=== PATIENT | male | born 1975 | race Caucasian/White ===

== ENCOUNTER → 2016-05-26 | Outpatient (CLI) | payer OTHER ==
[~2016-05-26] MED LIST: HYDR-757 PO; LEVO500T2 PO
--- NOTE | 2016-05-26 14:44 | Diagnostic Imaging Report ---
PROCEDURE: CT chest without contrast. TECHNIQUE: Multiple contiguous axial images were obtained through the chest without the use of intravenous contrast. INDICATION: Mid chest pain, shortness of breath, posterior upper back pain for two weeks, history of asthma. COMPARISON STUDIES: None. FINDINGS: Noncontrast CT scanning of the chest demonstrates normal appearance of the mediastinum. Heart size is normal. No pleural or pericardial effusions are present. The visualized portions of the abdomen are normal. The lungs are clear. No fibrosis or peribronchial thickening is present. The osseous structures appear unremarkable. IMPRESSION: Normal noncontrast CT scan of the chest. Dictated by: Dictated on workstation # [id number]
== END ==
LOC: RAD 12:21
PROVIDERS: ATTEND Nurse Practitioner Community Health
DX: J45.901 Unspecified asthma with (acute) exacerbation (principal)
CPT/HCPCS: 71250

== ENCOUNTER 2016-09-22 12:51 | Outpatient (CLI) | payer OTHER ==
[~2016-09-22] VITALS: Ht 177.8 cm; Wt 104.3 kg
[2016-09-22] MEDS ORDERED: RT-ALBUINH IH (14:26)
[2016-09-23] MEDS ORDERED: DOCU-143 PO (13:59)
[2016-09-23] MEDS ORDERED: HYDR-3812 PO (13:59)
== END 2016-09-22 14:35 ==
LOC: PREOP 12:51
PROVIDERS: ATTEND Surgery
DX: Z01.818 Encounter for other preprocedural examination (principal); L98.9 Disorder of the skin and subcutaneous tissue, unspecified

== ENCOUNTER 2016-09-23 11:12 | Day surgery (SDC) | payer OTHER ==
[~2016-09-23] VITALS: Ht 177.8 cm; Wt 104.3 kg
[~2016-09-23 11:12] MED LIST changes: +RT-ALBUINH IH
[2016-09-23 11:30] VITALS: BP 133/93
[2016-09-23] MEDS ORDERED: ceFAZolin 2 GM/NS 50 ML IV ONE (11:30)
[2016-09-23] MEDS ORDERED: CATHETER FLUSH 10 ML SYR IV PRN (11:30)
--- NOTE | 2016-09-23 12:13 | Progress Note-Pre Operative ---
Pre-Operative Progress Note H&P Reviewed The H&P was reviewed, patient examined and no changes noted. Date Seen by Provider: Sep 23, 2016 Time Seen by Provider: 12:13 Date H&P Reviewed: Sep 23, 2016 Time H&P Reviewed: 12:13 Pre-Operative Diagnosis: left lower extremity skin lesion JOSE CUMMINGS DO Sep 23, 2016 12:13 pm
[2016-09-23] MEDS ORDERED: LACTATED RINGERS 1,000 ML IV PRN (12:21)
[2016-09-23] MEDS ORDERED: LIDOCAINE 1% INJ 20 ML (XYLOCAINE) VIAL ONE (13:06)
[2016-09-23] MEDS ORDERED: BUPIVACAINE 0.5% 30 ML (SENSORCAINE) VIAL ONE (13:06)
[2016-09-23] MEDS ORDERED: MIDAZOLAM 2 MG/2 ML (VERSED) VIAL ONE (13:16)
[2016-09-23] MEDS ORDERED: fentaNYL INJECTION 100 MCG/2 ML AMP ONE (13:16)
[2016-09-23] MEDS ORDERED: proPOfol 200 MG/20 ML (DIPRIVAN) VIAL IV ONE (13:16)
[2016-09-23] MEDS ORDERED: SEVOFLURANE (ULTANE) 15 ML INHAL SOLN ONE ×4 (13:44→13:49)
[2016-09-23] MEDS ORDERED: ONDANSETRON 4 MG/2 ML (SDV) Z0FRAN ONE (13:44)
[2016-09-23] MEDS ORDERED: LACTATED RINGERS 1,000 ML IV ONE (13:49)
[2016-09-23] MEDS ORDERED: HYDR-3812 PO (13:59)
[2016-09-23] MEDS ORDERED: DOCU-143 PO (13:59)
[2016-09-23] MEDS ORDERED: HYDROmorphone (DILAUDID) 2 MG/ML VIAL IVP PRN (14:00)
[2016-09-23] MEDS ORDERED: morphine INJ 10 MG/ML 1ML (SYR OR VIAL) IVP PRN (14:00)
[2016-09-23] MEDS ORDERED: ONDANSETRON 4 MG/2 ML (SDV) Z0FRAN IVP PRN (14:00)
--- NOTE | 2016-09-23 14:01 | Discharge Inst-Simple/Standard ---
Discharge Inst-Standard Discharge Medications New, Converted or Re-Newed RX: RX on Chart Patient Instructions/Follow Up Plan of Care/Instructions/FU: Follow up with Dr. Bejarano in 2 weeks Keep wound clean and dry Activity as Tolerated: No Discharge Diet: No Restrictions Other Inst to Patient Follow up Appt: Make appointment for 2 weeks. Instructions: No lifting greater than 10 pounds. No strenuous activity. May shower in 24 hours, no tub bath or soaking. Use incentive spirometer at home as directed. No Smoking Skin/Wound Care: May remove bandages. keep wound clean and dry Symptoms to Report: Appetite Changes, Extremity Discoloration, Numbness/Tingling, Swelling Increased , Bleeding Excessive, Eyesight Changes, Pain Increased, Urine Color Change, Constipation(Persistent), Fever over 101 degree F, Pain/Pressure in chest, Urinating Difficulty, Cough Up/Vomit Blood, Heart Beat Irreg/Pounding, Pain/ Pressure in jaw, Vaginal Bleeding Increase, Cramps in feet or legs, Lightheadedness, Pain/Pressure in shoulder, Diarrhea(Persistent), Memory Changes Suddenly, Questions/Concerns, Weight gain consecutive days, Dizziness/ Fainting, Nausea/Vomiting, Shortness of Breath, Weight gain over 2 pounds If questions or concerns contact your physician Or seek help at emergency department. JEANNINE MCNULTY APRN Sep 23, 2016 2:00 pm
--- NOTE | 2016-09-23 14:23 | Progress Note-Post Operative ---
Post-Operative Progess Note Surgeon (s)/Dredge Pipe Operator (s) Surgeon JOSE CUMMINGS DO Dredge Pipe Operator: na Pre-Operative Diagnosis left lower extremity skin lesion Post-Operative Diagnosis same Procedure & Operative Findings Date of Procedure 09/23/16 Procedure Performed/Findings excision skin lesion left lower extremity 2x4 cm Anesthesia Type gen Estimated Blood Loss Estimated blood loss (mL): min Specimens/Packing Specimens Removed skin lesion JOSE CUMMINGS DO Sep 23, 2016 14:23
[2016-09-23 14:35] VITALS: BP 119/99
[2016-09-23 15:05] VITALS: BP 121/85
--- NOTE | 2016-09-24 12:33 | OPERATIVE REPORT ---
PROCEDURE PHYSICIAN: JOSE CUMMINGS DATE OF PROCEDURE: 09/23/2016 PREOPERATIVE DIAGNOSIS: Left lower extremity skin lesion. POSTOPERATIVE DIAGNOSIS: Left lower extremity skin lesion. SURGEON: Darci PROCEDURE: Excision of skin lesion left lower extremity 2 x 4 cm. ANESTHESIA: General. ESTIMATED BLOOD LOSS: Minimal. SPECIMENS: Skin lesion. INDICATIONS: The patient is a 41-year-old male with skin lesion of the left lower extremity. It was recommended to have it removed. He understands the risks and benefits and wished to proceed with the procedure. Consent was signed on the chart. PROCEDURE: The patient was taken operating suite. He was prepped and draped in sterile fashion. A surgical pause was performed. An elliptical incision measuring 2 x 4 cm was made around the skin lesion and cautery was used to remove the skin and subcutaneous tissue. The specimens were labeled short suture superiorly and long suture laterally. The skin was then mobilized from the subcutaneous tissues circumferentially in order to help with closure. 2-0 nylon was then used to close the skin using simple interrupted and vertical mattress sutures. Once the wound was closed, the area was washed and dried. Sterile bandage was applied. The patient tolerated the procedure well without any complications. He was taken to recovery room in stable condition. Job ID: [id number] Dictated Date: 09/23/2016 14:24:11 Innov[employer] Paraprofessional Date: 09/24/2016 12:24:53 / pankaj
--- OUTSIDE RECORDS SUMMARY | 2016-09-30 03:30 | XMS REPORT | Continuity of Care Document ---
Author Author [facility] Address Unknown Phone Unavailable Allergies Active Description Code Type Severity Reaction Onset Reported/Identified Relationship to Patient Clinical Status Yes No Known Drug Allergies [id number] Drug Allergy Unknown N/ A 11/23/2014 Medications Problems Date Dx Coded Attending Type Code Diagnosis Diagnosed By 08/21/2009 JOSE CHILDERS APRN 463 ACUTE TONSILLITIS 03/23/2010 JOSE CHILDERS APRN 278.02 OVERWEIGHT 03/23/2010 JOSE CHILDERS APRN 305.1 NONDEPENDENT TOBACCO USE DISORDER 03/23/2010 JOSE CHILDERS APRN 466.0 BRONCHITIS, ACUTE 03/23/2010 JOSE CHILDERS APRN 780.79 fatigue 03/23/2010 JOSE CHILDERS APRN 786.09 RESPIRATORY ABNORMALITY OTHER 03/23/2010 JOSE CHILDERS APRN V65.3 DIETARY SURVEILLANCE AND COUNSELING 04/26/2011 JOSE CHILDERS APRN 461.9 SINUSITIS ACUTE 04/26/2011 JOSE CHILDERS APRN 477.9 RHINITIS 04/26/2011 JOSE CHILDERS APRN 487.1 INFLUENZA WITH OTHER RESPIRATORY MANIFESTATIONS 04/26/2011 JOSE CHILDERS APRN 493.90 ASTHMA UNSPECIFIED 04/26/2011 JOSE CHILDERS APRN V65.42 COUNSELING - SMOKING CESSATION 11/23/2014 BELEM SANDERS APRN Ot 604.90 ORCHITIS/EPIDIDYMIT NOS 11/23/2014 BELEM SANDERS APRN Ot 789.00 ABDOMINAL PAIN, UNSPECIFIED SITE 06/24/2016 JOSE CHILDERS Ot J45.901 UNSPECIFIED ASTHMA WITH (ACUTE) EXACERBA 09/22/2016 JOSE CHILDERS Ot J45.901 UNSPECIFIED ASTHMA WITH (ACUTE) EXACERBA 09/23/2016 JOSE CUMMINGS DO Ot L98.9 DISORDER OF THE SKIN AND SUBCUTANEOUS TI Procedures Results Test Result Range Methicillin resistant Staphylococcus aureus (MRSA) screening culture - 11:25 Methicillin resistant Staphylococcus aureus (MRSA) screening culture NEG NRG Encounters ACCT No. Visit Date/Time Discharge Status Pt. Type Provider Facility Loc./Unit Complaint [id number] 09/12/2013 17:03:00 09/12/2013 23: 59:59 CLS Outpatient JOSE CHILDERS APRN
== END 2016-09-23 15:07 | disposition home or self-care (01) ==
LOC: SDC 11:12
PROVIDERS: ATTEND Surgery
DX: C43.72 Malignant melanoma of left lower limb, including hip (principal); I83.92 Asymptomatic varicose veins of left lower extremity; J45.909 Unspecified asthma, uncomplicated; F17.210 Nicotine dependence, cigarettes, uncomplicated
CPT/HCPCS: 87081; 88305; 88341; 88342

== ENCOUNTER → 2017-01-21 | Outpatient (CLI) | payer OTHER ==
[~2017-01-21] MED LIST changes: +DOCU-143 PO; +HYDR-3812 PO
== END ==
LOC: WOUNDCARE 12:07
PROVIDERS: ATTEND Surgery
DX: L97.222 Non-pressure chronic ulcer of left calf with fat layer exposed (principal); L03.116 Cellulitis of left lower limb; S81.802A Unspecified open wound, left lower leg, initial encounter; I87.332 Chronic venous hypertension (idiopathic) with ulcer and inflammation of left lower extremity; C43.72 Malignant melanoma of left lower limb, including hip
CPT/HCPCS: 11042; 87070; 87075; 87077; 87186; 87205

== ENCOUNTER → 2017-01-25 | Outpatient (CLI) | payer OTHER | LOC: WOUNDCARE 15:31 | PROVIDERS: ATTEND Surgery | DX: L97.222 Non-pressure chronic ulcer of left calf with fat layer exposed (principal); L03.116 Cellulitis of left lower limb; S81.802A Unspecified open wound, left lower leg, initial encounter; I87.332 Chronic venous hypertension (idiopathic) with ulcer and inflammation of left lower extremity; C43.72 Malignant melanoma of left lower limb, including hip | CPT/HCPCS: 11042; 11045 ==

== ENCOUNTER → 2017-02-04 | Outpatient (CLI) | payer OTHER | LOC: WOUNDCARE 08:23 | PROVIDERS: ATTEND Surgery | DX: L97.222 Non-pressure chronic ulcer of left calf with fat layer exposed (principal); S81.802A Unspecified open wound, left lower leg, initial encounter; I87.332 Chronic venous hypertension (idiopathic) with ulcer and inflammation of left lower extremity; C43.72 Malignant melanoma of left lower limb, including hip | CPT/HCPCS: 11042; 11045 ==

== ENCOUNTER → 2017-02-09 | Outpatient (CLI) | payer OTHER | LOC: WOUNDCARE 10:03 | PROVIDERS: ATTEND Surgery | DX: I87.332 Chronic venous hypertension (idiopathic) with ulcer and inflammation of left lower extremity (principal); L97.222 Non-pressure chronic ulcer of left calf with fat layer exposed; S81.802A Unspecified open wound, left lower leg, initial encounter; C43.72 Malignant melanoma of left lower limb, including hip | CPT/HCPCS: 11042; 11045 ==

== ENCOUNTER 2017-02-16 12:26 | Outpatient (RCR) | payer MEDICAID, OTHER ==
[~2017-02-16 12:26] MED LIST changes: +ACHD5005 PO; -HYDR-3812 PO
== END 2017-05-17 | disposition home or self-care (01) ==
LOC: ONC 12:26
PROVIDERS: ATTEND Internal Medicine Hematology & Oncology
DX: Z08 Encounter for follow-up examination after completed treatment for malignant neoplasm (principal); Z85.820 Personal history of malignant melanoma of skin; F17.210 Nicotine dependence, cigarettes, uncomplicated; Z80.3 Family history of malignant neoplasm of breast; Z80.0 Family history of malignant neoplasm of digestive organs; Z80.1 Family history of malignant neoplasm of trachea, bronchus and lung; R10.11 Right upper quadrant pain
CPT/HCPCS: 99214

== ENCOUNTER → 2017-02-18 | Outpatient (CLI) | payer OTHER ==
[~2017-02-18] MED LIST changes: -ACHD5005 PO; +HYDR-3812 PO
== END ==
LOC: WOUNDCARE 08:24
PROVIDERS: ATTEND Surgery
DX: L97.222 Non-pressure chronic ulcer of left calf with fat layer exposed (principal); S81.802A Unspecified open wound, left lower leg, initial encounter; I87.332 Chronic venous hypertension (idiopathic) with ulcer and inflammation of left lower extremity; C43.72 Malignant melanoma of left lower limb, including hip
CPT/HCPCS: 11042

== ENCOUNTER → 2017-03-03 | Outpatient (CLI) | payer OTHER ==
[~2017-03-03] MED LIST changes: +ACHD5005 PO; -HYDR-3812 PO
== END ==
LOC: WOUNDCARE 13:36
PROVIDERS: ATTEND Surgery
DX: L97.222 Non-pressure chronic ulcer of left calf with fat layer exposed (principal); S81.802A Unspecified open wound, left lower leg, initial encounter; I87.332 Chronic venous hypertension (idiopathic) with ulcer and inflammation of left lower extremity; C43.72 Malignant melanoma of left lower limb, including hip
CPT/HCPCS: 11042

== ENCOUNTER → 2017-03-11 | Outpatient (CLI) | payer OTHER | LOC: WOUNDCARE 08:22 | PROVIDERS: ATTEND Surgery | DX: L97.222 Non-pressure chronic ulcer of left calf with fat layer exposed (principal); S81.802A Unspecified open wound, left lower leg, initial encounter; I87.332 Chronic venous hypertension (idiopathic) with ulcer and inflammation of left lower extremity; C43.72 Malignant melanoma of left lower limb, including hip | CPT/HCPCS: 11042 ==

== ENCOUNTER → 2017-03-25 | Outpatient (CLI) | payer OTHER | LOC: WOUNDCARE 08:28 | PROVIDERS: ATTEND Surgery | DX: L97.222 Non-pressure chronic ulcer of left calf with fat layer exposed (principal); S81.802A Unspecified open wound, left lower leg, initial encounter; I87.332 Chronic venous hypertension (idiopathic) with ulcer and inflammation of left lower extremity; C43.72 Malignant melanoma of left lower limb, including hip | CPT/HCPCS: 99212 ==

== ENCOUNTER → 2017-05-09 | Outpatient (CLI) | payer OTHER | LOC: ONC 09:00 | PROVIDERS: ATTEND Nurse Practitioner Adult Health | DX: C43.72 Malignant melanoma of left lower limb, including hip (principal) | CPT/HCPCS: 99213 ==

== ENCOUNTER 2017-05-18 09:04 | Outpatient (RCR) | payer MEDICAID, OTHER ==
[2017-05-18 09:14] LABS: BASOPHILS % (AUTO) 0 % (0-10); EOSINOPHILS # (AUTO) 0.1 10^3/uL (0.0-0.3); EOSINOPHILS % (AUTO) 1 % (0-10); HEMATOCRIT 45 % (40-54); HEMOGLOBIN 15.4 G/DL (13.3-17.7); LYMPHOCYTES # (AUTO) 2.7 X 10^3 (1.0-4.0); LYMPHOCYTES % (AUTO) 26 % (12-44); MEAN CORPUSCULAR HEMOGLOBIN 32 PG (25-34); MEAN CORPUSCULAR HGB CONC 34 G/DL (32-36); MEAN CORPUSCULAR VOLUME 95 FL (80-99); MEAN PLATELET VOLUME 9.3 FL (7.4-10.4); MONOCYTES # (AUTO) 0.8 X 10^3 (0.0-1.0); MONOCYTES % (AUTO) 8 % (0-12); NEUTROPHILS # (AUTO) 6.6 X 10^3 (1.8-7.8); NEUTROPHILS % (AUTO) 65 % (42-75); PLATELET COUNT 314 10^3/uL (130-400); RED BLOOD COUNT 4.75 10^6/uL (4.35-5.85); RED CELL DISTRIBUTION WIDTH 13.4 % (10.0-14.5); WHITE BLOOD COUNT 10.1 10^3/uL (4.3-11.0)
[2017-05-18 09:44] LABS: ALANINE AMINOTRANSFERASE 24 U/L (0-55); ALBUMIN 4.3 GM/DL (3.2-4.5); ALKALINE PHOSPHATASE 66 U/L (40-136); BILIRUBIN,TOTAL 0.4 MG/DL (0.1-1.0); BUN/CREATININE RATIO 15; CALCIUM 9.6 MG/DL (8.5-10.1); CARBON DIOXIDE 27 MMOL/L (21-32); CHLORIDE 103 MMOL/L (98-107); CREATININE SERUM 1.14 MG/DL (0.60-1.30); GFR ESTIMATED > 60; GLUCOSE 126 MG/DL (70-105); POTASSIUM 3.9 MMOL/L (3.6-5.0); SODIUM 140 MMOL/L (135-145); TOTAL PROTEIN 7.4 GM/DL (6.4-8.2)
[2017-08-22] MEDS ORDERED: ACHD5005 PO (11:36)
[2017-08-22] MEDS ORDERED: DOCU-143 PO (11:36)
== END 2017-08-16 | disposition home or self-care (01) ==
LOC: ONC 09:04
PROVIDERS: ATTEND Internal Medicine Hematology & Oncology
DX: Z08 Encounter for follow-up examination after completed treatment for malignant neoplasm (principal); Z85.820 Personal history of malignant melanoma of skin; F17.210 Nicotine dependence, cigarettes, uncomplicated; Z80.3 Family history of malignant neoplasm of breast; Z80.0 Family history of malignant neoplasm of digestive organs; Z80.1 Family history of malignant neoplasm of trachea, bronchus and lung; R10.11 Right upper quadrant pain
CPT/HCPCS: 36415; 80053; 83615; 85025; 99213

== ENCOUNTER → 2017-08-03 | Outpatient (CLI) | payer MEDICAID, OTHER ==
--- NOTE | 2017-08-03 09:23 | Diagnostic Imaging Report ---
PROCEDURE: US Gallbladder. TECHNIQUE: Multiple real-time grayscale images were obtained over the right upper quadrant in various projections. INDICATION: Reflux. The pancreas is obscured by bowel gas. The liver is normal in size at 17.9 cm. No discrete liver masses identified. The portal vein is patent and shows normal direction of flow. The gallbladder is without stones or sludge. No wall thickening or pericholecystic fluid is seen. There is no biliary ductal dilatation. The right kidney is unremarkable. There is no ascites. Impression: No evidence of cholelithiasis or acute cholecystitis. Dictated by: Dictated on workstation # [id number]
== END ==
LOC: RAD 06:46
PROVIDERS: ATTEND Surgery
DX: K21.9 Gastro-esophageal reflux disease without esophagitis (principal)
CPT/HCPCS: 76705

== ENCOUNTER → 2017-08-12 | Outpatient (CLI) | payer MEDICAID ==
[~2017-08-12] MED LIST changes: +CATHETER FLUSH 10 ML SYR IV PRN
--- NOTE | 2017-08-12 13:35 | Diagnostic Imaging Report ---
EXAMINATION: Hepatobiliary scan. INDICATION: Epigastric pain. TECHNIQUE: The study was performed following administration of 4.5 mCi of technetium-99m Choletec. One can of Ensure was also used for the calculation of the ejection fraction. FINDINGS: There are no previous nuclear medicine studies available for comparison. The gallbladder ultrasound exam performed on 08/03/2017 failed to show any sign of cholelithiasis or acute cholecystitis. On this exam, there is no uptake of the radiotracer by the gallbladder until 35 minutes. Normally, there is uptake before 30 minutes. The slightly delayed uptake of the radiotracer by the gallbladder does suggest there may be an element of mild chronic cholecystitis present. There is extension of the radiotracer into the small bowel indicating that the common bile duct is not obstructed. The ejection fraction is 34.5% (normal 35%). IMPRESSION: 1. The slightly delayed uptake of the radiotracer by the gallbladder does raise the question of mild chronic cholecystitis. The ejection fraction is also just below normal limits. Clinical follow-up is recommended. 2. There is no evidence for obstruction of the common bile duct. Dictated by: Dictated on workstation # [id number]
== END ==
LOC: CARD 09:38
PROVIDERS: ATTEND Surgery
DX: R10.13 Epigastric pain (principal)
CPT/HCPCS: 78227

== ENCOUNTER 2017-08-18 05:40 | Outpatient (CLI) | payer MEDICAID ==
[~2017-08-18] VITALS: Ht 177.8 cm; Wt 104.3 kg
[~2017-08-18 05:40] MED LIST changes: -CATHETER FLUSH 10 ML SYR IV PRN
[2017-08-22] MEDS ORDERED: DOCU-143 PO (11:36)
[2017-08-22] MEDS ORDERED: ACHD5005 PO (11:36)
== END 2017-08-18 14:00 ==
LOC: PREOP 05:40
PROVIDERS: ATTEND Surgery
DX: Z01.818 Encounter for other preprocedural examination (principal); K82.8 Other specified diseases of gallbladder

== ENCOUNTER 2017-08-22 09:39 | Day surgery (SDC) | payer MEDICAID ==
[~2017-08-22] VITALS: Ht 177.8 cm; Wt 104.3 kg
--- OUTSIDE RECORDS SUMMARY | 2017-08-22 09:43 | XMS REPORT ---
Author Author DEEDEE MORRISSEY Organization [facility] Address [address] [place] [address] Care Team Providers Care Guide Dog Trainer Name Role Phone DEEDEE MORRISSEY Unavailable PROBLEMS Type Condition ICD9-CM Code VWN61-EN Code Onset Dates Condition Status SNOMED Code Problem Smoking F17.200 Active 38375587 Problem Mild intermittent asthma without complication J45.20 Active 790292914 Problem Cigarette nicotine dependence without complication F17.210 Active 92851330 Problem Skin lesion of left lower extremity L98.9 Active 76855256 Problem Asthma exacerbation J45.901 Active 395146459 ALLERGIES No Known Allergies SOCIAL HISTORY Never Assessed PLAN OF CARE Activity Details Follow Up prn Reason: VITAL SIGNS Height 70 in 2016-05-18 Weight 235 lbs 2016-05-18 Temperature 98.5 degrees Fahrenheit 2016-05-18 Heart Rate 76 bpm 2016-05-18 Respiratory Rate 20 2016-05-18 BMI 33.72 kg/m2 2016-05-18 Blood pressure systolic 130 mmHg 2016-05-18 Blood pressure diastolic 84 mmHg 2016-05-18 MEDICATIONS Medication Instructions Dosage Frequency Start Date End Date Duration Status Doxycycline Hyclate 100 mg Orally Twice a day 1 capsule 12h May, May, 07 days Active PredniSONE 50 mg Orally Once a day 1 tablet 24h May, May, 05 days Active Proventil HFA 108 (90 Base) MCG/ACT Inhalation every 4 hrs INHALE TWO PUFFS BY MOUTH FOUR TIMES DAILY NEEDED 4h 30 days Active RESULTS No Results PROCEDURES No Known procedures IMMUNIZATIONS No Known Immunizations MEDICAL (GENERAL) HISTORY Type Description Date Medical History acute asthma Surgical History right pinky surgery
--- OUTSIDE RECORDS SUMMARY | 2017-08-22 09:43 | XMS REPORT ---
Author Author JOSE CHILDERS [facility] Address [address] [place] [address] Care Team Providers Care Coin Machine Assembler Name Role Phone JOSE CHILDERS Unavailable PROBLEMS Type Condition ICD9-CM Code BQW13-IZ Code Onset Dates Condition Status SNOMED Code Problem Smoking F17.200 Active 41119385 Problem Mild intermittent asthma without complication J45.20 Active 934533853 Problem Cigarette nicotine dependence without complication F17.210 Active 14189638 Problem Skin lesion of left lower extremity L98.9 Active 09908724 Problem Asthma exacerbation J45.901 Active 631805070 ALLERGIES No Information SOCIAL HISTORY Never Assessed PLAN OF CARE VITAL SIGNS MEDICATIONS No Known Medications RESULTS No Results PROCEDURES No Known procedures IMMUNIZATIONS No Known Immunizations MEDICAL (GENERAL) HISTORY Type Description Date Medical History acute asthma Surgical History right pinky surgery
--- OUTSIDE RECORDS SUMMARY | 2017-08-22 09:43 | XMS REPORT | Clinical Summary ---
Author Author [facility] Organization [facility] Address Unknown Phone Unavailable Care Team Providers Care Recycling Specialist Name Role Phone No Pcp, Na PCP Unavailable Source Comments Some departments are not documenting in the electronic medical record. If you do not see the information that you expected, contact Release of Information in the Health Information Management department at [phone] for further assistance in locating additional records.[facility] Allergies No Known Allergies Current Medications Prescription Sig. Disp. Refills Start End Date Status Date albuterol (PROVENTIL HFA) Inhale 2 puffs by mouth Active 90 mcg/actuation inhaler into the lungs every 6 hours as needed for Wheezing or Shortness of Breath. Shake well before use. cephalexin (KEFLEX) 500 Take 500 mg by mouth four Active mg capsule times daily. budesonide/formoterol Inhale 2 puffs by mouth Active (SYMBICORT HFA) 160/4.5 into the lungs twice mcg inhalation daily. HYDROcodone/acetaminophen Take 1 tablet by mouth 60 tablet 0 11/26/19 Active (NORCO) 5/325 mg tablet every 4 hours as needed 17 for Pain IBUPROFEN IB PO Take by mouth daily. Active oxyCODONE (ROXICODONE, Take 1-2 tablets by mouth 50 tablet 0 12/10/19 Active OXY-IR) 5 mg tablet every 4 hours as needed 17 for Pain gabapentin (NEURONTIN) Take 1 capsule by mouth 30 capsule 2 01/05/20 Active 300 mg capsule at bedtime daily. 17 Bismuth Apply xeroform to the 30 each 2 01/05/20 Active Tribrom-Petrolatum,Wh graft on the left leg 17 (XEROFORM PETROLATUM daily DRESSING) 4 X 4 " bndg Active Problems Problem Noted Date Melanoma (HCC) 10/14/2016 Family History Medical History Relation Name Comments Cancer-Lung Father Cancer-Breast Sister Cancer-Colon Sister Relation Name Status Comments Father Sister Social History Tobacco Use Types Packs/Day Years Used Date Current Every Day Smoker 1 27 Smokeless Tobacco: Never Used Alcohol Use Drinks/Week oz/Week Comments Yes 2 Shots of 1.2 pt reorts drinking 16 ounces of peppermint liquor Schnopps per week Sex Assigned at Date Recorded Not on file Last Filed Vital Signs Vital Sign Reading Time Taken Blood Pressure 130/93 01/04/2017 11:10 AM CDT Pulse 77 01/04/2017 11:10 AM CDT Temperature 37 C (98.6 F) 01/04/2017 11:10 AM CDT Respiratory Rate 16 12/09/2016 3:26 PM CDT Oxygen Saturation 100% 01/04/2017 11:10 AM CDT Inhaled Oxygen - - Concentration Weight 107.8 kg (237 lb 9.6 oz) 01/04/2017 11:10 AM CDT Height 177.8 cm (5' 10") 01/04/2017 11:10 AM CDT Body Mass Index 34.09 01/04/2017 11:10 AM CDT Plan of Treatment Health Maintenance Due Date Last Done Comments PHYSICAL (COMPREHENSIVE) 07/14/1983 EXAM PERTUSSIS VACCINE 07/14/1987 HIV SCREENING 07/14/1991 TETANUS VACCINE 1993 INFLUENZA VACCINE 12/05/2017 Results Not on filefrom Last 3 Months
--- OUTSIDE RECORDS SUMMARY | 2017-08-22 09:43 | XMS REPORT ---
Author Author GRAYTANYA Monge Organization [facility] Address [address] [place] [address] Care Team Providers Care Mechanical Unit Repairer Name Role Phone TANYA GRAY Unavailable PROBLEMS Type Condition ICD9-CM Code QTZ86-AN Code Onset Dates Condition Status SNOMED Code Problem Smoking F17.200 Active 16642378 Problem Mild intermittent asthma without complication J45.20 Active 108852403 Problem Cigarette nicotine dependence without complication F17.210 Active 67955036 Problem Skin lesion of left lower extremity L98.9 Active 90911865 Problem Asthma exacerbation J45.901 Active 940283107 ALLERGIES No Known Allergies ENCOUNTERS Encounter Location Date Diagnosis [place] [id number] [address] [id number] [place] [address] Sep, Skin lesion of left lower extremity L98.9 ; Mild intermittent asthma without complication J45.20 and Smoking F17.200 [place] [address] [address] [id number] [place] [address] Sep, Skin lesion of left lower extremity L98.9 [facility] [address] [place] [address] May, [facility] [id number] [place] [address] May, [place] [address] [place] [address] 17 May, 2016 Asthma exacerbation J45.901 [place] [id number] [place] [address] 14 May, 2016 Mild persistent asthma with acute exacerbation J45.31 and Cigarette nicotine dependence without complication F17.210 [place] [id number] [place] [address] July, [facility] [id number] [address] Jun, [facility] [address] [place] [address] Jun, [facility] [id number] [address] Sep, [facility] [address] [place] [address] Sep, [facility] [address] [facility] [id number] [address] Apr, [facility] [address] [place] [address] Mar, [facility] [id number] [address] Aug, IMMUNIZATIONS No Known Immunizations SOCIAL HISTORY Never Assessed REASON FOR VISIT spot on the lower left leg that has been there for a few years but now is getting larger and tender to the touch, PT has concerns beacuase cancer runs in his family- Matilda BRAMBILA PLAN OF CARE Activity Details Follow Up 2 - 3 Days Reason:est care VITAL SIGNS Height 70 in 2016-09-14 Weight 233.1 lbs 2016-09-14 Temperature 99.0 degrees Fahrenheit 2016-09-14 Heart Rate 86 bpm 2016-09-14 Respiratory Rate 22 2016-09-14 BMI 33.44 kg/m2 2016-09-14 Blood pressure systolic 126 mmHg 2016-09-14 Blood pressure diastolic 90 mmHg 2016-09-14 MEDICATIONS Medication Instructions Dosage Frequency Start Date End Date Duration Status Proventil HFA 108 (90 Base) MCG/ACT Inhalation every 4 hrs INHALE TWO PUFFS BY MOUTH FOUR TIMES DAILY NEEDED 4h 30 days Active RESULTS No Results PROCEDURES No Known procedures INSTRUCTIONS MEDICATIONS ADMINISTERED No Known Medications MEDICAL (GENERAL) HISTORY Type Description Date Medical History acute asthma Surgical History right pinky surgery
--- OUTSIDE RECORDS SUMMARY | 2017-08-22 09:43 | XMS REPORT ---
Author Author JOSE CHILDERS Organization [facility] Address [address] [place] [address] Care Team Providers Care Implementation Project Coordinator Name Role Phone JOSE CHILDERS Unavailable PROBLEMS Type Condition ICD9-CM Code DGL87-PT Code Onset Dates Condition Status SNOMED Code Problem Smoking F17.200 Active 00826433 Problem Mild intermittent asthma without complication J45.20 Active 892719717 Problem Cigarette nicotine dependence without complication F17.210 Active 05019733 Problem Skin lesion of left lower extremity L98.9 Active 96780642 Problem Asthma exacerbation J45.901 Active 641325503 ALLERGIES No Known Allergies SOCIAL HISTORY Never Assessed PLAN OF CARE VITAL SIGNS Height 70 in 2016-05-21 Weight 232.1 lbs 2016-05-21 Temperature 98.8 degrees Fahrenheit 2016-05-21 Heart Rate 94 bpm 2016-05-21 Respiratory Rate 20 2016-05-21 Oximetry on room air:98 % 2016-05-21 BMI 33.30 kg/m2 2016-05-21 Blood pressure systolic 130 mmHg 2016-05-21 Blood pressure diastolic 86 mmHg 2016-05-21 MEDICATIONS Medication Instructions Dosage Frequency Start Date End Date Duration Status Proventil HFA 108 (90 Base) MCG/ACT Inhalation every 4 hrs INHALE TWO PUFFS BY MOUTH FOUR TIMES DAILY NEEDED 4h 30 days Active PredniSONE 50 mg Orally Once a day 1 tablet 24h May, May, 05 days Active Doxycycline Hyclate 100 mg Orally Twice a day 1 capsule 12h May, May, 07 days Active Chantix 1 MG Orally Twice a day 1 tablet 12h 17 May, 2016 Nov, 30 day(s) Active RESULTS Name Result Date Reference Range CT Scan : Chest w/o Contrast 2016-05-26 PROCEDURES Procedure Date Ordered Result Body Site MEASURE BLOOD OXYGEN LEVEL May 21, 2016 IMMUNIZATIONS No Known Immunizations MEDICAL (GENERAL) HISTORY Type Description Date Medical History acute asthma Surgical History right pinky surgery
--- OUTSIDE RECORDS SUMMARY | 2017-08-22 09:44 | XMS REPORT ---
Author Author JOSE CHILDERS [facility] Address [address] [place] [address] Care Team Providers Care Wire Drawing Machine Tender Name Role Phone JOSE CHILDERS Unavailable PROBLEMS Type Condition ICD9-CM Code KIG68-TG Code Onset Dates Condition Status SNOMED Code Problem Smoking F17.200 Active 67344867 Problem Mild intermittent asthma without complication J45.20 Active 589578282 Problem Cigarette nicotine dependence without complication F17.210 Active 47117897 Problem Skin lesion of left lower extremity L98.9 Active 62449489 Problem Asthma exacerbation J45.901 Active 191291309 ALLERGIES No Information SOCIAL HISTORY Never Assessed PLAN OF CARE VITAL SIGNS MEDICATIONS No Known Medications RESULTS No Results PROCEDURES No Known procedures IMMUNIZATIONS No Known Immunizations MEDICAL (GENERAL) HISTORY Type Description Date Medical History acute asthma Surgical History right pinky surgery
--- OUTSIDE RECORDS SUMMARY | 2017-08-22 09:45 | XMS REPORT | Continuity of Care Document ---
Author Author Formerly [facility] Address Unknown Phone Unavailable Allergies Active Description Code Type Severity Reaction Onset Reported/Identified Relationship to Patient Clinical Status Yes NO KNOWN DRUG ALLERGIES UNKNOWN NO KNOWN DRUG ALLERG Yes No Known Drug Allergies [id number] Drug Allergy Unknown N/A 11/23/2014 Medications Medication Packaging Start Date Stop Date Route Dosage Sig FENTANYL INJ 100 MCG/2CC VIAL MCG 11/20/2016 11/20/2016 ONCE&2046 Hydromorphone inj 2mg/cc vial (Dilaudid) MG 11/20/2016 11/20/2016 PRN ONCE NORMAL SALINE 50CC IV BAG INJ (NS 50CC MINI-BAG) ml 11/20/2016 11/20/2016 ONCE&2135 SMZ/TMP DS TAB (SEPTRA DS) (Bactrim DS) TAB 11/20/2016 11/20/2016 ONCE&2137 Hydromorphone inj 2mg/cc vial (Dilaudid) MG 11/20/2016 11/20/2016 PRN ONCE KETOROLAC VIAL INJ 30 MG/CC (TORADOL VIAL) MG 11/20/2016 11/20/2016 PRN ONCE OXYCODONE/APAP 10MG/325MG TAB(PERCOCET-10) TAB 11/20/2016 11/20/2016 PRN ONCE SMZ/TMP DS TAB (SEPTRA DS) (Bactrim DS) TAB 11/21/2016 11/27/2016 BID&0800,2000 Hydromorphone inj 2mg/cc vial (Dilaudid) MG 12/23/2016 12/23/2016 ONCE&1725 AMOX-CLAV 875/125 TAB 875 MG-125MG (AUGMENTIN) TAB 12/23/2016 12/23/2016 ONCE&1728 Hydromorphone inj 2mg/cc vial (Dilaudid) MG 12/23/2016 12/23/2016 PRN ONCE BUDESONIDE/FORMOTEROL INH 160 /4.5MCG (SYMBICORT) Dose(s) 06/30/2017 07/07/2017 BID&0800,2000 PANTOPRAZOLE TAB 40 MG (PROTONIX) Dose(s) 07/01/2017 07/07/2017 QAM&0800 LACTATED RINGERS 1000CC IV BAG INJ ml 07/04/2017 07/11/2017 CONTINUOUSEVERY 0 Hour ALBUTEROL SVN 2.5MG/3CC LIQ 2.5 MG (PROVENTIL MILA 2.5MG/3CC) MG 07/04/2017 07/04/2017 ONCE&0804 Problems Date Dx Coded Attending Type Code [...] 04/26/2011 JOSE CHILDERS APRN 477.9 RHINITIS 04/26/2011 OJSE CHILDERS APRN 487.1 INFLUENZA WITH OTHER RESPIRATORY [...] UNSPECIFIED ASTHMA WITH (ACUTE) EXACERBA 09/22/2016 JOSE CUMMINGS DO Ot L98.9 DISORDER OF THE SKIN AND SUBCUTANEOUS TI 09/22/2016 JOSE CUMMINGS DO Ot Z01.818 ENCOUNTER FOR OTHER PREPROCEDURAL EXAMIN 09/23/2016 JOSE CUMMINGS DO Ot 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, I 09/23/2016 JOSE CUMMINGS DO Ot F17.210 NICOTINE DEPENDENCE, CIGARETTES, UNCOMPL 09/23/2016 JOSE CUMMINGS DO Ot 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 09/23/2016 JOSE CUMMINGS DO Ot J45.909 UNSPECIFIED ASTHMA, UNCOMPLICATED 09/23/2016 JOSE CUMMINGS DO Ot L98.9 DISORDER OF THE SKIN AND SUBCUTANEOUS TI 11/20/2016 Brokob, Diana W 172.7 MALIGNANT MELANOMA OF SKIN OF LOWER LIMB, INCLUDING HIP 11/20/2016 Brokob, Diana A 338.18 OTHER ACUTE POSTOPERATIVE PAIN 11/20/2016 Brokob, Diana W 729.5 PAIN IN LIMB 11/20/2016 Brokob, Diana W 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, INCLUDING HIP 11/20/2016 Brokob, Diana A G89.18 OTHER ACUTE POSTPROCEDURAL PAIN 11/20/2016 Brokob Diana W M79.662 PAIN IN LEFT LOWER LEG 12/23/2016 Brokob, Diana W 041.11 METHICILLIN SUSCEPTIBLE STAPHYLOCOCCUS AUREUS INFECTION IN CONDITIONS CLASSIFIED ELSEWHERE AND OF UNSPECIFIED SITE 12/23/2016 Brokob, Diana W 041.7 PSEUDOMONAS INFECTION IN CONDITIONS CLASSIFIED ELSEWHERE AND OF UNSPECIFIED SITE 12/23/2016 Brokob, Diana A 998.59 OTHER POSTOPERATIVE INFECTION 12/23/2016 Brokob, Diana W B95.61 METHICILLIN SUSCEP STAPH INFCT CAUSING DIS CLASSD ELSWHR 12/23/2016 Brokob, Diana W B96.5 PSEUDOMONAS (MALLEI) CAUSING DISEASES CLASSD ELSWHR 12/23/2016 Brokob, Diana A T81.4XXA INFECTION FOLLOWING A PROCEDURE, INITIAL ENCOUNTER 01/27/2017 ANNETTE BIALEY, COLBY Moore Ot 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, I 01/27/2017 ANNETTE BAILEY, COLBY Moore Ot I87.332 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 01/27/2017 ANNETTE BAILEY, COLBY Moore Ot L03.116 CELLULITIS OF LEFT LOWER LIMB 01/27/2017 COLBY BRYANT MD, Ot L97.222 NON-PRESSURE CHRONIC ULCER OF LEFT CALF 01/27/2017 COLBY BRYANT MD, Ot S81.802A UNSPECIFIED OPEN WOUND, LEFT LOWER LEG, 02/17/2017 AYAKA REID MD Ot F17.210 NICOTINE DEPENDENCE, CIGARETTES, UNCOMPL 02/17/2017 AYAKA REID MD, Ot R10.11 RIGHT UPPER QUADRANT PAIN 02/17/2017 AYAKA REID MD, Ot Z08 ENCNTR FOR FOLLOW-UP EXAM AFTER TRTMT FO 02/17/2017 AYAKA REID MD, Ot Z80.0 FAMILY HISTORY OF MALIGNANT NEOPLASM OF 02/17/2017 AYAKA REID MD, Ot Z80.1 FAMILY HISTORY OF MALIG NEOPLASM OF TRAC 02/17/2017 AYAKA REID MD, Ot Z80.3 FAMILY HISTORY OF MALIGNANT NEOPLASM OF 02/17/2017 AYAKA REID MD, Ot Z85.820 PERSONAL HISTORY OF MALIGNANT MELANOMA O 02/24/2017 COLBY BRYANT MD, Ot 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, I 02/24/2017 COLBY BRYANT MD, Ot I87.332 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 02/24/2017 COLBY BRYANT MD, Ot L97.222 NON-PRESSURE CHRONIC ULCER OF LEFT CALF 02/24/2017 COLBY BRYANT MD, Ot S81.802A UNSPECIFIED OPEN WOUND, LEFT LOWER LEG, 03/09/2017 COLBY BRYANT MD, Ot 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, I 03/09/2017 COLBY BRYANT MD, Ot I87.332 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 03/09/2017 COLBY BRYANT MD Ot L97.222 NON-PRESSURE CHRONIC ULCER OF LEFT CALF 03/09/2017 COLBY BRYATN MD, Ot S81.802A UNSPECIFIED OPEN WOUND, LEFT LOWER LEG, 03/14/2017 COLBY BRYANT MD, Ot 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, I 03/14/2017 COLBY BRYANT MD, Ot I87.332 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 03/14/2017 COLBY BRYANT MD, Ot L03.116 CELLULITIS OF LEFT LOWER LIMB 03/14/2017 COLBY BRYANT MD, Ot L97.222 NON-PRESSURE CHRONIC ULCER OF LEFT CALF 03/14/2017 COLBY BRYANT MD, Ot S81.802A UNSPECIFIED OPEN WOUND, LEFT LOWER LEG, 03/14/2017 COLBY BRYANT MD, Ot 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, I 03/14/2017 COLBY BRYANT MD, Ot I87.332 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 03/14/2017 COLBY BRYANT MD, Ot L03.116 CELLULITIS OF LEFT LOWER LIMB 03/14/2017 COLBY BRYANT MD, Ot L97.222 NON-PRESSURE CHRONIC ULCER OF LEFT CALF 03/14/2017 COLBY BRYANT MD, Ot S81.802A UNSPECIFIED OPEN WOUND, LEFT LOWER LEG, 03/14/2017 COLBY BRYANT MD, Ot 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, I 03/14/2017 COLBY BRYANT MD, Ot I87.332 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 03/14/2017 COLBY BRYANT MD, Ot L97.222 NON-PRESSURE CHRONIC ULCER OF LEFT CALF 03/14/2017 COLBY BRYANT MD, Ot S81.802A UNSPECIFIED OPEN WOUND, LEFT LOWER LEG, 03/14/2017 COLBY BRYANT MD, Ot 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, I 03/14/2017 COLBY BRYANT MD, Ot I87.332 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 03/14/2017 COLBY BRYANT MD, Ot L97.222 NON-PRESSURE CHRONIC ULCER OF LEFT CALF 03/14/2017 COLBY BRYANT MD, Ot S81.802A UNSPECIFIED OPEN WOUND, LEFT LOWER LEG, 03/14/2017 AYAKA REID MD Ot F17.210 NICOTINE DEPENDENCE, CIGARETTES, UNCOMPL 03/14/2017 AYAKA REID MD Ot R10.11 RIGHT UPPER QUADRANT PAIN 03/14/2017 AYAKA REID MD Ot Z08 ENCNTR FOR FOLLOW-UP EXAM AFTER TRTMT FO 03/14/2017 AYAKA REID MD Ot Z80.0 FAMILY HISTORY OF MALIGNANT NEOPLASM OF 03/14/2017 AYAKA REID MD, Ot Z80.1 FAMILY HISTORY OF MALIG NEOPLASM OF TRAC 03/14/2017 AYAKA REID MD, Ot Z80.3 FAMILY HISTORY OF MALIGNANT NEOPLASM OF 03/14/2017 AYAKA REID MD, Ot Z85.820 PERSONAL HISTORY OF MALIGNANT MELANOMA O 03/14/2017 COLBY BRYANT MD, Ot 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, I 03/14/2017 COLBY BRYANT MD, Ot I87.332 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 03/14/2017 COLBY BRYANT MD, Ot L97.222 NON-PRESSURE CHRONIC ULCER OF LEFT CALF 03/14/2017 COLBY BRYANT MD, Ot S81.802A UNSPECIFIED OPEN WOUND, LEFT LOWER LEG, 03/14/2017 COLBY BRYANT MD, Ot 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, I 03/14/2017 COLBY BRYANT MD, Ot I87.332 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 03/14/2017 COLBY BRYANT MD, Ot L97.222 NON-PRESSURE CHRONIC ULCER OF LEFT CALF 03/14/2017 COLBY BRYANT MD, Ot S81.802A UNSPECIFIED OPEN WOUND, LEFT LOWER LEG, 03/14/2017 COLBY BRYANT MD, Ot 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, I 03/14/2017 COLBY BRYANT MD, Ot I87.332 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 03/14/2017 COLBY BRYANT MD, Ot L97.222 NON-PRESSURE CHRONIC ULCER OF LEFT CALF 03/14/2017 COLBY BRYANT MD, Ot S81.802A UNSPECIFIED OPEN WOUND, LEFT LOWER LEG, 03/15/2017 COLBY BRYANT MD, Ot 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, I 03/15/2017 COLBY BRYANT MD, Ot I87.332 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 03/15/2017 COLBY BRYANT MD Ot L03.116 CELLULITIS OF LEFT LOWER LIMB 03/15/2017 COLBY BRYANT MD, Ot L97.222 NON-PRESSURE CHRONIC ULCER OF LEFT CALF 03/15/2017 COLBY BRYANT MD, Ot S81.802A UNSPECIFIED OPEN WOUND, LEFT LOWER LEG, 03/17/2017 COLBY BRYANT MD, Ot 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, I 03/17/2017 COLBY BRYANT MD, Ot I87.332 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 03/17/2017 COLBY BRYANT MD, Ot L97.222 NON-PRESSURE CHRONIC ULCER OF LEFT CALF 03/17/2017 COLBY BRYANT MD, Ot S81.802A UNSPECIFIED OPEN WOUND, LEFT LOWER LEG, 04/04/2017 COLBY BRYANT MD, Ot 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, I 04/04/2017 COLBY BRYANT MD, Ot I87.332 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 04/04/2017 COLBY BRYANT MD, Ot L97.222 NON-PRESSURE CHRONIC ULCER OF LEFT CALF 04/04/2017 COLBY BRYANT MD, Ot S81.802A UNSPECIFIED OPEN WOUND, LEFT LOWER LEG, 05/17/2017 AYAKA REID MD Ot F17.210 NICOTINE DEPENDENCE, CIGARETTES, UNCOMPL 05/17/2017 AYAKA REID MD Ot R10.11 RIGHT UPPER QUADRANT PAIN 05/17/2017 AYAKA REID MD, Ot Z08 ENCNTR FOR FOLLOW-UP EXAM AFTER TRTMT FO 05/17/2017 AYAKA REID MD, Ot Z80.0 FAMILY HISTORY OF MALIGNANT NEOPLASM OF 05/17/2017 AYAKA REID MD, Ot Z80.1 FAMILY HISTORY OF MALIG NEOPLASM OF TRAC 05/17/2017 AYAKA REID MD, Ot Z80.3 FAMILY HISTORY OF MALIGNANT NEOPLASM OF 05/17/2017 AYAKA REID MD, Ot Z85.820 PERSONAL HISTORY OF MALIGNANT MELANOMA O 05/18/2017 JOSE CHILDERS Ot J45.901 UNSPECIFIED ASTHMA WITH (ACUTE) EXACERBA 05/18/2017 COLBY BRYANT MD, Ot 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, I 05/18/2017 COLBY BRYANT MD, Ot I87.332 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 05/18/2017 COLBY BRYANT MD Ot L03.116 CELLULITIS OF LEFT LOWER LIMB 05/18/2017 COLBY BRYANT MD, Ot L97.222 NON-PRESSURE CHRONIC ULCER OF LEFT CALF 05/18/2017 COLBY BRYANT MD, Ot S81.802A UNSPECIFIED OPEN WOUND, LEFT LOWER LEG, 05/18/2017 COLBY BRYANT MD, Ot 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, I 05/18/2017 COLBY BRYANT MD, Ot I87.332 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 05/18/2017 COLBY BRYANT MD, Ot L03.116 CELLULITIS OF LEFT LOWER LIMB 05/18/2017 COLBY BRYANT MD, Ot L97.222 NON-PRESSURE CHRONIC ULCER OF LEFT CALF 05/18/2017 COLBY BRYANT MD, Ot S81.802A UNSPECIFIED OPEN WOUND, LEFT LOWER LEG, 05/18/2017 COLBY BRYANT MD, Ot 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, I 05/18/2017 COLBY BRYANT MD, Ot I87.332 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 05/18/2017 COLBY BRYANT MD, Ot L97.222 NON-PRESSURE CHRONIC ULCER OF LEFT CALF 05/18/2017 COLBY BRYANT MD, Ot S81.802A UNSPECIFIED OPEN WOUND, LEFT LOWER LEG, 05/18/2017 COLBY BRYANT MD, Ot 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, I 05/18/2017 COLBY BRYANT MD, Ot I87.332 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 05/18/2017 COLBY BRYANT MD, Ot L97.222 NON-PRESSURE CHRONIC ULCER OF LEFT CALF 05/18/2017 COLBY BRYANT MD, Ot S81.802A UNSPECIFIED OPEN WOUND, LEFT LOWER LEG, 05/18/2017 COLBY BRYANT MD, Ot 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, I 05/18/2017 COLBY BRYANT MD, Ot I87.332 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 05/18/2017 COLBY BRYANT MD, Ot L97.222 NON-PRESSURE CHRONIC ULCER OF LEFT CALF 05/18/2017 COLBY BRYANT MD, Ot S81.802A UNSPECIFIED OPEN WOUND, LEFT LOWER LEG, 05/18/2017 COLBY BRYANT MD, Ot 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, I 05/18/2017 COLBY BRYANT MD, Ot I87.332 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 05/18/2017 COLBY BRYANT MD, Ot L97.222 NON-PRESSURE CHRONIC ULCER OF LEFT CALF 05/18/2017 COLBY BRYANT MD, Ot S81.802A UNSPECIFIED OPEN WOUND, LEFT LOWER LEG, 05/18/2017 COLBY BRYANT MD, Ot 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, I 05/18/2017 COLBY BRYANT MD, Ot I87.332 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 05/18/2017 COLBY BRYANT MD Ot L97.222 NON-PRESSURE CHRONIC ULCER OF LEFT CALF 05/18/2017 COLBY BRYANT MD, Ot S81.802A UNSPECIFIED OPEN WOUND, LEFT LOWER LEG, 05/18/2017 COLBY BRYANT MD, Ot 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, I 05/18/2017 COLBY BRYANT MD, Ot I87.332 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 05/18/2017 COLBY BRYANT MD Ot L97.222 NON-PRESSURE CHRONIC ULCER OF LEFT CALF 05/18/2017 COLBY BRYANT MD Ot S81.802A UNSPECIFIED OPEN WOUND, LEFT LOWER LEG, 05/18/2017 GARNETTRANDY Raya LOR Ot 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, I 05/18/2017 AYAKA REID MD Ot F17.210 NICOTINE DEPENDENCE, CIGARETTES, UNCOMPL 05/18/2017 AYAKA REID MD Ot R10.11 RIGHT UPPER QUADRANT PAIN 05/18/2017 AYAKA REID MD Ot Z08 ENCNTR FOR FOLLOW-UP EXAM AFTER TRTMT FO 05/18/2017 AYAKA REID MD Ot Z80.0 FAMILY HISTORY OF MALIGNANT NEOPLASM OF 05/18/2017 AYAKA REID MD Ot Z80.1 FAMILY HISTORY OF MALIG NEOPLASM OF TRAC 05/18/2017 AYAKA REID MD Ot Z80.3 FAMILY HISTORY OF MALIGNANT NEOPLASM OF 05/18/2017 AYAKA REID MD Ot Z85.820 PERSONAL HISTORY OF MALIGNANT MELANOMA O 05/18/2017 AYAKA REID MD Ot F17.210 NICOTINE DEPENDENCE, CIGARETTES, UNCOMPL 05/18/2017 AYAKA REID MD Ot R10.11 RIGHT UPPER QUADRANT PAIN 05/18/2017 AYAKA REID MD Ot Z08 ENCNTR FOR FOLLOW-UP EXAM AFTER TRTMT FO 05/18/2017 AYAKA REID MD Ot Z80.0 FAMILY HISTORY OF MALIGNANT NEOPLASM OF 05/18/2017 AYAKA REID MD Ot Z80.1 FAMILY HISTORY OF MALIG NEOPLASM OF TRAC 05/18/2017 AYAKA REID MD Ot Z80.3 FAMILY HISTORY OF MALIGNANT NEOPLASM OF 05/18/2017 AYAKA REID MD Ot Z85.820 PERSONAL HISTORY OF MALIGNANT MELANOMA O 05/18/2017 COLBY BRYANT MD Ot 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, I 05/18/2017 COLBY BRYANT MD Ot I87.332 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 05/18/2017 COLBY BRYANT MD Ot L03.116 CELLULITIS OF LEFT LOWER LIMB 05/18/2017 COLBY BRYANT MD, Ot L97.222 NON-PRESSURE CHRONIC ULCER OF LEFT CALF 05/18/2017 COLBY BRYANT MD, Ot S81.802A UNSPECIFIED OPEN WOUND, LEFT LOWER LEG, 05/18/2017 COLBY BRYANT MD, Ot 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, I 05/18/2017 COLBY BRYANT MD, Ot I87.332 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 05/18/2017 COLBY BRYANT MD Ot L03.116 CELLULITIS OF LEFT LOWER LIMB 05/18/2017 COLBY BRYANT MD, Ot L97.222 NON-PRESSURE CHRONIC ULCER OF LEFT CALF 05/18/2017 COLBY BRYANT MD, Ot S81.802A UNSPECIFIED OPEN WOUND, LEFT LOWER LEG, 05/18/2017 COLBY BRYANT MD, Ot 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, I 05/18/2017 COLBY BRYANT MD, Ot I87.332 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 05/18/2017 COLBY BRYANT MD, Ot L03.116 CELLULITIS OF LEFT LOWER LIMB 05/18/2017 COLBY BRYANT MD, Ot L97.222 NON-PRESSURE CHRONIC ULCER OF LEFT CALF 05/18/2017 COLBY BRYANT MD, Ot S81.802A UNSPECIFIED OPEN WOUND, LEFT LOWER LEG, 05/18/2017 COLBY BRYANT MD, Ot 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, I 05/18/2017 COLBY BRYANT MD, Ot I87.332 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 05/18/2017 COLBY BRYANT MD, Ot L97.222 NON-PRESSURE CHRONIC ULCER OF LEFT CALF 05/18/2017 COLBY BRYANT MD, Ot S81.802A UNSPECIFIED OPEN WOUND, LEFT LOWER LEG, 05/18/2017 COLBY BRYANT MD, Ot 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, I 05/18/2017 COLBY BRYANT MD, Ot I87.332 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 05/18/2017 COLBY BRYANT MD, Ot L97.222 NON-PRESSURE CHRONIC ULCER OF LEFT CALF 05/18/2017 COLBY BRYANT MD, Ot S81.802A UNSPECIFIED OPEN WOUND, LEFT LOWER LEG, 05/18/2017 COLBY BRYANT MD, Ot 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, I 05/18/2017 COLBY BRYANT MD, Ot I87.332 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 05/18/2017 COLBY BRYANT MD, Ot L97.222 NON-PRESSURE CHRONIC ULCER OF LEFT CALF 05/18/2017 COLBY BRYANT MD, Ot S81.802A UNSPECIFIED OPEN WOUND, LEFT LOWER LEG, 05/18/2017 COLBY BRYANT MD, Ot 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, I 05/18/2017 COLBY BRYANT MD, Ot I87.332 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 05/18/2017 COLBY BRYANT MD, Ot L97.222 NON-PRESSURE CHRONIC ULCER OF LEFT CALF 05/18/2017 COLBY BRYANT MD, Ot S81.802A UNSPECIFIED OPEN WOUND, LEFT LOWER LEG, 05/18/2017 COLBY BRYANT MD, Ot 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, I 05/18/2017 COLBY BRYANT MD, Ot I87.332 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 05/18/2017 COLBY BRYANT MD, Ot L97.222 NON-PRESSURE CHRONIC ULCER OF LEFT CALF 05/18/2017 COLBY BRYANT MD, Ot S81.802A UNSPECIFIED OPEN WOUND, LEFT LOWER LEG, 05/18/2017 COLBY BRYANT MD, Ot 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, I 05/18/2017 COLBY BRYANT MD, Ot I87.332 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 05/18/2017 COLBY BRYANT MD Ot L97.222 NON-PRESSURE CHRONIC ULCER OF LEFT CALF 05/18/2017 COLBY BYRANT MD, Ot S81.802A UNSPECIFIED OPEN WOUND, LEFT LOWER LEG, 05/18/2017 RANDY GARNETT Ot 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, I 05/19/2017 COLBY BRYANT MD, Ot 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, I 05/19/2017 COLBY BRYANT MD, Ot I87.332 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 05/19/2017 COLBY BRYANT MD Ot L97.222 NON-PRESSURE CHRONIC ULCER OF LEFT CALF 05/19/2017 COLBY BRYANT MD, Ot S81.802A UNSPECIFIED OPEN WOUND, LEFT LOWER LEG, 05/19/2017 COLBY BRYANT MD, Ot 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, I 05/19/2017 COLBY BRYANT MD, Ot I87.332 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 05/19/2017 COLBY BRYANT MD, Ot L97.222 NON-PRESSURE CHRONIC ULCER OF LEFT CALF 05/19/2017 COLBY BRYANT MD, Ot S81.802A UNSPECIFIED OPEN WOUND, LEFT LOWER LEG, 05/25/2017 COLBY BRYANT MD, Ot 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, I 05/25/2017 COLBY BRYANT MD, Ot I87.332 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 05/25/2017 COLBY BRYANT MD Ot L03.116 CELLULITIS OF LEFT LOWER LIMB 05/25/2017 COLBY BRYANT MD, Ot L97.222 NON-PRESSURE CHRONIC ULCER OF LEFT CALF 05/25/2017 COLBY BRYANT MD, Ot S81.802A UNSPECIFIED OPEN WOUND, LEFT LOWER LEG, 05/25/2017 COLBY BRYANT MD, Ot 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, I 05/25/2017 COLBY BRYANT MD, Ot I87.332 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 05/25/2017 COLBY BRYANT MD, Ot L03.116 CELLULITIS OF LEFT LOWER LIMB 05/25/2017 COLBY BRYANT MD, Ot L97.222 NON-PRESSURE CHRONIC ULCER OF LEFT CALF 05/25/2017 COLBY BRYANT MD, Ot S81.802A UNSPECIFIED OPEN WOUND, LEFT LOWER LEG, 05/25/2017 COLBY BRYANT MD, Ot 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, I 05/25/2017 COLBY BRYANT MD, Ot I87.332 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 05/25/2017 COLBY BRYANT MD, Ot L97.222 NON-PRESSURE CHRONIC ULCER OF LEFT CALF 05/25/2017 COLBY BRYANT MD, Ot S81.802A UNSPECIFIED OPEN WOUND, LEFT LOWER LEG, 05/25/2017 COLBY BRYANT MD, Ot 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, I 05/25/2017 COLBY BRYANT MD, Ot I87.332 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 05/25/2017 COLBY BRYANT MD, Ot L97.222 NON-PRESSURE CHRONIC ULCER OF LEFT CALF 05/25/2017 COLBY BRYANT MD, Ot S81.802A UNSPECIFIED OPEN WOUND, LEFT LOWER LEG, 05/25/2017 COLBY BRYANT MD, Ot 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, I 05/25/2017 COLBY BRYANT MD, Ot I87.332 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 05/25/2017 COLBY BRYANT MD Ot L97.222 NON-PRESSURE CHRONIC ULCER OF LEFT CALF 05/25/2017 COLBY BRYANT MD, Ot S81.802A UNSPECIFIED OPEN WOUND, LEFT LOWER LEG, 05/25/2017 COLBY BRYANT MD, Ot 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, I 05/25/2017 COLBY BRYANT MD, Ot I87.332 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 05/25/2017 COLBY BRYANT MD, Ot L97.222 NON-PRESSURE CHRONIC ULCER OF LEFT CALF 05/25/2017 COLBY BRYANT MD, Ot S81.802A UNSPECIFIED OPEN WOUND, LEFT LOWER LEG, 05/25/2017 COLBY BRAYNT MD, Ot 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, I 05/25/2017 COLBY BRYANT MD, Ot I87.332 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 05/25/2017 COLBY BRYANT MD, Ot L97.222 NON-PRESSURE CHRONIC ULCER OF LEFT CALF 05/25/2017 COLBY BRYANT MD, Ot S81.802A UNSPECIFIED OPEN WOUND, LEFT LOWER LEG, 05/25/2017 COLBY BRYANT MD, Ot 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, I 05/25/2017 COLBY BRYANT MD, Ot I87.332 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 05/25/2017 COLBY BRYANT MD, Ot L97.222 NON-PRESSURE CHRONIC ULCER OF LEFT CALF 05/25/2017 COLBY BRYANT MD, Ot S81.802A UNSPECIFIED OPEN WOUND, LEFT LOWER LEG, 05/25/2017 RANDY GARNETT Ot 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, I 06/16/2017 AYAKA REID MD Ot F17.210 NICOTINE DEPENDENCE, CIGARETTES, UNCOMPL 06/16/2017 AYAKA REID MD Ot R10.11 RIGHT UPPER QUADRANT PAIN 06/16/2017 AYAKA REID MD Ot Z08 ENCNTR FOR FOLLOW-UP EXAM AFTER TRTMT FO 06/16/2017 AYAKA REID MD Ot Z80.0 FAMILY HISTORY OF MALIGNANT NEOPLASM OF 06/16/2017 AYAAK REID MD Ot Z80.1 FAMILY HISTORY OF MALIG NEOPLASM OF TRAC 06/16/2017 AYAKA REID MD Ot Z80.3 FAMILY HISTORY OF MALIGNANT NEOPLASM OF 06/16/2017 AYAKA REID MD Ot Z85.820 PERSONAL HISTORY OF MALIGNANT MELANOMA O 06/23/2017 AYAKA REID MD Ot F17.210 NICOTINE DEPENDENCE, CIGARETTES, UNCOMPL 06/23/2017 AYAKA REID MD Ot R10.11 RIGHT UPPER QUADRANT PAIN 06/23/2017 AYAKA REID MD Ot Z08 ENCNTR FOR FOLLOW-UP EXAM AFTER TRTMT FO 06/23/2017 AYAKA REID MD, Ot Z80.0 FAMILY HISTORY OF MALIGNANT NEOPLASM OF 06/23/2017 AYAKA REID MD Ot Z80.1 FAMILY HISTORY OF MALIG NEOPLASM OF TRAC 06/23/2017 AYAKA REID MD, Ot Z80.3 FAMILY HISTORY OF MALIGNANT NEOPLASM OF 06/23/2017 AYAKA REID MD Ot Z85.820 PERSONAL HISTORY OF MALIGNANT MELANOMA O 08/04/2017 JOSE CUMMINGS DO Ot K21.9 GASTRO-ESOPHAGEAL REFLUX DISEASE WITHOUT Procedures There is no data. Results Test Result Range Methicillin resistant Staphylococcus aureus (MRSA) screening culture - 11:25 Methicillin resistant Staphylococcus aureus (MRSA) screening culture NEG NRG BMP - 11/20/16 20:55 Anion Gap 15 6-14 BUN 15 mg/dL 5-25 Calcium 9.4 mg/dL 8.3-10.4 Chloride 100 mmol/L 95-114 CO2 25 mEq/L 22-33 Creat 0.81 mg/dL 0.50-1.50 eGFR 105 mL/min/1.73m2 >59 Glucose 94 mg/dL 70-110 Osmo 282 280-295 Potassium 3.7 mmol/L 3.5-5.3 Sodium 136 mmol/L 134-148 Blood Culture - 11/20/16 20:55 PRELIM CULTURE RESULTS Blood Culture Negative, No Growth Day 1 FINAL CULTURE RESULTS Blood Culture Negative, No Growth Day 5 MEDIA PLATED Setup at 21:21 on [id number] Culture Media Position B36 CULTURE SOURCE drawn via IV start @ Left arm Blood Culture - 11/20/16 21:00 PRELIM CULTURE RESULTS Blood Culture Negative, No Growth Day 1 FINAL CULTURE RESULTS Blood Culture Negative, No Growth Day 5 MEDIA PLATED Setup at 21:21 on [id number] Culture Media Position B30 CULTURE SOURCE Drawn @ Right Arm Other Culture - 12/23/16 17:16 PRELIM CULTURE RESULTS Abundant coag pos [id number] gram neg [id number] / ID to follow MEDIA PLATED Setup at 17:34 on 12/23/2016 Sensi - 12/23/16 17:16 FINAL CULTURE RESULTS Staphylococcus aureus (Isolate 1) Ampicillin/Sulbactam <=8/4 Ampicillin >8 Amoxicillin/K Clavulanate <=4/2 Ceftriaxone <=8 Clindamycin <=0.5 Cefoxitin Screen <=4 Ciprofloxacin <=1 Daptomycin <=0.5 Erythromycin <=0.5 Nitrofurantoin <=32 Gentamicin <=4 Gentamicin Synergy Screen N/R Inducible Clindamycin N/R Levofloxacin <=1 Linezolid 2 Moxifloxacin <=0.5 Oxacillin <=0.25 Penicillin >8 Rifampin <=1 Streptomycin Synergy N/R Synercid <=0.5 Trimethoprim/ Sulfamethoxazole <=0.5/9.5 Tetracycline <=4 Vancomycin 2 Sensi - 12/23/16 17:16 Ampicillin/Sulbactam >16/8 Ampicillin >16 Amoxicillin/K Clavulanate >16/8 Ceftriaxone >32 Ciprofloxacin <=1 Nitrofurantoin >64 Gentamicin <=4 Levofloxacin <=2 Trimethoprim/ Sulfamethoxazole >2/38 Tetracycline >8 Amikacin <=16 Aztreonam <=8 Ceftazidime 4 Ceftazidime/K Clavulanate >2 Cephalothin >16 Cefotaxime 32 Cefotaxime/K Clavulanate >4 Cefoxitin >16 Cefazolin >16 Cefepime <=8 Cefuroxime >16 Ertapenem 4 Imipenem <=4 Meropenem <=4 Piperacillin/Tazobactam <=16 Piperacillin <=16 Tigecycline N/R Tobramycin <=4 FINAL CULTURE RESULTS Pseudomonas aeruginosa (Isolate 2) Other Culture - 01/20/17 17:30 PRELIM CULTURE RESULTS Abundant Gram Positive - MARYJO / ID to [id number] Gram Negative - No further workup MEDIA PLATED Setup at 17:43 01/20/2017 Sensi - 01/20/17 17:30 FINAL CULTURE RESULTS Staphylococcus aureus (Isolate 1) Ampicillin/Sulbactam <=8/4 Ampicillin >8 Amoxicillin/K Clavulanate <=4/2 Ceftriaxone <=8 Clindamycin <=0.5 Cefoxitin Screen <=4 Ciprofloxacin <=1 Daptomycin <=0.5 Erythromycin <=0.5 Nitrofurantoin <=32 Gentamicin <=4 Gentamicin Synergy Screen N/R Inducible Clindamycin N/R Levofloxacin <=1 Linezolid 2 Moxifloxacin <=0.5 Oxacillin <=0.25 Penicillin >8 Rifampin <=1 Streptomycin Synergy N/R Synercid <=0.5 Trimethoprim/ Sulfamethoxazole <=0.5/9.5 Tetracycline <=4 Vancomycin 1 Bacteria identification in isolate by anaerobe culture - 01/21/17 13:12 Bacteria identification in isolate by anaerobe culture NOANA [facility] Gram stain microscopy - 01/21/17 13:12 GRAM STAIN RESULT NO BACTERIA OBSERVED [facility] Bacteria identification in wound by culture - 01/21/17 13:12 Bacteria identification in wound by culture [id number] [facility] FREE TEXT EXTERNAL UNBLE TO RUN SENSITIVITY ON VITEK NR QUANTITY OF GROWTH Scant Growth [facility] MRSA AGAR Screening test for MRSA is NEGATIVE (Final to follow) [facility] FREE TEXT ENTRY 2 INSTRUMENT, SENT TO [facility] 01/26/17 [facility] Bacterial susceptibility panel - 01/21/17 13:12 Oxacillin susceptibility test by minimum inhibitory concentration 0.5 NRG Gentamicin susceptibility test by minimum inhibitory concentration < = NRG Clindamycin susceptibility test by minimum inhibitory concentration <= NRG Erythromycin susceptibility test by minimum inhibitory concentration <= NRG Trimethoprim/sulfamethoxazole susceptibility test by minimum inhibitoryconcentration S NRG Vancomycin susceptibility test by minimum inhibitory concentration 1 NRG Levofloxacin susceptibility test by minimum inhibitory concentration 0.25 NRG Rifampin susceptibility test by minimum inhibitory concentration <= NRG Tetracycline susceptibility test by minimum inhibitory concentration <= NRG BMP - 06/30/17 11:26 Anion Gap 14 6-14 BUN 12 mg/dL 5-25 Calcium 9.5 mg/dL 8.3-10.4 Chloride 103 mmol/L 95-114 CO2 26 mEq/L 22-33 Creat 0.78 mg/dL 0.50-1.50 eGFR 110 mL/min/1.73m2 >59 Glucose 100 mg/dL 70-110 Osmo 287 280-295 Potassium 4.0 mmol/L 3.5-5.3 Sodium 139 mmol/L 134-148 Surgical Pathology - 07/04/17 09:05 Surg Path Sent to [place] [facility] Encounters ACCT No. Visit Date/Time Discharge Status Pt. Type Provider Facility Loc./Unit Complaint [id number] 09/12/2013 17:03:00 09/12/2013 23:59:59 CLS Outpatient JOSE CHILDERS APRN [id number] 07/04/2017 00:00:00 07/04/2017 09:40:00 DIS Outpatient Jose Cummings [id number] 06/30/2017 11:04:00 06/30/2017 23:59:00 DIS Outpatient Jose Cummings [id number] 01/20/2017 17:42:00 01/20/2017 23:59:00 DIS Outpatient Ilene Ennis [id number] 12/23/2016 17:02:00 12/23/2016 18:35:00 [facility] [id number] 11/20/2016 20:33:00 11/20/2016 22:57:00 DIS Outpatient Rosina Diana [id number] 11/20/2016 20:46:56 Document Registration [id number] 11/24/2014 03:12:51 ACT Document Registration [id number] 01/20/2017 17:42:00 Document Registration [id number] 08/12/2017 09:38:00 08/12/2017 23:59:59 CLS Outpatient JOSE CUMMINGS DO [facility] CARD ABD PAIN,EPIGASTRIC [id number] 08/03/2017 06:46:00 08/03/2017 23:59:59 CLS Outpatient JOSE CUMMINGS DO [facility] RAD REFLUX [id number] 05/18/2017 16:22:00 05/18/2017 23:59:59 CLS Preadmit AYAKA REID MD [facility] ONC [id number] 05/18/2017 09:04:00 05/18/2017 23:59:59 CLS Outpatient AYAKA REID MD [facility] ONC [id number] 02/16/2017 12:26:00 05/17/2017 00:01:00 DIS Outpatient AYAKA REID MD [facility] ONC [id number] 05/09/2017 09:00:00 05/09/2017 23:59:59 CLS Outpatient RANDY GARNETT [facility] ONC [id number] 03/25/2017 08:28:00 03/25/2017 23:59:59 CLS Outpatient COLBY BRYANT MD [facility] WOUNDCARE [id number] 03/11/2017 08:22:00 03/11/2017 23:59:59 CLS Outpatient COLBY BRYANT MD [facility] WOUNDCARE [id number] 03/03/2017 13:36:00 03/03/2017 23:59:59 CLS Outpatient COLBY BRYANT MD [facility] WOUNDCARE [id number] 02/18/2017 08:24:00 02/18/2017 23:59:59 CLS Outpatient COLBY BRYANT MD [facility] WOUNDCARE [id number] 02/09/2017 10:03:00 02/09/2017 23:59:59 CLS Outpatient COLBY BRYANT MD [facility] WOUNDCARE [id number] 02/04/2017 08:23:00 02/04/2017 23:59:59 CLS Outpatient COLBY BRYANT MD [facility] WOUNDCARE [id number] 01/25/2017 15:31:00 01/25/2017 23:59:59 CLS Outpatient COLBY BRYANT MD [facility] WOUNDCARE [id number] 01/21/2017 12:07:00 01/21/2017 23:59:59 CLS Outpatient COLBY BRYANT MD [facility] WOUNDCARE [id number] 09/23/2016 11:12:00 09/23/2016 15:07:00 DIS Outpatient JOSE CUMMINGS DO [facility] SDC LESION LEFT LOWER EXTREMITY [id number] 09/22/2016 12:51:00 09/22/2016 14:35:00 DIS Outpatient JOSE CUMMINGS DO [facility] PREOP LESION LEFT LOWER EXTREMITY [id number] 05/26/2016 12:21:00 05/26/2016 23:59:59 CLS Outpatient JOSE CHILDERS [facility] RAD ASTHMA EXACERBATION [id number] 11/23/2014 18:06:00 11/23/2014 21:24:00 DIS Emergency BELEM SANDERS APRN [facility] ER GROIN PAIN
[2017-08-22 10:00] VITALS: BP 141/90
[2017-08-22] MEDS: LACTATED RINGERS 1,000 ML IV PRN ×2 (10:00→11:39)
[2017-08-22 10:23] LABS: BASOPHILS % (AUTO) 0 % (0-10); EOSINOPHILS # (AUTO) 0.1 10^3/uL (0.0-0.3); EOSINOPHILS % (AUTO) 2 % (0-10); HEMATOCRIT 41 % (40-54); HEMOGLOBIN 13.8 G/DL (13.3-17.7); LYMPHOCYTES # (AUTO) 1.9 X 10^3 (1.0-4.0); LYMPHOCYTES % (AUTO) 29 % (12-44); MEAN CORPUSCULAR HEMOGLOBIN 32 PG (25-34); MEAN CORPUSCULAR HGB CONC 34 G/DL (32-36); MEAN CORPUSCULAR VOLUME 95 FL (80-99); MEAN PLATELET VOLUME 9.6 FL (7.4-10.4); MONOCYTES # (AUTO) 0.6 X 10^3 (0.0-1.0); MONOCYTES % (AUTO) 9 % (0-12); NEUTROPHILS # (AUTO) 3.7 X 10^3 (1.8-7.8); NEUTROPHILS % (AUTO) 59 % (42-75); PLATELET COUNT 247 10^3/uL (130-400); RED BLOOD COUNT 4.29 10^6/uL (4.35-5.85); RED CELL DISTRIBUTION WIDTH 13.5 % (10.0-14.5); WHITE BLOOD COUNT 6.3 10^3/uL (4.3-11.0)
[2017-08-22] MEDS ORDERED: DEXAMETHASONE 10 MG/ML (DECADRON) 1 ML VIAL ONE (10:27)
[2017-08-22] MEDS ORDERED: SUCCINYLCHOLINE INJ 100 MG/5 ML SYR ONE ×2 (10:27→11:03)
[2017-08-22] MEDS ORDERED: ROCURONIUM 10 MG/ML 5 ML SYRINGE IV ONE ×2 (10:27→11:32)
[2017-08-22] MEDS ORDERED: LIDOCAINE 1% INJ 20 ML 20 ML VIAL ONE (10:27)
[2017-08-22] MEDS ORDERED: ONDANSETRON 4 MG/2 ML (SDV) Z0FRAN ONE (10:27)
[2017-08-22] MEDS ORDERED: BUPIVACAINE 0.5% 30 ML (SENSORCAINE) VIAL ONE (10:27)
[2017-08-22] MEDS ORDERED: proPOfol 200 MG/20 ML (DIPRIVAN) VIAL IV ONE ×2 (10:27→10:47)
[2017-08-22] MEDS ORDERED: fentaNYL INJECTION 100 MCG/2 ML AMP ONE ×2 (10:27→11:01)
[2017-08-22] MEDS ORDERED: MIDAZOLAM 2 MG/2 ML (VERSED) VIAL ONE (10:28)
[2017-08-22] MEDS ORDERED: ceFAZolin 2 GM IV Premixed 50 ML ONE (10:33)
--- NOTE | 2017-08-22 10:38 | Progress Note-Pre Operative ---
Pre-Operative Progress Note H&P Reviewed The H&P was reviewed, patient examined and no changes noted. Date Seen by Provider: Aug 22, 2017 Time Seen by Provider: 10:37 Date H&P Reviewed: Aug 22, 2017 Time H&P Reviewed: 10:38 Pre-Operative Diagnosis: biliary dyskinesia JOSE CUMMINGS DO Aug 22, 2017 10:38
[2017-08-22] MEDS ORDERED: SEVOFLURANE (ULTANE) 15 ML INHAL SOLN ONE ×2 (10:48→11:31)
[2017-08-22] MEDS ORDERED: ceFAZolin 2 GM IV Premixed 50 ML IV ONE (11:00)
[2017-08-22] MEDS ORDERED: GLYCOPYRROLATE 0.2 MG/ML (ROBINUL) 2 ML VIAL ONE (11:33)
[2017-08-22] MEDS ORDERED: NEOSTIGMINE 1 MG/ML 5 ML SYRINGE ONE (11:33)
--- NOTE | 2017-08-22 11:35 | Progress Note-Post Operative ---
Post-Operative Progess Note Surgeon (s)/Insurance Claims Supervisor (s) Surgeon JOSE CUMMINGS DO Insurance Claims Supervisor: Dr. Ramirez Pre-Operative Diagnosis biliary dyskinesia Post-Operative Diagnosis same Procedure & Operative Findings Date of Procedure 08/22/17 Procedure Performed/Findings lap agus c ioc Anesthesia Type general Estimated Blood Loss Estimated blood loss (mL): minimal Specimens/Packing Specimens Removed gallbladder JOSE CUMMINGS DO Aug 22, 2017 11:35
[2017-08-22] MEDS ORDERED: DOCU-143 PO (11:36)
[2017-08-22] MEDS ORDERED: ACHD5005 PO (11:36)
--- NOTE | 2017-08-22 11:37 | Discharge Inst-Simple/Standard ---
Discharge Inst-Standard Discharge Medications New, Converted or Re-Newed RX: RX on Chart Patient Instructions/Follow Up Plan of Care/Instructions/FU: 2 weeks Darci Activity as Tolerated: No Discharge Diet: Regular Diet Other Inst to Patient Follow up Appt: Make appointment for 2 weeks. Instructions: No lifting greater than 10 pounds. No strenuous activity. May shower in 24 hours, no tub bath or soaking. Use incentive spirometer at home as directed. No Smoking Skin/Wound Care: You have special glue over incision it will fall off on its own. Symptoms to Report: Appetite Changes, Extremity Discoloration, Numbness/Tingling, Swelling Increased , Bleeding Excessive, Eyesight Changes, Pain Increased, Urine Color Change, Constipation(Persistent), Fever over 101 degree F, Pain/Pressure in chest, Urinating Difficulty, Cough Up/Vomit Blood, Heart Beat Irreg/Pounding, Pain/ Pressure in jaw, Vaginal Bleeding Increase, Cramps in feet or legs, Lightheadedness, Pain/Pressure in shoulder, Diarrhea(Persistent), Memory Changes Suddenly, Questions/Concerns, Weight gain consecutive days, Dizziness/ Fainting, Nausea/Vomiting, Shortness of Breath, Weight gain over 2 pounds. If eyes or skin turn yellow notify physician. If questions or concerns contact your physician Or seek help at emergency department. JOSE CUMMINGS DO Aug 22, 2017 11:37
[2017-08-22] MEDS ORDERED: HYDROcodone/APAP 5 MG/325 MG (LORTAB) TAB PO PRN (11:45)
[2017-08-22] MEDS ORDERED: hydrALAZINE (APESOLINE) 20 MG/ML VIAL ONE (11:46)
[2017-08-22] MEDS ORDERED: HYDROmorphone 1 MG/ML (DILAUDID) 1 ML SYRINGE ONE (11:53)
[2017-08-22] MEDS: HYDROmorphone 1 MG/ML (DILAUDID) 1 ML SYRINGE IV PRN ×2 (11:55→12:05)
[2017-08-22] MEDS ORDERED: MEPERIDINE (DEMEROL) INJ 50 MG/ML IVP PRN (12:00)
[2017-08-22] MEDS ORDERED: ONDANSETRON 4 MG/2 ML (SDV) Z0FRAN IVP PRN (12:00)
[2017-08-22] MEDS ORDERED: fentaNYL INJECTION 100 MCG/2 ML AMP IVP PRN (12:00)
--- NOTE | 2017-08-22 12:04 | Diagnostic Imaging Report ---
INDICATION: Gallbladder disease. FINDINGS: Intraoperative cholangiogram demonstrates normal caliber of the intrahepatic and extrahepatic biliary ducts. No intrinsic or extrinsic filling defects are appreciated. There is free spill of contrast into the duodenum. There is no pathological extravasation of contrast. IMPRESSION: Unremarkable intraoperative cholangiogram status post cholecystectomy. Please correlate with the formal operative report. Dictated by: Dictated on workstation # [id number]
[2017-08-22 12:40] VITALS: BP 145/98
[2017-08-22 13:10] VITALS: BP 146/101
[2017-08-22 13:40] VITALS: BP_SYST 143; BP_SYST 146; BP_DIAS 101; BP_DIAS 95
--- NOTE | 2017-08-22 14:19 | Anesthesia-General Post-Op ---
General Patient Condition Mental Status/LOC: Same as Preop Cardiovascular: Satisfactory Nausea/Vomiting: Absent Respiratory: Satisfactory Pain: Controlled Complications: Absent Post Op Complications Complications None Follow Up Care/Instructions Patient Instructions None needed. Anesthesia/Patient Condition Patient Condition Patient is doing well, no complaints, stable vital signs, no apparent adverse anesthesia problems. No complications reported per nursing. IBRAHIMA ESPINOZA CRNA Aug 22, 2017 14:19
--- NOTE | 2017-08-22 23:39 | OPERATIVE REPORT ---
DATE OF SERVICE: 08/22/2017 PREOPERATIVE DIAGNOSIS: Biliary dyskinesia. POSTOPERATIVE DIAGNOSIS: Biliary dyskinesia. PROCEDURE: Laparoscopic cholecystectomy with intraoperative cholangiogram. SURGEON: Jose Bejarano DO. HOG WORKER: Dr. Ramirez, assisted in retraction, dissection and closure. ANESTHESIA: General. ESTIMATED BLOOD LOSS: Minimal. COMPLICATIONS: None. INDICATIONS: The patient is a 42-year-old male who has been having epigastric abdominal pain. Workup revealed findings consistent with biliary dyskinesia. He was explained risks and benefits of procedure and wished to proceed with procedure. Consent was signed in the chart. DESCRIPTION OF PROCEDURE: The patient was taken to the operating suite, was prepped and draped in sterile fashion. Surgical pause was performed. Incision was made just above the umbilicus. Cautery dissection was used to take down to the fascia, which was then scored, grasped and elevated and the abdomen was then entered. A 0 Vicryl was placed in a beaubq-xk-phafu fashion for closure at the end of the case. The balloon trocar was inserted through the fascial defect and pneumoperitoneum was achieved. Under direct visualization of the laparoscope, a 5 mm trocar was placed in the subxiphoid region and two 5 mm trocars were placed in the right upper quadrant. Gallbladder was grasped and elevated. The cystic duct and cystic artery were dissected out. Clips were placed on the proximal and distal portion of the cystic artery, and a clip was placed on distal portion of the cystic duct. The duct was then partially transected. Rule out questionable liver disease. The Arrow catheter was inserted and cholangiogram was performed. There were no filling defects. Contrast made its way into the duodenum. The Arrow catheter was then removed. Clips were placed on the proximal portion of the cystic duct and the duct and artery were then completely transected. At his posterior branch of the cystic artery, the clips had to be placed on and this was then transected. Hook cautery was used to dissect the gallbladder from the gallbladder fossa achieving hemostasis. A small hole was made in the gallbladder. It was drained a little bit of bile, which was irrigated and suctioned as well. Gallbladder was placed in an Endobag and removed through the 12 mm trocar site. The abdomen was reinspected. Hemostasis was achieved. The abdomen was irrigated and suctioned. The abdomen was then desufflated, the trocars were removed. The 0 Vicryl was placed in a gggzse-ma-eewpb fashion was then tied closing the 12 mm fascial defect. The skin was then closed using 4-0 Monocryl in a subcuticular fashion. The area was then washed and dried and SwiftSet was placed over the incisions. The patient tolerated the procedure well without any complications and taken to recovery room in stable condition. Job ID: [id number] DocumentID: [id number] Dictated Date: 08/22/2017 14:46:34 Coin Machine Service Repairer Date: 08/22/2017 23:39:04 Dictated By: JOSE BEJARANO DO
== END 2017-08-22 13:45 | disposition home or self-care (01) ==
LOC: SDC 09:39
PROVIDERS: ATTEND Surgery
DX: K80.10 Calculus of gallbladder with chronic cholecystitis without obstruction (principal); J45.909 Unspecified asthma, uncomplicated; F17.210 Nicotine dependence, cigarettes, uncomplicated; Z79.899 Other long term (current) drug therapy
CPT/HCPCS: 36415; 85025; 87081; 94664

== ENCOUNTER → 2018-01-12 | Outpatient (CLI) | payer MEDICAID, OTHER ==
[~2018-01-12] MED LIST changes: +HYDR-4226 PO; -HYDR-757 PO
== END ==
LOC: ONC 08:37
PROVIDERS: ATTEND Internal Medicine Hematology & Oncology
DX: Z08 Encounter for follow-up examination after completed treatment for malignant neoplasm (principal); Z85.820 Personal history of malignant melanoma of skin; J45.909 Unspecified asthma, uncomplicated; F17.210 Nicotine dependence, cigarettes, uncomplicated; Z84.81 Family history of carrier of genetic disease; Z80.3 Family history of malignant neoplasm of breast; Z80.0 Family history of malignant neoplasm of digestive organs; Z80.1 Family history of malignant neoplasm of trachea, bronchus and lung
CPT/HCPCS: 99213

== ENCOUNTER → 2018-07-21 | Outpatient (CLI) | payer MEDICAID | LOC: ONC 10:47 | PROVIDERS: ATTEND Internal Medicine Hematology & Oncology | DX: Z08 Encounter for follow-up examination after completed treatment for malignant neoplasm (principal); Z85.820 Personal history of malignant melanoma of skin; J45.909 Unspecified asthma, uncomplicated; F17.210 Nicotine dependence, cigarettes, uncomplicated; Z84.81 Family history of carrier of genetic disease; Z80.3 Family history of malignant neoplasm of breast; Z80.0 Family history of malignant neoplasm of digestive organs; Z80.1 Family history of malignant neoplasm of trachea, bronchus and lung | CPT/HCPCS: 99213 ==

== ENCOUNTER → 2018-07-24 | Outpatient (CLI) | payer MEDICAID ==
[~2018-07-24] MED LIST changes: +HOLD METFORMIN - RECEIVED CONTRAST 20 ML VIAL IV SCH; +IOHEXOL 350 MG/ML 100 ML (OMNIPAQUE 350) VIAL IV ONE; +NS 250 ML (IVPB) BAG IV ONE
--- NOTE | 2018-07-24 10:31 | Diagnostic Imaging Report ---
PROCEDURE: CT abdomen with contrast only. TECHNIQUE: Multiple contiguous axial images were obtained through the abdomen after the administration of intravenous contrast. Auto Exposure Controls were utilized during the CT exam to meet ALARA standards for radiation dose reduction. INDICATION: Melanoma with abdominal pain and diarrhea. FINDINGS: There is no evidence of focal hepatic or splenic lesion. Gallbladder is surgically absent. There is no significant biliary ductal dilatation. No pancreatic, adrenal gland or renal abnormality is identified. There is no evidence of pathologic adenopathy. The appendix has a normal appearance. There is low density in the wall of the ascending colon; however, no surrounding inflammation is seen. There is a focal defect measuring approximately 3.8 cm in diameter in the intra-abdominal wall above the umbilicus containing omental fat. There is no evidence of bowel hernia. IMPRESSION: No acute abnormality is identified. There is intra-abdominal wall defect which may be related to previous instrumentation. Clinical correlation is recommended. There is no bowel obstruction or hernia. Dictated by: Dictated on workstation # [id number]
== END ==
LOC: RAD 09:28
PROVIDERS: ATTEND Internal Medicine Hematology & Oncology
DX: C43.70 Malignant melanoma of unspecified lower limb, including hip (principal); R19.7 Diarrhea, unspecified; R10.9 Unspecified abdominal pain; Z90.49 Acquired absence of other specified parts of digestive tract
CPT/HCPCS: 74160

== ENCOUNTER 2018-12-20 08:28 | Outpatient (RCR) | payer MEDICAID ==
[~2018-12-20 08:28] MED LIST changes: -HOLD METFORMIN - RECEIVED CONTRAST 20 ML VIAL IV SCH; -IOHEXOL 350 MG/ML 100 ML (OMNIPAQUE 350) VIAL IV ONE; -NS 250 ML (IVPB) BAG IV ONE
[2019-01-09] MEDS ORDERED: ESOM20CA PO (14:15)
[2019-01-09] MEDS ORDERED: BUDE10.2 IH (14:15)
[2019-01-09] MEDS ORDERED: RT-ALBUINH INH (14:15)
[2019-01-11] MEDS ORDERED: DOCU-143 PO (12:24)
[2019-01-11] MEDS ORDERED: ACHD5005 PO (12:24)
== END 2019-03-15 16:30 | disposition home or self-care (01) ==
LOC: ONC 08:28
PROVIDERS: ATTEND Internal Medicine Hematology & Oncology
DX: Z08 Encounter for follow-up examination after completed treatment for malignant neoplasm (principal); Z85.820 Personal history of malignant melanoma of skin; J45.909 Unspecified asthma, uncomplicated; F17.210 Nicotine dependence, cigarettes, uncomplicated; Z84.81 Family history of carrier of genetic disease; Z80.3 Family history of malignant neoplasm of breast; Z80.0 Family history of malignant neoplasm of digestive organs; Z80.1 Family history of malignant neoplasm of trachea, bronchus and lung
CPT/HCPCS: 99213

== ENCOUNTER → 2018-12-22 | Outpatient (CLI) | payer MEDICAID ==
[~2018-12-22] MED LIST changes: +BUDE10.2 IH; +ESOM20CA PO; +RT-ALBUINH INH
== END ==
LOC: WOUNDCARE 07:59
PROVIDERS: ATTEND Surgery
DX: L97.221 Non-pressure chronic ulcer of left calf limited to breakdown of skin (principal); R22.42 Localized swelling, mass and lump, left lower limb; C43.72 Malignant melanoma of left lower limb, including hip
CPT/HCPCS: 11104; 88305

== ENCOUNTER → 2018-12-27 | Outpatient (CLI) | payer MEDICAID ==
[~2018-12-27] MED LIST changes: -BUDE10.2 IH; -ESOM20CA PO; -RT-ALBUINH INH
== END ==
LOC: WOUNDCARE 09:41
PROVIDERS: ATTEND Surgery
DX: L97.221 Non-pressure chronic ulcer of left calf limited to breakdown of skin (principal); C43.72 Malignant melanoma of left lower limb, including hip; I96 Gangrene, not elsewhere classified; R22.42 Localized swelling, mass and lump, left lower limb
CPT/HCPCS: 99212

== ENCOUNTER 2019-01-09 06:06 | Outpatient (CLI) | payer MEDICAID ==
[~2019-01-09] VITALS: Ht 177.8 cm; Wt 108.6 kg
[2019-01-09] MEDS ORDERED: BUDE10.2 IH (14:15)
[2019-01-09] MEDS ORDERED: RT-ALBUINH INH (14:15)
[2019-01-09] MEDS ORDERED: ESOM20CA PO (14:15)
[2019-01-11] MEDS ORDERED: ACHD5005 PO (12:24)
[2019-01-11] MEDS ORDERED: DOCU-143 PO (12:24)
== END 2019-01-09 14:21 | disposition home or self-care (01) ==
LOC: PREOP 06:06
PROVIDERS: ATTEND Surgery
DX: Z01.818 Encounter for other preprocedural examination (principal)

== ENCOUNTER 2019-01-11 05:49 | Day surgery (SDC) | payer MEDICAID ==
[~2019-01-11] VITALS: Ht 177.8 cm; Wt 108.6 kg
[2019-01-11] VITALS (14 sets, daily range): BP systolic 144–168; BP diastolic 94–116
[~2019-01-11 05:49] MED LIST changes: +BUDE10.2 IH; +ESOM20CA PO; +RT-ALBUINH INH
[2019-01-11] MEDS ORDERED: ceFAZolin 2 GM IV Premixed 50 ML IV ONE (06:15)
[2019-01-11] MEDS ORDERED: FAMOTIDINE 20MG/2ML IV (PEPCID) IV ONE (06:30)
[2019-01-11] MEDS: LACTATED RINGERS 1,000 ML IV PRN ×2 (06:33→12:06)
[2019-01-11] MEDS ORDERED: CATHETER FLUSH 10 ML SYR IV PRN (06:45)
--- NOTE | 2019-01-11 08:36 | Progress Note-Pre Operative ---
Pre-Operative Progress Note H&P Reviewed The H&P was reviewed, patient examined and no changes noted. 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
--- NOTE | 2019-01-11 08:55 | Diagnostic Imaging Report ---
EXAMINATION: Lymphoscintigraphy INDICATION: Melanoma There are no prior studies available for comparison. Following aseptic preparation of the skin, 1.1 mCi of 99m technetium sulfur colloid was injected in 4 divided doses around the melanoma site in the left lower leg. A single image of the site was obtained. IMPRESSION: There has been injection of the soft tissues about the melanoma site in the left lower leg. Dictated by: Dictated on workstation # [id number]
[2019-01-11] MEDS ORDERED: proPOfol 200 MG/20 ML (DIPRIVAN) VIAL IV ONE ×2 (10:15→10:41)
[2019-01-11] MEDS ORDERED: LIDOCAINE PF 2% 5 ML (XYLOCAINE) VIAL ONE (10:15)
[2019-01-11] MEDS ORDERED: SEVOFLURANE (ULTANE) 15 ML INHAL SOLN ONE ×7 (10:15→12:10)
[2019-01-11] MEDS ORDERED: BUP/EPI 0.5% 1:200,000 (SENSORCAINE) 30 ML VIAL ONE (10:15)
[2019-01-11] MEDS ORDERED: MIDAZOLAM 2 MG/2 ML (VERSED) VIAL ONE (10:16)
[2019-01-11] MEDS ORDERED: fentaNYL INJECTION 100 MCG/2 ML AMP ONE ×2 (10:16→10:43)
[2019-01-11] MEDS ORDERED: METHYLENE BLUE 0.5% (PROVAYBLUE) 50 mg/10 ml vial IV ONE (10:34)
[2019-01-11] MEDS ORDERED: 0.9% SODIUM CHLORIDE PF INJ 20 ML VIAL ONE (10:41)
[2019-01-11] MEDS ORDERED: DEXAMETHASONE 10 MG/ML (DECADRON) 1 ML VIAL ONE (11:06)
[2019-01-11] MEDS ORDERED: ONDANSETRON 4 MG/2 ML (SDV) Z0FRAN ONE (11:06)
--- NOTE | 2019-01-11 12:14 | Progress Note-Post Operative ---
Post-Operative Progess Note Surgeon (s)/Disability Benefits Specialist (s) Surgeon JOSE CUMMINGS DO Disability Benefits Specialist: na Pre-Operative Diagnosis recurrent melanoma left lower extremity Post-Operative Diagnosis same Procedure & Operative Findings Date of Procedure 01/11/19 Procedure Performed/Findings sentinel node biopsy left groin with layered closure, wide excision recurrent melanoma 9x5cm Anesthesia Type gen Estimated Blood Loss Estimated blood loss (mL): min Specimens/Packing Specimens Removed left groin sentinel node and wide excision lle recurrent melanoma JOSE CUMMINGS DO Jan 11, 2019 12:14 POS
[2019-01-11] MEDS ORDERED: MEPERIDINE (DEMEROL) INJ 50 MG/ML ONE (12:19)
[2019-01-11] MEDS ORDERED: morphine INJ 10 MG/ML 1ML (SYR OR VIAL) ONE (12:20)
[2019-01-11] MEDS ORDERED: ACHD5005 PO (12:24)
[2019-01-11] MEDS ORDERED: DOCU-143 PO (12:24)
--- NOTE | 2019-01-11 12:26 | Discharge Inst-Simple/Standard ---
Discharge Inst-Standard Discharge Medications New, Converted or Re-Newed RX: RX on Chart Patient Instructions/Follow Up Plan of Care/Instructions/FU: 1 week Darci Follow up with Dr. Bejarano nurse tomorrow for wound care needs. Bring someone with you to learn how to pack. Activity as Tolerated: No Discharge Diet: Regular Diet Other Inst to Patient Follow up Appt: Make appointment for [address] Bejarano Nurse tomorrow for wound care. Instructions: No strenuous activity. May shower in 24 hours, no tub bath or soaking. Use incentive spirometer at home as directed. No Smoking Skin/Wound Care: Keep clean and dry. Pack wet to dry as instructed. Symptoms to Report: Appetite Changes, Extremity Discoloration, Numbness/Tingling, Swelling Increased, Bleeding Excessive, Eyesight Changes, Pain Increased, Urine Color Change, Constipation(Persistent), Fever over 101 degree F, Pain/Pressure in chest, Urinating Difficulty, Cough Up/Vomit Blood, Heart Beat Irreg/Pounding, Pain/Pressure in jaw, Vaginal Bleeding Increase, Cramps in feet or legs, Lighth eadedness, Pain/Pressure in shoulder, Diarrhea(Persistent), Memory Changes Suddenly, Questions/Concerns, Weight gain consecutive days, Dizziness/Fainting, Nausea/Vomiting, Shortness of Breath, Weight gain over 2 pounds If questions or concerns contact your physician Or seek help at emergency department. JOSE BEJARANO DO Jan 11, 2019 12:26 POS
[2019-01-11] MEDS ORDERED: morphine INJ 10 MG/ML 1ML (SYR OR VIAL) IVP ONE (12:30)
[2019-01-11] MEDS ORDERED: ONDANSETRON 4 MG/2 ML (SDV) Z0FRAN IVP PRN (12:30)
[2019-01-11] MEDS ORDERED: HYDROmorphone 2 MG/ML VIAL (DILAUDID) IV ONE (12:30)
[2019-01-11] MEDS ORDERED: MEPERIDINE (DEMEROL) INJ 50 MG/ML IVP ONE (12:30)
[2019-01-11] MEDS ORDERED: meTOprolol 5 MG/5 ML (LOPRESSOR) VIAL ONE ×2 (12:43→13:10)
[2019-01-11] MEDS: meTOprolol 5 MG/5 ML (LOPRESSOR) VIAL IV PRN ×2 (13:03→13:18)
[2019-01-11] MEDS ORDERED: meTOprolol 5 MG/5 ML (LOPRESSOR) VIAL IV ONE ×2 (13:15→13:30)
--- NOTE | 2019-01-11 21:05 | OPERATIVE REPORT ---
DATE OF SERVICE: 01/11/2019 PREOPERATIVE DIAGNOSIS: Recurrent left lower extremity melanoma. POSTOPERATIVE DIAGNOSIS: Recurrent left lower extremity melanoma. PROCEDURE PERFORMED: Callao lymph node biopsy, left groin with layered closure and wide excision of recurrent melanoma, left lower extremity 9 x 5 cm. SURGEON: Prince Bejarano DO ANESTHESIA: General. ESTIMATED BLOOD LOSS: Minimal. COMPLICATIONS: None. INDICATIONS: The patient is a 43-year-old male with recurrent melanoma of the left lower extremity. He understands risks and benefits of procedure and wished to proceed with procedure. Consent was signed in the chart. DESCRIPTION OF PROCEDURE: The patient was taken to the operating suite. He was prepped in a sterile fashion. Timeout was performed. Methylene blue was injected in the left lower extremity distal to the lymph node basin. The patient was then reprepped and draped and the Fengxiafei counter was then used to isolate the sentinel node. A 15 blade scalpel was used to dissect down through the skin and cautery was then used to start to dissect down through the subcutaneous tissues and the deeper fascia was then opened exposing sentinel node which was then able to be dissected around bluntly with cautery dissection. It was blue in color and had a count of 7036. A 10-second count was 63800. No other hot nodes were able to be isolated. A 10-second background of the left middle area demonstrated to be 73. The wound was then irrigated with sterile water and suctioned. Hemostasis was achieved. The deep tissues were reapproximated using 3-0 Vicryl. The subcutaneous tissues were reapproximated using 3-0 Vicryl and the skin was then closed using 4-0 Monocryl in a subcuticular fashion. The area was washed and dried and Skin Affix was placed over the incision. Attention was then placed to the left lower extremity, a recurrence of the melanoma where the previous skin graft was, the biopsies are demonstrated within the middle of the previous skin graft. An incision was made around the biopsies trying to obtain an area of 2 cm. A 15 blade scalpel was used to make the skin incision with the overall dimensions being 9 x 5 cm. The skin and subcutaneous tissues removed with this going all the way down to the tibia. There were two jennifer that were present that were under the skin and stapled into the tibia, which were able to be removed with a hemostat. Once the tibialis anterior muscle fascia was encountered, the fascia was taken off of it leaving the muscle due to the scarring of the skin graft to this area. The overall area of the recurrence at this point was removed and the skin was tagged with a short suture superiorly and long suture laterally. The wound was irrigated with copious amounts of water and hemostasis was achieved. The wound was then packed wet to dry. The patient tolerated procedure well without any complications. We will await pathology results. The patient discussed need for further wound care and then skin grafting later. Job ID: [id number] DocumentID: [id number] Dictated Date: 01/11/2019 20:21:44 Genetic Technologist Date: 01/11/2019 21:04:41 Dictated By: DO MANUEL UMANZOR
== END 2019-01-11 14:30 | disposition home or self-care (01) ==
LOC: CARD 05:49
PROVIDERS: ATTEND Surgery
DX: C43.72 Malignant melanoma of left lower limb, including hip (principal); C77.4 Secondary and unspecified malignant neoplasm of inguinal and lower limb lymph nodes; F17.210 Nicotine dependence, cigarettes, uncomplicated; J45.909 Unspecified asthma, uncomplicated; G47.33 Obstructive sleep apnea (adult) (pediatric); K21.9 Gastro-esophageal reflux disease without esophagitis; Z79.899 Other long term (current) drug therapy
CPT/HCPCS: 78195; 87081; 88305; 88307; 94664

== ENCOUNTER → 2019-03-09 | Outpatient (CLI) | payer SELFPAY ==
[~2019-03-09] VITALS: Ht 177.8 cm; Wt 109.0 kg
[~2019-03-09] MED LIST changes: +VANCOMYCIN 1500 MG/NS 500 ML IVPB IV NR; +cefTRIAXone 2,000 MG/SWFI 20 ML IV PUSH IV ONE
[2019-03-09 12:35] VITALS: BP 142/96
--- NOTE | 2019-03-09 12:54 | Diagnostic Imaging Report ---
INDICATION: Central venous catheter evaluation. Portable upright AP view of the chest is obtained with no previous study for comparison. FINDINGS: Heart size and pulmonary vascularity are at the upper limits of normal. There is no evidence of overt edema. No pneumothorax or consolidation is identified. Right upper extremity PICC is in place with tip projecting over the mid superior vena cava. There is no evidence of pneumothorax. IMPRESSION: No evidence of complication post right upper extremity PICC placement. Dictated by: Dictated on workstation # [id number]
[2019-03-09 12:56] LABS: BASOPHILS % (AUTO) 0 % (0-10); EOSINOPHILS # (AUTO) 0.2 10^3/uL (0.0-0.3); EOSINOPHILS % (AUTO) 3 % (0-10); HEMATOCRIT 37 % (40-54); HEMOGLOBIN 11.8 G/DL (13.3-17.7); LYMPHOCYTES # (AUTO) 1.9 X 10^3 (1.0-4.0); LYMPHOCYTES % (AUTO) 28 % (12-44); MEAN CORPUSCULAR HEMOGLOBIN 30 PG (25-34); MEAN CORPUSCULAR HGB CONC 32 G/DL (32-36); MEAN CORPUSCULAR VOLUME 92 FL (80-99); MEAN PLATELET VOLUME 8.6 FL (7.4-10.4); MONOCYTES # (AUTO) 0.6 X 10^3 (0.0-1.0); MONOCYTES % (AUTO) 9 % (0-12); NEUTROPHILS # (AUTO) 4.1 X 10^3 (1.8-7.8); NEUTROPHILS % (AUTO) 60 % (42-75); PLATELET COUNT 296 10^3/uL (130-400); RED CELL DISTRIBUTION WIDTH 13.8 % (10.0-14.5); WHITE BLOOD COUNT 6.8 10^3/uL (4.3-11.0)
[2019-03-09 13:19] LABS: ALANINE AMINOTRANSFERASE 15 U/L (0-55); ALBUMIN 3.5 GM/DL (3.2-4.5); ALKALINE PHOSPHATASE 79 U/L (40-136); BILIRUBIN,TOTAL 0.2 MG/DL (0.1-1.0); BUN/CREATININE RATIO 15; CALCIUM 8.4 MG/DL (8.5-10.1); CARBON DIOXIDE 24 MMOL/L (21-32); CHLORIDE 103 MMOL/L (98-107); CREATININE SERUM 0.74 MG/DL (0.60-1.30); GFR ESTIMATED > 60; GLUCOSE 101 MG/DL (70-105); POTASSIUM 3.9 MMOL/L (3.6-5.0); SODIUM 139 MMOL/L (135-145); TOTAL PROTEIN 6.5 GM/DL (6.4-8.2)
[2019-03-09 13:23] LABS: ERYTHROCYTE SEDIMENTATION RATE 24 MM/HR (0-15)
[2019-03-09 15:35] VITALS: BP 142/96
== END ==
LOC: SDC 11:08
PROVIDERS: ATTEND Internal Medicine Infectious Disease
DX: M86.362 Chronic multifocal osteomyelitis, left tibia and fibula (principal)
CPT/HCPCS: 36415; 36569; 71045; 76937; 80053; 85025; 85652; 86141

== ENCOUNTER → 2019-03-12 | Outpatient (CLI) | payer OTHER ==
[~2019-03-12] MED LIST changes: -VANCOMYCIN 1500 MG/NS 500 ML IVPB IV NR; -cefTRIAXone 2,000 MG/SWFI 20 ML IV PUSH IV ONE
[2019-03-12 21:18] LABS: HEMATOCRIT 36 % (40-54); HEMOGLOBIN 11.3 G/DL (13.3-17.7); MEAN CORPUSCULAR HEMOGLOBIN 30 PG (25-34); MEAN CORPUSCULAR HGB CONC 32 G/DL (32-36); MEAN CORPUSCULAR VOLUME 95 FL (80-99); PLATELET COUNT 286 10^3/uL (130-400); RED CELL DISTRIBUTION WIDTH 13.8 % (10.0-14.5); WHITE BLOOD COUNT 9.4 10^3/uL (4.3-11.0)
[2019-03-12 21:19] LABS: BASOPHILS # (AUTO) 0.1 10^3/uL (0.0-0.1); BASOPHILS % (AUTO) 1 % (0-10); EOSINOPHILS # (AUTO) 0.5 10^3/uL (0.0-0.3); EOSINOPHILS % (AUTO) 5 % (0-10); LYMPHOCYTES # (AUTO) 2.3 X 10^3 (1.0-4.0); LYMPHOCYTES % (AUTO) 24 % (12-44); MEAN PLATELET VOLUME 9.5 FL (7.4-10.4); MONOCYTES # (AUTO) 0.9 X 10^3 (0.0-1.0); MONOCYTES % (AUTO) 10 % (0-12); NEUTROPHILS # (AUTO) 5.6 X 10^3 (1.8-7.8); NEUTROPHILS % (AUTO) 60 % (42-75)
[2019-03-12 21:23] LABS: ERYTHROCYTE SEDIMENTATION RATE 14 MM/HR (0-15)
[2019-03-12 21:55] LABS: ALKALINE PHOSPHATASE 81 U/L (40-136); BILIRUBIN,TOTAL 0.2 MG/DL (0.1-1.0); BUN/CREATININE RATIO 11; CALCIUM 8.7 MG/DL (8.5-10.1); CARBON DIOXIDE 25 MMOL/L (21-32); CHLORIDE 102 MMOL/L (98-107); CREATININE SERUM 0.71 MG/DL (0.60-1.30); GFR ESTIMATED > 60; GLUCOSE 103 MG/DL (70-105); POTASSIUM 3.8 MMOL/L (3.6-5.0); SODIUM 140 MMOL/L (135-145)
[2019-03-12 21:56] LABS: ALANINE AMINOTRANSFERASE 12 U/L (0-55); ALBUMIN 3.6 GM/DL (3.2-4.5); TOTAL PROTEIN 6.7 GM/DL (6.4-8.2); VANCOMYCIN,TROUGH 9.7 UG/ML (10.0-20.0)
== END ==
LOC: CATH 18:29
PROVIDERS: ATTEND Surgery
DX: M86.362 Chronic multifocal osteomyelitis, left tibia and fibula (principal)
CPT/HCPCS: 36415; 80053; 80202; 85025; 85652; 86141

== ENCOUNTER → 2019-03-16 | Outpatient (CLI) | payer OTHER | LOC: LABNPT 10:40 | PROVIDERS: ATTEND Internal Medicine Infectious Disease | DX: Z01.89 Encounter for other specified special examinations (principal); Z79.2 Long term (current) use of antibiotics | CPT/HCPCS: 80202 ==

== ENCOUNTER → 2019-03-19 | Outpatient (CLI) | payer OTHER | LOC: LAB 08:00 | PROVIDERS: ATTEND Internal Medicine Infectious Disease | DX: J45.909 Unspecified asthma, uncomplicated (principal); M86.662 Other chronic osteomyelitis, left tibia and fibula; Z48.3 Aftercare following surgery for neoplasm | CPT/HCPCS: 36415; 83880 ==

== ENCOUNTER → 2019-03-19 | Outpatient (CLI) | payer OTHER ==
[~2019-03-19] MED LIST changes: +CATHETER FLUSH 10 ML SYR IV PRN; +HOLD METFORMIN - RECEIVED CONTRAST 20 ML VIAL IV SCH; +IOHEXOL 350 MG/ML 100 ML (OMNIPAQUE 350) VIAL IV ONE; +NS 100 ML (IVPB) BAG IV ONE
--- NOTE | 2019-03-19 14:33 | Diagnostic Imaging Report ---
PROCEDURE: CT angiography of the chest with contrast. TECHNIQUE: Multiple contiguous axial images were obtained through the chest after uneventful bolus administration of intravenous contrast. 3D reconstructed CTA MIP acquisitions were also performed. Auto Exposure Controls were utilized during the CT exam to meet ALARA standards for radiation dose reduction. INDICATION: Shortness of breath for two days. Patient has history of melanoma. COMPARISON: Comparison is made with noncontrast CT chest from 05/26/2016. FINDINGS: Evaluation of the pulmonary arterial system is without thromboembolism. No definite filling defects are seen within central, lobar, or segmental branches. The thoracic aorta is normal in caliber. No dissection is identified. No pericardial or pleural fluid is identified. There are some pulmonary micronodules in the right upper lobe, largest approximately 5 mm in size compared to approximately 4 mm on prior from 2017. Additional subpleural micronodules in the right upper lobe are also noted. There is a tiny nodule in the left upper lobe, which appears stable. Interstitial markings are somewhat prominent in the upper lobes bilaterally, which may be going to some mild interstitial infiltrate. No consolidation is seen. The lower lobes are clear. Upper abdomen is unremarkable. IMPRESSION: 1. No evidence of pulmonary embolism or thoracic aortic dissection. 2. There are some mild interstitial changes in the bilateral upper lobes, perhaps on an infectious/inflammatory basis. No other significant abnormality is seen. Dictated by: Dictated on workstation # [id number]
== END ==
LOC: RAD 13:43
PROVIDERS: ATTEND Nurse Practitioner Adult Health
DX: C43.72 Malignant melanoma of left lower limb, including hip (principal); J98.8 Other specified respiratory disorders; R06.02 Shortness of breath
CPT/HCPCS: 71275

== ENCOUNTER → 2019-03-19 | Outpatient (CLI) | payer OTHER ==
[~2019-03-19] MED LIST changes: -CATHETER FLUSH 10 ML SYR IV PRN; -HOLD METFORMIN - RECEIVED CONTRAST 20 ML VIAL IV SCH; -IOHEXOL 350 MG/ML 100 ML (OMNIPAQUE 350) VIAL IV ONE; -NS 100 ML (IVPB) BAG IV ONE
[2019-03-19 10:42] LABS: BASOPHILS % (AUTO) 1 % (0-10); EOSINOPHILS # (AUTO) 0.4 10^3/uL (0.0-0.3); EOSINOPHILS % (AUTO) 6 % (0-10); HEMATOCRIT 36 % (40-54); HEMOGLOBIN 11.6 G/DL (13.3-17.7); LYMPHOCYTES # (AUTO) 1.9 X 10^3 (1.0-4.0); LYMPHOCYTES % (AUTO) 31 % (12-44); MEAN CORPUSCULAR HEMOGLOBIN 29 PG (25-34); MEAN CORPUSCULAR HGB CONC 32 G/DL (32-36); MEAN CORPUSCULAR VOLUME 91 FL (80-99); MEAN PLATELET VOLUME 9.5 FL (7.4-10.4); MONOCYTES # (AUTO) 0.7 X 10^3 (0.0-1.0); MONOCYTES % (AUTO) 12 % (0-12); NEUTROPHILS % (AUTO) 50 % (42-75); PLATELET COUNT 326 10^3/uL (130-400); RED CELL DISTRIBUTION WIDTH 14.5 % (10.0-14.5); WHITE BLOOD COUNT 6.1 10^3/uL (4.3-11.0)
[2019-03-19 11:05] LABS: ALANINE AMINOTRANSFERASE 13 U/L (0-55); ALBUMIN 3.8 GM/DL (3.2-4.5); ALKALINE PHOSPHATASE 75 U/L (40-136); BILIRUBIN,TOTAL 0.3 MG/DL (0.1-1.0); BUN/CREATININE RATIO 13; CALCIUM 8.5 MG/DL (8.5-10.1); CARBON DIOXIDE 25 MMOL/L (21-32); CHLORIDE 108 MMOL/L (98-107); CREATININE SERUM 0.78 MG/DL (0.60-1.30); GFR ESTIMATED > 60; GLUCOSE 86 MG/DL (70-105); POTASSIUM 3.9 MMOL/L (3.6-5.0); SODIUM 143 MMOL/L (135-145); TOTAL PROTEIN 6.7 GM/DL (6.4-8.2)
[2019-03-19 11:13] LABS: VANCOMYCIN,TROUGH 17.7 UG/ML (10.0-20.0)
[2019-03-19 11:19] LABS: ERYTHROCYTE SEDIMENTATION RATE 14 MM/HR (0-15)
== END ==
LOC: LAB 08:00
PROVIDERS: ATTEND Family Medicine
DX: M86.662 Other chronic osteomyelitis, left tibia and fibula (principal)
CPT/HCPCS: 36415; 80053; 80202; 85025; 85652; 86141

== ENCOUNTER 2019-04-23 10:45 | Outpatient (RCR) | payer MEDICAID, OTHER ==
--- NOTE | 2019-03-28 08:53 | Diagnostic Imaging Report ---
EXAMINATION: Chest 1 view HISTORY: PICC. COMPARISON: 03/09/2019. FINDINGS: The right PICC appears stable in configuration with the tip overlying the low SVC. The lung volumes are normal. Prominent interstitial markings are visualized in the perihilar and upper lung regions. No focal consolidation is seen. No large pleural effusion or pneumothorax is seen. The cardiomediastinal silhouette is normal in size and contour. No acute osseous abnormality is seen. IMPRESSION: 1. Stable configuration of the right PICC with the tip overlying the low SVC. 2. Prominent interstitial markings in the mid and upper lungs. No focal consolidation or mass. Dictated by: Dictated on workstation # [id number]
[2019-03-28 10:05] VITALS: BP 152/92
[2019-03-28 10:25] LABS: BASOPHILS % (AUTO) 1 % (0-10); EOSINOPHILS # (AUTO) 0.2 10^3/uL (0.0-0.3); EOSINOPHILS % (AUTO) 4 % (0-10); HEMATOCRIT 29 % (40-54); HEMOGLOBIN 9.3 G/DL (13.3-17.7); LYMPHOCYTES # (AUTO) 0.8 X 10^3 (1.0-4.0); LYMPHOCYTES % (AUTO) 17 % (12-44); MEAN CORPUSCULAR HEMOGLOBIN 29 PG (25-34); MEAN CORPUSCULAR HGB CONC 32 G/DL (32-36); MEAN CORPUSCULAR VOLUME 90 FL (80-99); MEAN PLATELET VOLUME 10.8 FL (7.4-10.4); MONOCYTES # (AUTO) 0.9 X 10^3 (0.0-1.0); MONOCYTES % (AUTO) 19 % (0-12); NEUTROPHILS # (AUTO) 2.8 X 10^3 (1.8-7.8); NEUTROPHILS % (AUTO) 60 % (42-75); PLATELET COUNT 205 10^3/uL (130-400); WHITE BLOOD COUNT 4.6 10^3/uL (4.3-11.0)
[2019-03-28 10:44] LABS: ALANINE AMINOTRANSFERASE 14 U/L (0-55); ALBUMIN 3.6 GM/DL (3.2-4.5); ALKALINE PHOSPHATASE 75 U/L (40-136); BILIRUBIN,TOTAL 0.2 MG/DL (0.1-1.0); BUN/CREATININE RATIO 7; CALCIUM 8.9 MG/DL (8.5-10.1); CARBON DIOXIDE 19 MMOL/L (21-32); CHLORIDE 105 MMOL/L (98-107); CREATININE SERUM 4.68 MG/DL (0.60-1.30); GFR ESTIMATED 14; GLUCOSE 98 MG/DL (70-105); POTASSIUM 3.4 MMOL/L (3.6-5.0); SODIUM 138 MMOL/L (135-145); TOTAL PROTEIN 6.7 GM/DL (6.4-8.2)
[2019-03-28 10:53] LABS: VANCOMYCIN,TROUGH > 50.0 UG/ML (10.0-20.0)
--- NOTE | 2019-03-28 11:00 | NUR ---
critical labs called to LULY Pino at Dr Gallegos's office at . she notified Dr Gallegos et patient. new orders given to pt et new lab orders sent to our facility for 03/29/18
[2019-03-28 11:08] LABS: ANISOCYTOSIS SLIGHT; BAND NEUTROPHILS 1 %; BASOPHILS % (MANUAL) 0 %; EOSINOPHILS % (MANUAL) 3 %; LYMPHOCYTES % (MANUAL) 14 %; MONOCYTES % (MANUAL) 14 %; NEUTROPHILS % (MANUAL) 68 %
[2019-03-28 11:09] LABS: ERYTHROCYTE SEDIMENTATION RATE 65 MM/HR (0-15)
[2019-03-28 16:30] VITALS: BP 152/92
[2019-03-29 08:55] VITALS: BP 165/96
[2019-03-29 09:34] LABS: CALCIUM 8.9 MG/DL (8.5-10.1); CREATININE SERUM 4.44 MG/DL (0.60-1.30); POTASSIUM 3.5 MMOL/L (3.6-5.0)
[2019-03-29 10:32] LABS: VANCOMYCIN,TROUGH 103.9 UG/ML (10.0-20.0)
--- NOTE | 2019-03-29 10:38 | NUR ---
CRITICAL LABS CALLED TO [facility]ULY CHOE, WITH [facility] (DR. LARA) AT THIS TIME.
[2019-04-04 10:10] VITALS: BP 174/113
[2019-04-04 10:27] LABS: BASOPHILS # (AUTO) 0.1 10^3/uL (0.0-0.1); BASOPHILS % (AUTO) 1 % (0-10); EOSINOPHILS # (AUTO) 0.4 10^3/uL (0.0-0.3); EOSINOPHILS % (AUTO) 4 % (0-10); HEMATOCRIT 33 % (40-54); HEMOGLOBIN 10.1 G/DL (13.3-17.7); LYMPHOCYTES # (AUTO) 1.5 X 10^3 (1.0-4.0); LYMPHOCYTES % (AUTO) 16 % (12-44); MEAN CORPUSCULAR HEMOGLOBIN 28 PG (25-34); MEAN CORPUSCULAR HGB CONC 31 G/DL (32-36); MEAN CORPUSCULAR VOLUME 89 FL (80-99); MEAN PLATELET VOLUME 9.9 FL (7.4-10.4); MONOCYTES # (AUTO) 1.2 X 10^3 (0.0-1.0); MONOCYTES % (AUTO) 12 % (0-12); NEUTROPHILS # (AUTO) 6.1 X 10^3 (1.8-7.8); NEUTROPHILS % (AUTO) 66 % (42-75); PLATELET COUNT 442 10^3/uL (130-400); RED CELL DISTRIBUTION WIDTH 15.2 % (10.0-14.5); WHITE BLOOD COUNT 9.3 10^3/uL (4.3-11.0)
[2019-04-04 10:44] LABS: BILIRUBIN,TOTAL 0.3 MG/DL (0.1-1.0); CALCIUM 9.2 MG/DL (8.5-10.1); CREATININE SERUM 3.03 MG/DL (0.60-1.30); POTASSIUM 3.8 MMOL/L (3.6-5.0); TOTAL PROTEIN 7.2 GM/DL (6.4-8.2)
[2019-04-09 14:12] VITALS: BP 145/91
[2019-04-09 14:23] LABS: BASOPHILS # (AUTO) 0.1 10^3/uL (0.0-0.1); BASOPHILS % (AUTO) 1 % (0-10); EOSINOPHILS # (AUTO) 0.2 10^3/uL (0.0-0.3); EOSINOPHILS % (AUTO) 3 % (0-10); HEMATOCRIT 34 % (40-54); LYMPHOCYTES # (AUTO) 1.8 X 10^3 (1.0-4.0); LYMPHOCYTES % (AUTO) 24 % (12-44); MEAN CORPUSCULAR HEMOGLOBIN 29 PG (25-34); MEAN CORPUSCULAR HGB CONC 32 G/DL (32-36); MEAN CORPUSCULAR VOLUME 89 FL (80-99); MONOCYTES # (AUTO) 0.8 X 10^3 (0.0-1.0); MONOCYTES % (AUTO) 10 % (0-12); NEUTROPHILS # (AUTO) 4.5 X 10^3 (1.8-7.8); NEUTROPHILS % (AUTO) 61 % (42-75); PLATELET COUNT 336 10^3/uL (130-400); RED CELL DISTRIBUTION WIDTH 15.3 % (10.0-14.5); WHITE BLOOD COUNT 7.4 10^3/uL (4.3-11.0)
[2019-04-09 14:54] LABS: BILIRUBIN,TOTAL 0.1 MG/DL (0.1-1.0); CREATININE SERUM 2.22 MG/DL (0.60-1.30); POTASSIUM 3.7 MMOL/L (3.6-5.0); TOTAL PROTEIN 7.3 GM/DL (6.4-8.2)
[2019-04-09 15:04] LABS: ERYTHROCYTE SEDIMENTATION RATE 36 MM/HR (0-15)
[2019-04-16 09:25] VITALS: BP 140/102
[2019-04-16 09:39] LABS: BASOPHILS # (AUTO) 0.1 10^3/uL (0.0-0.1); BASOPHILS % (AUTO) 1 % (0-10); EOSINOPHILS # (AUTO) 0.2 10^3/uL (0.0-0.3); EOSINOPHILS % (AUTO) 3 % (0-10); HEMATOCRIT 36 % (40-54); HEMOGLOBIN 11.6 G/DL (13.3-17.7); LYMPHOCYTES # (AUTO) 1.8 X 10^3 (1.0-4.0); LYMPHOCYTES % (AUTO) 23 % (12-44); MEAN CORPUSCULAR HEMOGLOBIN 29 PG (25-34); MEAN CORPUSCULAR HGB CONC 33 G/DL (32-36); MEAN CORPUSCULAR VOLUME 88 FL (80-99); MEAN PLATELET VOLUME 10.4 FL (7.4-10.4); MONOCYTES # (AUTO) 0.7 X 10^3 (0.0-1.0); MONOCYTES % (AUTO) 8 % (0-12); NEUTROPHILS # (AUTO) 5.1 X 10^3 (1.8-7.8); NEUTROPHILS % (AUTO) 65 % (42-75); PLATELET COUNT 276 10^3/uL (130-400); RED CELL DISTRIBUTION WIDTH 15.1 % (10.0-14.5); WHITE BLOOD COUNT 7.9 10^3/uL (4.3-11.0)
[2019-04-16 10:13] LABS: ALANINE AMINOTRANSFERASE 18 U/L (0-55); ALBUMIN 4.2 GM/DL (3.2-4.5); ALKALINE PHOSPHATASE 73 U/L (40-136); BILIRUBIN,TOTAL 0.3 MG/DL (0.1-1.0); BUN/CREATININE RATIO 15; CALCIUM 9.5 MG/DL (8.5-10.1); CARBON DIOXIDE 24 MMOL/L (21-32); CHLORIDE 105 MMOL/L (98-107); CREATININE SERUM 1.27 MG/DL (0.60-1.30); GFR ESTIMATED > 60; GLUCOSE 105 MG/DL (70-105); POTASSIUM 3.9 MMOL/L (3.6-5.0); SODIUM 139 MMOL/L (135-145); TOTAL PROTEIN 7.4 GM/DL (6.4-8.2)
[2019-04-16 11:02] LABS: ERYTHROCYTE SEDIMENTATION RATE 20 MM/HR (0-15)
[~2019-04-23] VITALS: Ht 167.7 cm; Wt 105.9 kg
--- NOTE | 2019-04-23 08:33 | NUR ---
per orders this rn phoned cory cazares to confirm picc removal after april 21, 2019 infusion. cory cazares confirmed removal of picc line today. this rn to remove picc line.
[~2019-04-23 10:45] MED LIST changes: +ALTEPLASE 2 MG (CATHFLO) IV ONE; +ALTEPLASE 2 MG (CATHFLO) IV PRN; +HEParin (CENTRAL IV FLUSH) 500 UNIT/5 ML SYR IV ONE; +HEParin (CENTRAL IV FLUSH) 500 UNIT/5 ML SYR IV PRN; +HEParin (CENTRAL IV FLUSH) 500 UNIT/5 ML SYR ONE; +NS IV 1000 ML 1,000 ML IV SCH; +NS IV 1000 ML 1,000 ML ONE; +WATER (STERILE) FOR INJECTION 10 ML ONE
[2019-04-23 11:46] VITALS: BP 147/92
== END 2019-06-26 | disposition home or self-care (01) ==
LOC: SDC 10:45
PROVIDERS: ATTEND Internal Medicine Infectious Disease
DX: M86.662 Other chronic osteomyelitis, left tibia and fibula (principal)
CPT/HCPCS: 36415; 71045; 80048; 80053; 80202; 85007; 85025; 85027; 85652; 86141; 96360; 96374; 99211

== ENCOUNTER 2019-05-30 10:30 | Outpatient (RCR) | payer MEDICAID, OTHER ==
[2019-04-20 09:33] LABS: BUN/CREATININE RATIO 16; CALCIUM 9.5 MG/DL (8.5-10.1); CARBON DIOXIDE 27 MMOL/L (21-32); CHLORIDE 104 MMOL/L (98-107); CREATININE SERUM 1.01 MG/DL (0.60-1.30); GFR ESTIMATED > 60; GLUCOSE 103 MG/DL (70-105); POTASSIUM 4.1 MMOL/L (3.6-5.0); SODIUM 138 MMOL/L (135-145)
[2019-05-09 11:04] LABS: BASOPHILS % (AUTO) 0 % (0-10); EOSINOPHILS # (AUTO) 0.2 10^3/uL (0.0-0.3); EOSINOPHILS % (AUTO) 2 % (0-10); HEMATOCRIT 38 % (40-54); HEMOGLOBIN 12.6 G/DL (13.3-17.7); LYMPHOCYTES # (AUTO) 1.8 X 10^3 (1.0-4.0); LYMPHOCYTES % (AUTO) 27 % (12-44); MEAN CORPUSCULAR HEMOGLOBIN 29 PG (25-34); MEAN CORPUSCULAR HGB CONC 33 G/DL (32-36); MEAN CORPUSCULAR VOLUME 87 FL (80-99); MONOCYTES # (AUTO) 0.4 X 10^3 (0.0-1.0); MONOCYTES % (AUTO) 6 % (0-12); NEUTROPHILS # (AUTO) 4.5 X 10^3 (1.8-7.8); NEUTROPHILS % (AUTO) 65 % (42-75); PLATELET COUNT 324 10^3/uL (130-400); WHITE BLOOD COUNT 6.9 10^3/uL (4.3-11.0)
[2019-05-09 11:26] LABS: ALANINE AMINOTRANSFERASE 12 U/L (0-55); ALBUMIN 4.1 GM/DL (3.2-4.5); ALKALINE PHOSPHATASE 69 U/L (40-136); BILIRUBIN,TOTAL 0.9 MG/DL (0.1-1.0); BUN/CREATININE RATIO 13; CALCIUM 9.2 MG/DL (8.5-10.1); CARBON DIOXIDE 27 MMOL/L (21-32); CHLORIDE 105 MMOL/L (98-107); CREATININE SERUM 0.99 MG/DL (0.60-1.30); GFR ESTIMATED > 60; GLUCOSE 118 MG/DL (70-105); POTASSIUM 3.5 MMOL/L (3.6-5.0); SODIUM 140 MMOL/L (135-145); TOTAL PROTEIN 7.2 GM/DL (6.4-8.2)
[~2019-05-30 10:30] MED LIST changes: +ALTEPLASE 2 MG (CATHFLO) CANCER CENTER IV ONE; -ALTEPLASE 2 MG (CATHFLO) IV ONE; -ALTEPLASE 2 MG (CATHFLO) IV PRN; -HEParin (CENTRAL IV FLUSH) 500 UNIT/5 ML SYR IV ONE; -HEParin (CENTRAL IV FLUSH) 500 UNIT/5 ML SYR IV PRN; -HEParin (CENTRAL IV FLUSH) 500 UNIT/5 ML SYR ONE; +NS (IVPB) CANCER CENTER 250 ML IV SCH; -NS IV 1000 ML 1,000 ML IV SCH; -NS IV 1000 ML 1,000 ML ONE; +NS IV 500 ML (CANCER CENTER) IV SCH; +PEMBROLIZUMAB 200 MG in NS (IVPB) CANCER CENTER 50 ML IV SCH; -WATER (STERILE) FOR INJECTION 10 ML ONE
[2019-05-30 11:05] LABS: BASOPHILS # (AUTO) 0.1 10^3/uL (0.0-0.1); BASOPHILS % (AUTO) 1 % (0-10); EOSINOPHILS # (AUTO) 0.1 10^3/uL (0.0-0.3); EOSINOPHILS % (AUTO) 1 % (0-10); HEMATOCRIT 39 % (40-54); LYMPHOCYTES # (AUTO) 1.7 X 10^3 (1.0-4.0); LYMPHOCYTES % (AUTO) 21 % (12-44); MEAN CORPUSCULAR HEMOGLOBIN 29 PG (25-34); MEAN CORPUSCULAR HGB CONC 33 G/DL (32-36); MEAN CORPUSCULAR VOLUME 88 FL (80-99); MEAN PLATELET VOLUME 9.1 FL (7.4-10.4); MONOCYTES # (AUTO) 0.7 X 10^3 (0.0-1.0); MONOCYTES % (AUTO) 9 % (0-12); NEUTROPHILS # (AUTO) 5.4 X 10^3 (1.8-7.8); NEUTROPHILS % (AUTO) 68 % (42-75); PLATELET COUNT 411 10^3/uL (130-400); RED CELL DISTRIBUTION WIDTH 18.4 % (10.0-14.5)
[2019-05-30 11:19] LABS: ALANINE AMINOTRANSFERASE 20 U/L (0-55); ALBUMIN 4.3 GM/DL (3.2-4.5); ALKALINE PHOSPHATASE 75 U/L (40-136); BILIRUBIN,TOTAL 0.3 MG/DL (0.1-1.0); BUN/CREATININE RATIO 17; CALCIUM 9.4 MG/DL (8.5-10.1); CARBON DIOXIDE 27 MMOL/L (21-32); CHLORIDE 97 MMOL/L (98-107); CREATININE SERUM 1.09 MG/DL (0.60-1.30); GFR ESTIMATED > 60; GLUCOSE 124 MG/DL (70-105); POTASSIUM 3.2 MMOL/L (3.6-5.0); SODIUM 137 MMOL/L (135-145); TOTAL PROTEIN 7.8 GM/DL (6.4-8.2)
== END 2019-06-13 | disposition home or self-care (01) ==
LOC: ONC 10:30
PROVIDERS: ATTEND Internal Medicine Hematology & Oncology
DX: Z08 Encounter for follow-up examination after completed treatment for malignant neoplasm (principal); Z85.820 Personal history of malignant melanoma of skin; J45.909 Unspecified asthma, uncomplicated; F17.210 Nicotine dependence, cigarettes, uncomplicated; Z84.81 Family history of carrier of genetic disease; Z80.3 Family history of malignant neoplasm of breast; Z80.0 Family history of malignant neoplasm of digestive organs; Z80.1 Family history of malignant neoplasm of trachea, bronchus and lung
CPT/HCPCS: 36415; 36591; 36593; 80048; 80053; 83615; 85025; 96413; 99213

== ENCOUNTER 2019-07-11 08:03 | Outpatient (RCR) | payer MEDICAID ==
[2019-06-20 10:29] LABS: BASOPHILS % (AUTO) 0 % (0-10); EOSINOPHILS # (AUTO) 0.2 10^3/uL (0.0-0.3); EOSINOPHILS % (AUTO) 2 % (0-10); HEMATOCRIT 37 % (40-54); LYMPHOCYTES # (AUTO) 1.8 X 10^3 (1.0-4.0); LYMPHOCYTES % (AUTO) 21 % (12-44); MEAN CORPUSCULAR HEMOGLOBIN 30 PG (25-34); MEAN CORPUSCULAR HGB CONC 33 G/DL (32-36); MEAN CORPUSCULAR VOLUME 90 FL (80-99); MONOCYTES # (AUTO) 0.8 X 10^3 (0.0-1.0); MONOCYTES % (AUTO) 9 % (0-12); NEUTROPHILS # (AUTO) 5.8 X 10^3 (1.8-7.8); NEUTROPHILS % (AUTO) 68 % (42-75); PLATELET COUNT 374 10^3/uL (130-400); RED CELL DISTRIBUTION WIDTH 16.4 % (10.0-14.5); WHITE BLOOD COUNT 8.5 10^3/uL (4.3-11.0)
[2019-06-20 10:47] LABS: ALANINE AMINOTRANSFERASE 14 U/L (0-55); ALBUMIN 3.6 GM/DL (3.2-4.5); ALKALINE PHOSPHATASE 79 U/L (40-136); BILIRUBIN,TOTAL 0.5 MG/DL (0.1-1.0); BUN/CREATININE RATIO 10; CARBON DIOXIDE 27 MMOL/L (21-32); CHLORIDE 102 MMOL/L (98-107); CREATININE SERUM 0.78 MG/DL (0.60-1.30); GFR ESTIMATED > 60; GLUCOSE 94 MG/DL (70-105); POTASSIUM 3.4 MMOL/L (3.6-5.0); SODIUM 139 MMOL/L (135-145); TOTAL PROTEIN 6.9 GM/DL (6.4-8.2)
[~2019-07-11 08:03] MED LIST changes: -ALTEPLASE 2 MG (CATHFLO) CANCER CENTER IV ONE
[2019-07-11 08:21] LABS: BASOPHILS % (AUTO) 0 % (0-10); EOSINOPHILS # (AUTO) 0.2 10^3/uL (0.0-0.3); EOSINOPHILS % (AUTO) 3 % (0-10); HEMATOCRIT 38 % (40-54); HEMOGLOBIN 12.5 G/DL (13.3-17.7); LYMPHOCYTES # (AUTO) 1.4 X 10^3 (1.0-4.0); LYMPHOCYTES % (AUTO) 22 % (12-44); MEAN CORPUSCULAR HEMOGLOBIN 30 PG (25-34); MEAN CORPUSCULAR HGB CONC 33 G/DL (32-36); MEAN CORPUSCULAR VOLUME 91 FL (80-99); MEAN PLATELET VOLUME 9.5 FL (7.4-10.4); MONOCYTES # (AUTO) 0.6 X 10^3 (0.0-1.0); MONOCYTES % (AUTO) 9 % (0-12); NEUTROPHILS # (AUTO) 4.3 X 10^3 (1.8-7.8); NEUTROPHILS % (AUTO) 66 % (42-75); PLATELET COUNT 287 10^3/uL (130-400); RED CELL DISTRIBUTION WIDTH 14.4 % (10.0-14.5); WHITE BLOOD COUNT 6.5 10^3/uL (4.3-11.0)
[2019-07-11 08:41] LABS: ALANINE AMINOTRANSFERASE 13 U/L (0-55); ALBUMIN 3.8 GM/DL (3.2-4.5); ALKALINE PHOSPHATASE 73 U/L (40-136); BILIRUBIN,TOTAL 0.4 MG/DL (0.1-1.0); BUN/CREATININE RATIO 12; CALCIUM 8.8 MG/DL (8.5-10.1); CARBON DIOXIDE 25 MMOL/L (21-32); CHLORIDE 105 MMOL/L (98-107); CREATININE SERUM 0.82 MG/DL (0.60-1.30); GFR ESTIMATED > 60; GLUCOSE 102 MG/DL (70-105); POTASSIUM 3.3 MMOL/L (3.6-5.0); SODIUM 140 MMOL/L (135-145); TOTAL PROTEIN 6.9 GM/DL (6.4-8.2)
== END 2019-07-31 13:49 | disposition home or self-care (01) ==
LOC: ONC 08:03
PROVIDERS: ATTEND Internal Medicine Hematology & Oncology
DX: Z51.11 Encounter for antineoplastic chemotherapy (principal); C43.72 Malignant melanoma of left lower limb, including hip; J45.909 Unspecified asthma, uncomplicated; F17.210 Nicotine dependence, cigarettes, uncomplicated; Z84.81 Family history of carrier of genetic disease; Z80.3 Family history of malignant neoplasm of breast; Z80.0 Family history of malignant neoplasm of digestive organs; Z80.1 Family history of malignant neoplasm of trachea, bronchus and lung; Z85.820 Personal history of malignant melanoma of skin; Z79.899 Other long term (current) drug therapy
CPT/HCPCS: 36415; 80053; 83615; 85025; 96413; 99213

== ENCOUNTER 2019-08-02 09:03 | Outpatient (RCR) | payer MEDICAID ==
[2019-08-02 09:25] LABS: BASOPHILS % (AUTO) 0 % (0-10); EOSINOPHILS # (AUTO) 0.1 10^3/uL (0.0-0.3); EOSINOPHILS % (AUTO) 2 % (0-10); HEMATOCRIT 42 % (40-54); HEMOGLOBIN 13.5 G/DL (13.3-17.7); LYMPHOCYTES # (AUTO) 1.9 X 10^3 (1.0-4.0); LYMPHOCYTES % (AUTO) 27 % (12-44); MEAN CORPUSCULAR HEMOGLOBIN 29 PG (25-34); MEAN CORPUSCULAR HGB CONC 33 G/DL (32-36); MEAN CORPUSCULAR VOLUME 89 FL (80-99); MEAN PLATELET VOLUME 9.1 FL (7.4-10.4); MONOCYTES # (AUTO) 0.7 X 10^3 (0.0-1.0); MONOCYTES % (AUTO) 10 % (0-12); NEUTROPHILS # (AUTO) 4.3 X 10^3 (1.8-7.8); NEUTROPHILS % (AUTO) 61 % (42-75); PLATELET COUNT 316 10^3/uL (130-400); RED CELL DISTRIBUTION WIDTH 14.1 % (10.0-14.5)
[2019-08-02 09:43] LABS: ALANINE AMINOTRANSFERASE 11 U/L (0-55); ALBUMIN 3.9 GM/DL (3.2-4.5); ALKALINE PHOSPHATASE 74 U/L (40-136); BILIRUBIN,TOTAL 0.8 MG/DL (0.1-1.0); BUN/CREATININE RATIO 14; CALCIUM 9.1 MG/DL (8.5-10.1); CARBON DIOXIDE 28 MMOL/L (21-32); CHLORIDE 105 MMOL/L (98-107); CREATININE SERUM 0.81 MG/DL (0.60-1.30); GFR ESTIMATED > 60; GLUCOSE 105 MG/DL (70-105); POTASSIUM 3.3 MMOL/L (3.6-5.0); SODIUM 141 MMOL/L (135-145); TOTAL PROTEIN 7.2 GM/DL (6.4-8.2)
== END 2019-09-28 13:07 | disposition home or self-care (01) ==
LOC: ONC 09:03
PROVIDERS: ATTEND Internal Medicine Hematology & Oncology
DX: Z51.11 Encounter for antineoplastic chemotherapy (principal); C43.72 Malignant melanoma of left lower limb, including hip; Z98.890 Other specified postprocedural states; Z79.899 Other long term (current) drug therapy
CPT/HCPCS: 36415; 80053; 83615; 85025; 96413

== ENCOUNTER 2019-11-16 10:29 | Outpatient (RCR) | payer MEDICAID ==
[2019-10-01 10:40] LABS: BASOPHILS % (AUTO) 1 % (0-10); EOSINOPHILS # (AUTO) 0.2 10^3/uL (0.0-0.3); EOSINOPHILS % (AUTO) 4 % (0-10); HEMATOCRIT 33 % (40-54); HEMOGLOBIN 10.1 G/DL (13.3-17.7); LYMPHOCYTES # (AUTO) 1.3 X 10^3 (1.0-4.0); LYMPHOCYTES % (AUTO) 25 % (12-44); MEAN CORPUSCULAR HEMOGLOBIN 26 PG (25-34); MEAN CORPUSCULAR HGB CONC 31 G/DL (32-36); MEAN CORPUSCULAR VOLUME 85 FL (80-99); MEAN PLATELET VOLUME 8.4 FL (7.4-10.4); MONOCYTES # (AUTO) 0.5 X 10^3 (0.0-1.0); MONOCYTES % (AUTO) 9 % (0-12); NEUTROPHILS % (AUTO) 61 % (42-75); PLATELET COUNT 379 10^3/uL (130-400)
[2019-10-01 11:00] LABS: ALANINE AMINOTRANSFERASE 10 U/L (0-55); ALBUMIN 3.3 GM/DL (3.2-4.5); ALKALINE PHOSPHATASE 77 U/L (40-136); BILIRUBIN,TOTAL 0.4 MG/DL (0.1-1.0); BUN/CREATININE RATIO 15; CALCIUM 8.6 MG/DL (8.5-10.1); CARBON DIOXIDE 27 MMOL/L (21-32); CHLORIDE 104 MMOL/L (98-107); CREATININE SERUM 0.73 MG/DL (0.60-1.30); GFR ESTIMATED > 60; GLUCOSE 100 MG/DL (70-105); POTASSIUM 3.6 MMOL/L (3.6-5.0); SODIUM 138 MMOL/L (135-145); TOTAL PROTEIN 6.3 GM/DL (6.4-8.2)
[2019-11-16 11:10] LABS: BASOPHILS % (AUTO) 0 % (0-10); EOSINOPHILS # (AUTO) 0.2 10^3/uL (0.0-0.3); EOSINOPHILS % (AUTO) 4 % (0-10); HEMATOCRIT 32 % (40-54); HEMOGLOBIN 9.9 G/DL (13.3-17.7); LYMPHOCYTES # (AUTO) 1.4 X 10^3 (1.0-4.0); LYMPHOCYTES % (AUTO) 23 % (12-44); MEAN CORPUSCULAR HEMOGLOBIN 24 PG (25-34); MEAN CORPUSCULAR HGB CONC 31 G/DL (32-36); MEAN CORPUSCULAR VOLUME 77 FL (80-99); MEAN PLATELET VOLUME 9.4 FL (7.4-10.4); MONOCYTES # (AUTO) 0.5 X 10^3 (0.0-1.0); MONOCYTES % (AUTO) 9 % (0-12); NEUTROPHILS # (AUTO) 3.8 X 10^3 (1.8-7.8); NEUTROPHILS % (AUTO) 64 % (42-75); PLATELET COUNT 306 10^3/uL (130-400)
[2019-11-16 11:29] LABS: ALANINE AMINOTRANSFERASE 10 U/L (0-55); ALBUMIN 3.7 GM/DL (3.2-4.5); ALKALINE PHOSPHATASE 87 U/L (40-136); BILIRUBIN,TOTAL 0.6 MG/DL (0.1-1.0); BUN/CREATININE RATIO 13; CALCIUM 8.6 MG/DL (8.5-10.1); CARBON DIOXIDE 28 MMOL/L (21-32); CHLORIDE 100 MMOL/L (98-107); CREATININE SERUM 0.67 MG/DL (0.60-1.30); GFR ESTIMATED > 60; GLUCOSE 104 MG/DL (70-105); POTASSIUM 3.7 MMOL/L (3.6-5.0); SODIUM 135 MMOL/L (135-145); TOTAL PROTEIN 6.9 GM/DL (6.4-8.2)
== END 2019-11-23 14:33 | disposition home or self-care (01) ==
LOC: ONC 10:29
PROVIDERS: ATTEND Internal Medicine Hematology & Oncology
DX: C43.72 Malignant melanoma of left lower limb, including hip (principal); Z98.890 Other specified postprocedural states
CPT/HCPCS: 36415; 80053; 83615; 85025; 96413; 99213

== ENCOUNTER 2020-01-28 12:50 | Outpatient (RCR) | payer MEDICAID ==
[2019-12-06 13:51] LABS: BASOPHILS % (AUTO) 1 % (0-10); EOSINOPHILS # (AUTO) 0.1 10^3/uL (0.0-0.3); EOSINOPHILS % (AUTO) 2 % (0-10); HEMATOCRIT 34 % (40-54); HEMOGLOBIN 10.3 g/dL (13.3-17.7); LYMPHOCYTES # (AUTO) 1.9 10^3/uL (1.0-4.0); LYMPHOCYTES % (AUTO) 32 % (12-44); MEAN CORPUSCULAR HEMOGLOBIN 23 pg (25-34); MEAN CORPUSCULAR HGB CONC 30 g/dL (32-36); MEAN CORPUSCULAR VOLUME 76 fL (80-99); MEAN PLATELET VOLUME 8.8 fL (9.0-12.2); MONOCYTES # (AUTO) 0.5 10^3/uL (0.0-1.0); MONOCYTES % (AUTO) 8 % (0-12); NEUTROPHILS # (AUTO) 3.5 10^3/uL (1.8-7.8); NEUTROPHILS % (AUTO) 58 % (42-75); PLATELET COUNT 350 10^3/uL (130-400)
[2019-12-06 14:11] LABS: ALANINE AMINOTRANSFERASE 11 U/L (0-55); ALBUMIN 3.8 GM/DL (3.2-4.5); ALKALINE PHOSPHATASE 87 U/L (40-136); BILIRUBIN,TOTAL 0.3 MG/DL (0.1-1.0); BUN/CREATININE RATIO 15; CALCIUM 8.6 MG/DL (8.5-10.1); CARBON DIOXIDE 26 MMOL/L (21-32); CHLORIDE 105 MMOL/L (98-107); GFR ESTIMATED > 60; GLUCOSE 111 MG/DL (70-105); POTASSIUM 3.4 MMOL/L (3.6-5.0); SODIUM 141 MMOL/L (135-145); TOTAL PROTEIN 7.1 GM/DL (6.4-8.2)
[2020-01-07 10:29] LABS: BASOPHILS % (AUTO) 0 % (0-10); EOSINOPHILS # (AUTO) 0.2 10^3/uL (0.0-0.3); EOSINOPHILS % (AUTO) 2 % (0-10); HEMATOCRIT 37 % (40-54); HEMOGLOBIN 11.1 g/dL (13.3-17.7); LYMPHOCYTES # (AUTO) 1.2 10^3/uL (1.0-4.0); LYMPHOCYTES % (AUTO) 14 % (12-44); MEAN CORPUSCULAR HEMOGLOBIN 24 pg (25-34); MEAN CORPUSCULAR HGB CONC 30 g/dL (32-36); MEAN CORPUSCULAR VOLUME 80 fL (80-99); MEAN PLATELET VOLUME 9.8 fL (9.0-12.2); MONOCYTES # (AUTO) 0.7 10^3/uL (0.0-1.0); MONOCYTES % (AUTO) 8 % (0-12); NEUTROPHILS # (AUTO) 6.4 10^3/uL (1.8-7.8); NEUTROPHILS % (AUTO) 75 % (42-75); PLATELET COUNT 267 10^3/uL (130-400); WHITE BLOOD COUNT 8.5 10^3/uL (4.3-11.0)
[2020-01-07 10:47] LABS: ALANINE AMINOTRANSFERASE 11 U/L (0-55); ALBUMIN 3.9 GM/DL (3.2-4.5); ALKALINE PHOSPHATASE 73 U/L (40-136); BILIRUBIN,TOTAL 0.8 MG/DL (0.1-1.0); BUN/CREATININE RATIO 13; CALCIUM 8.9 MG/DL (8.5-10.1); CARBON DIOXIDE 27 MMOL/L (21-32); CHLORIDE 107 MMOL/L (98-107); CREATININE SERUM 0.75 MG/DL (0.60-1.30); GFR ESTIMATED > 60; GLUCOSE 105 MG/DL (70-105); POTASSIUM 3.8 MMOL/L (3.6-5.0); SODIUM 143 MMOL/L (135-145)
[2020-01-28 13:20] LABS: BASOPHILS % (AUTO) 0 % (0-10); EOSINOPHILS # (AUTO) 0.2 10^3/uL (0.0-0.3); EOSINOPHILS % (AUTO) 3 % (0-10); HEMATOCRIT 39 % (40-54); HEMOGLOBIN 11.9 g/dL (13.3-17.7); LYMPHOCYTES # (AUTO) 1.7 10^3/uL (1.0-4.0); LYMPHOCYTES % (AUTO) 27 % (12-44); MEAN CORPUSCULAR HEMOGLOBIN 26 pg (25-34); MEAN CORPUSCULAR HGB CONC 31 g/dL (32-36); MEAN CORPUSCULAR VOLUME 85 fL (80-99); MEAN PLATELET VOLUME 8.9 fL (9.0-12.2); MONOCYTES # (AUTO) 0.6 10^3/uL (0.0-1.0); MONOCYTES % (AUTO) 9 % (0-12); NEUTROPHILS # (AUTO) 3.7 10^3/uL (1.8-7.8); NEUTROPHILS % (AUTO) 59 % (42-75); PLATELET COUNT 272 10^3/uL (130-400); WHITE BLOOD COUNT 6.3 10^3/uL (4.3-11.0)
[2020-01-28 13:40] LABS: ALANINE AMINOTRANSFERASE 15 U/L (0-55); ALKALINE PHOSPHATASE 67 U/L (40-136); BILIRUBIN,TOTAL 0.6 MG/DL (0.1-1.0); BUN/CREATININE RATIO 17; CALCIUM 8.9 MG/DL (8.5-10.1); CARBON DIOXIDE 27 MMOL/L (21-32); CHLORIDE 106 MMOL/L (98-107); CREATININE SERUM 0.78 MG/DL (0.60-1.30); GFR ESTIMATED > 60; GLUCOSE 90 MG/DL (70-105); POTASSIUM 3.3 MMOL/L (3.6-5.0); SODIUM 143 MMOL/L (135-145); TOTAL PROTEIN 7.1 GM/DL (6.4-8.2)
[2020-01-28] MEDS ORDERED: FLU QUADRIvalent (3YOA+) 2020-21 0.5 ML (CANCER CTR) IM ONE (14:15)
== END 2020-03-05 | disposition home or self-care (01) ==
LOC: ONC 12:50
PROVIDERS: ATTEND Internal Medicine Hematology & Oncology
DX: C43.72 Malignant melanoma of left lower limb, including hip (principal); D50.9 Iron deficiency anemia, unspecified; R50.9 Fever, unspecified
CPT/HCPCS: 36415; 80053; 82728; 83540; 83615; 85025; 90686; 96372; 96413

== ENCOUNTER 2020-03-31 09:11 | Outpatient (RCR) | payer MEDICAID ==
[2020-03-31 09:29] LABS: BASOPHILS % (AUTO) 0 % (0-10); EOSINOPHILS # (AUTO) 0.2 10^3/uL (0.0-0.3); EOSINOPHILS % (AUTO) 2 % (0-10); HEMATOCRIT 37 % (40-54); LYMPHOCYTES # (AUTO) 1.2 X 10^3 (1.0-4.0); LYMPHOCYTES % (AUTO) 12 % (12-44); MEAN CORPUSCULAR HEMOGLOBIN 30 pg (25-34); MEAN CORPUSCULAR HGB CONC 32 g/dL (32-36); MEAN CORPUSCULAR VOLUME 93 fL (80-99); MEAN PLATELET VOLUME 9.1 fL (9.0-12.2); MONOCYTES # (AUTO) 0.8 X 10^3 (0.0-1.0); MONOCYTES % (AUTO) 7 % (0-12); NEUTROPHILS % (AUTO) 78 % (42-75); PLATELET COUNT 296 10^3/uL (130-400); WHITE BLOOD COUNT 10.2 10^3/uL (4.3-11.0)
[2020-03-31 09:44] LABS: ALANINE AMINOTRANSFERASE 7 U/L (0-55); ALBUMIN 3.6 GM/DL (3.2-4.5); ALKALINE PHOSPHATASE 71 U/L (40-136); BILIRUBIN,TOTAL 0.6 MG/DL (0.1-1.0); BUN/CREATININE RATIO 15; CALCIUM 8.6 MG/DL (8.5-10.1); CARBON DIOXIDE 24 MMOL/L (21-32); CHLORIDE 104 MMOL/L (98-107); CREATININE SERUM 0.73 MG/DL (0.60-1.30); GFR ESTIMATED > 60; GLUCOSE 107 MG/DL (70-105); POTASSIUM 3.2 MMOL/L (3.6-5.0); SODIUM 141 MMOL/L (135-145); TOTAL PROTEIN 6.7 GM/DL (6.4-8.2)
== END 2020-03-31 16:00 | disposition home or self-care (01) ==
LOC: ONC 09:11
PROVIDERS: ATTEND Internal Medicine Hematology & Oncology
DX: C43.70 Malignant melanoma of unspecified lower limb, including hip (principal); D50.9 Iron deficiency anemia, unspecified; R50.9 Fever, unspecified
CPT/HCPCS: 36415; 80053; 85025; 96413

== ENCOUNTER → 2020-06-05 | Outpatient (CLI) | payer MEDICAID ==
[~2020-06-05] MED LIST changes: -NS (IVPB) CANCER CENTER 250 ML IV SCH; -NS IV 500 ML (CANCER CENTER) IV SCH; -PEMBROLIZUMAB 200 MG in NS (IVPB) CANCER CENTER 50 ML IV SCH
== END ==
LOC: WOUNDCARE 13:09
PROVIDERS: ATTEND Surgery
DX: L97.222 Non-pressure chronic ulcer of left calf with fat layer exposed (principal); S81.802D Unspecified open wound, left lower leg, subsequent encounter; C43.72 Malignant melanoma of left lower limb, including hip; C77.4 Secondary and unspecified malignant neoplasm of inguinal and lower limb lymph nodes; I97.89 Other postprocedural complications and disorders of the circulatory system, not elsewhere classified
CPT/HCPCS: 99212

== ENCOUNTER → 2020-06-11 | Outpatient (CLI) | payer MEDICAID | LOC: WOUNDCARE 08:59 | PROVIDERS: ATTEND Surgery | DX: I96 Gangrene, not elsewhere classified (principal); L97.222 Non-pressure chronic ulcer of left calf with fat layer exposed; C76.52 Malignant neoplasm of left lower limb; C77.4 Secondary and unspecified malignant neoplasm of inguinal and lower limb lymph nodes; S81.802D Unspecified open wound, left lower leg, subsequent encounter; I97.89 Other postprocedural complications and disorders of the circulatory system, not elsewhere classified | CPT/HCPCS: 11042; 11045 ==

== ENCOUNTER → 2020-06-20 | Outpatient (CLI) | payer MEDICAID, OTHER | LOC: WOUNDCARE 09:31 | PROVIDERS: ATTEND Orthopaedic Surgery Hand Surgery | DX: I96 Gangrene, not elsewhere classified (principal); S81.802D Unspecified open wound, left lower leg, subsequent encounter; L97.222 Non-pressure chronic ulcer of left calf with fat layer exposed; C43.72 Malignant melanoma of left lower limb, including hip; C77.4 Secondary and unspecified malignant neoplasm of inguinal and lower limb lymph nodes; I97.89 Other postprocedural complications and disorders of the circulatory system, not elsewhere classified; I89.0 Lymphedema, not elsewhere classified; I87.2 Venous insufficiency (chronic) (peripheral) | CPT/HCPCS: 11042; 11045 ==

== ENCOUNTER → 2020-06-25 | Outpatient (CLI) | payer MEDICAID | LOC: WOUNDCARE 08:57 | PROVIDERS: ATTEND Surgery | DX: L97.222 Non-pressure chronic ulcer of left calf with fat layer exposed (principal); S81.802D Unspecified open wound, left lower leg, subsequent encounter; C43.72 Malignant melanoma of left lower limb, including hip; C77.4 Secondary and unspecified malignant neoplasm of inguinal and lower limb lymph nodes; I97.89 Other postprocedural complications and disorders of the circulatory system, not elsewhere classified; I89.0 Lymphedema, not elsewhere classified; I87.2 Venous insufficiency (chronic) (peripheral); I96 Gangrene, not elsewhere classified | CPT/HCPCS: 11104; 11106 ==

== ENCOUNTER → 2020-07-02 | Outpatient (CLI) | payer MEDICAID | LOC: WOUNDCARE 09:00 | PROVIDERS: ATTEND Surgery | DX: L97.222 Non-pressure chronic ulcer of left calf with fat layer exposed (principal); S81.802D Unspecified open wound, left lower leg, subsequent encounter; C43.72 Malignant melanoma of left lower limb, including hip; C77.4 Secondary and unspecified malignant neoplasm of inguinal and lower limb lymph nodes; I97.89 Other postprocedural complications and disorders of the circulatory system, not elsewhere classified; I89.0 Lymphedema, not elsewhere classified; I87.2 Venous insufficiency (chronic) (peripheral); I96 Gangrene, not elsewhere classified | CPT/HCPCS: 11042; 11045 ==

== ENCOUNTER → 2020-07-08 | Outpatient (CLI) | payer MEDICAID ==
--- NOTE | 2020-07-08 15:56 | Diagnostic Imaging Report ---
PROCEDURE: US Venous Lower Ext Rick. TECHNIQUE: Multiple Real-time grayscale images were obtained over the lower extremities in various projections, bilaterally. Additional duplex Doppler and color Doppler images were also obtained. INDICATION: Leg pain and swelling. COMPARISON: There are no prior studies available for comparison. FINDINGS: There is good blood flow throughout the venous system of each lower extremity. The vessels in the right lower extremity were easily compressible and there was no sign of a deep venous thrombosis. The vessels of the left lower extremity including the common femoral and superficial femoral veins were difficult to compress. These segments of the venous system do seem patent, however. There was good compressibility of the distal superficial femoral, popliteal, and calf veins. IMPRESSION: The left common femoral and proximal superficial femoral veins show poor compressibility; however, there is good blood flow in these vessels and there is no evidence for thrombus formation of the left lower extremity. There is no sign of a thrombus involving the right lower extremity either. Dictated by: Dictated on workstation # [id number]
== END ==
LOC: RAD 13:21
PROVIDERS: ATTEND Surgery
DX: M79.605 Pain in left leg (principal); M79.604 Pain in right leg; M79.89 Other specified soft tissue disorders
CPT/HCPCS: 93970

== ENCOUNTER → 2020-07-09 | Outpatient (CLI) | payer MEDICAID | LOC: WOUNDCARE 08:58 | PROVIDERS: ATTEND Surgery | DX: L97.222 Non-pressure chronic ulcer of left calf with fat layer exposed (principal); S81.802D Unspecified open wound, left lower leg, subsequent encounter; C43.72 Malignant melanoma of left lower limb, including hip; C77.4 Secondary and unspecified malignant neoplasm of inguinal and lower limb lymph nodes; I97.89 Other postprocedural complications and disorders of the circulatory system, not elsewhere classified; I89.0 Lymphedema, not elsewhere classified; I87.2 Venous insufficiency (chronic) (peripheral) | CPT/HCPCS: 11042; 11045 ==

== ENCOUNTER 2020-07-14 08:49 | Outpatient (RCR) | payer MEDICAID, OTHER ==
[2020-06-02 09:18] LABS: BASOPHILS # (AUTO) 0.1 10^3/uL (0.0-0.1); BASOPHILS % (AUTO) 1 % (0-10); EOSINOPHILS # (AUTO) 0.2 10^3/uL (0.0-0.3); EOSINOPHILS % (AUTO) 2 % (0-10); HEMATOCRIT 39 % (40-54); HEMOGLOBIN 12.3 g/dL (13.3-17.7); LYMPHOCYTES # (AUTO) 1.8 10^3/uL (1.0-4.0); LYMPHOCYTES % (AUTO) 26 % (12-44); MEAN CORPUSCULAR HEMOGLOBIN 29 pg (25-34); MEAN CORPUSCULAR HGB CONC 31 g/dL (32-36); MEAN CORPUSCULAR VOLUME 94 fL (80-99); MEAN PLATELET VOLUME 9.2 fL (9.0-12.2); MONOCYTES # (AUTO) 0.6 10^3/uL (0.0-1.0); MONOCYTES % (AUTO) 9 % (0-12); NEUTROPHILS # (AUTO) 4.3 10^3/uL (1.8-7.8); NEUTROPHILS % (AUTO) 61 % (42-75); PLATELET COUNT 307 10^3/uL (130-400); WHITE BLOOD COUNT 7.1 10^3/uL (4.3-11.0)
[2020-06-02 09:39] LABS: ALANINE AMINOTRANSFERASE 14 U/L (0-55); ALBUMIN 3.7 GM/DL (3.2-4.5); ALKALINE PHOSPHATASE 90 U/L (40-136); BILIRUBIN,TOTAL 0.2 MG/DL (0.1-1.0); BUN/CREATININE RATIO 22; CALCIUM 8.8 MG/DL (8.5-10.1); CARBON DIOXIDE 24 MMOL/L (21-32); CHLORIDE 108 MMOL/L (98-107); CREATININE SERUM 0.79 MG/DL (0.60-1.30); GFR ESTIMATED > 60; GLUCOSE 104 MG/DL (70-105); POTASSIUM 3.7 MMOL/L (3.6-5.0); SODIUM 142 MMOL/L (135-145)
[~2020-07-14 08:49] MED LIST changes: +NS (IVPB) CANCER CENTER 250 ML IV SCH; +NS IV 500 ML (CANCER CENTER) IV SCH; +PEMBROLIZUMAB 200 MG in NS (IVPB) CANCER CENTER 50 ML IV SCH
== END 2020-07-20 | disposition home or self-care (01) ==
LOC: ONC 08:49
PROVIDERS: ATTEND Internal Medicine Hematology & Oncology
DX: Z51.11 Encounter for antineoplastic chemotherapy (principal); C43.72 Malignant melanoma of left lower limb, including hip; D50.9 Iron deficiency anemia, unspecified; Z98.890 Other specified postprocedural states; Z92.21 Personal history of antineoplastic chemotherapy
CPT/HCPCS: 36415; 80053; 85025; 96413

== ENCOUNTER → 2020-07-16 | Outpatient (CLI) | payer MEDICAID, OTHER ==
[~2020-07-16] MED LIST changes: -NS (IVPB) CANCER CENTER 250 ML IV SCH; -NS IV 500 ML (CANCER CENTER) IV SCH; -PEMBROLIZUMAB 200 MG in NS (IVPB) CANCER CENTER 50 ML IV SCH
== END ==
LOC: WOUNDCARE 09:57
PROVIDERS: ATTEND Surgery
DX: S81.802A Unspecified open wound, left lower leg, initial encounter (principal); I89.0 Lymphedema, not elsewhere classified
CPT/HCPCS: 99213

== ENCOUNTER → 2020-07-23 | Outpatient (CLI) | payer MEDICAID | LOC: WOUNDCARE 08:52 | PROVIDERS: ATTEND Surgery | DX: C43.72 Malignant melanoma of left lower limb, including hip (principal); C77.4 Secondary and unspecified malignant neoplasm of inguinal and lower limb lymph nodes; I89.0 Lymphedema, not elsewhere classified; I96 Gangrene, not elsewhere classified; I97.89 Other postprocedural complications and disorders of the circulatory system, not elsewhere classified; L97.222 Non-pressure chronic ulcer of left calf with fat layer exposed; S81.802D Unspecified open wound, left lower leg, subsequent encounter; I87.2 Venous insufficiency (chronic) (peripheral); X58.XXXD Exposure to other specified factors, subsequent encounter | CPT/HCPCS: 11042; 11045 ==

== ENCOUNTER → 2020-07-30 | Outpatient (CLI) | payer MEDICAID | LOC: WOUNDCARE 08:57 | PROVIDERS: ATTEND Surgery | DX: C43.72 Malignant melanoma of left lower limb, including hip (principal); I89.0 Lymphedema, not elsewhere classified; C77.4 Secondary and unspecified malignant neoplasm of inguinal and lower limb lymph nodes; I96 Gangrene, not elsewhere classified; I97.89 Other postprocedural complications and disorders of the circulatory system, not elsewhere classified; L97.222 Non-pressure chronic ulcer of left calf with fat layer exposed; S81.802D Unspecified open wound, left lower leg, subsequent encounter; I87.2 Venous insufficiency (chronic) (peripheral) | CPT/HCPCS: 11042; 11045 ==

== ENCOUNTER 2020-08-12 14:16 | Outpatient (RCR) | payer MEDICAID, OTHER | END 2020-09-29 14:24 | disposition home or self-care (01) | PROVIDERS: ATTEND Orthopaedic Surgery Hand Surgery | DX: I89.0 Lymphedema, not elsewhere classified (principal); Z85.820 Personal history of malignant melanoma of skin; I10 Essential (primary) hypertension; J45.909 Unspecified asthma, uncomplicated; Z92.21 Personal history of antineoplastic chemotherapy; Z92.3 Personal history of irradiation ==

== ENCOUNTER → 2020-08-13 | Outpatient (CLI) | payer MEDICAID, OTHER | LOC: WOUNDCARE 08:50 | PROVIDERS: ATTEND Surgery | DX: I89.0 Lymphedema, not elsewhere classified (principal); I97.89 Other postprocedural complications and disorders of the circulatory system, not elsewhere classified; L97.222 Non-pressure chronic ulcer of left calf with fat layer exposed; S81.802D Unspecified open wound, left lower leg, subsequent encounter; C43.72 Malignant melanoma of left lower limb, including hip; C77.4 Secondary and unspecified malignant neoplasm of inguinal and lower limb lymph nodes; I87.2 Venous insufficiency (chronic) (peripheral); I96 Gangrene, not elsewhere classified | CPT/HCPCS: 11042; 11045 ==

== ENCOUNTER → 2020-08-19 | Outpatient (CLI) | payer MEDICAID, OTHER ==
[~2020-08-19] MED LIST changes: +BARIUM SUSPENSION 2.1% (VANILLA SILQ) 450 ML PO ONE; +CATHETER FLUSH 10 ML SYR IV PRN; +HOLD METFORMIN - RECEIVED CONTRAST 20 ML VIAL IV SCH; +IOHEXOL 350 MG/ML 100 ML (OMNIPAQUE 350) VIAL IV ONE; +NS 100 ML (IVPB) BAG IV ONE
--- NOTE | 2020-08-19 09:57 | Diagnostic Imaging Report ---
PROCEDURE: CT left tibia and fibula extremity with contrast. TECHNIQUE: Multiple axial images of the left tibia and fibula were obtained after intravenous administration of iodinated contrast. Auto Exposure Controls were utilized during the CT exam to meet ALARA standards for radiation dose reduction. DATE: August 19, 2020. INDICATION: 45-year-old male, nonhealing wound. COMPARISON: None. FINDINGS: There is a skin contour abnormality anteriorly extending from the level of the mid tibial diaphysis to the distal tibial diaphysis over a craniocaudal distance of approximately 11.6 cm. There is underlying increased attenuation within the subcutaneous tissues. There is a very high attenuation which may be procedurally related. The soft tissue abnormalities directly contact the adjacent tibia and there is prominent periosteal reaction of the tibia with proximal extent just slightly below the level of the anterior tibial tubercle and a distal extent of the periosteal reaction at the level of the distal tibial metaphysis. There is no identified cortical or aggressive bone destruction. There is diffuse subcutaneous edema centered at the level of the distal tibia and fibula and near the level of the ankle. There is additional subcutaneous edema predominantly anteriorly, medially, and laterally at the level of the more proximal aspects of the tibia and fibula and predominantly anterior subcutaneous edema near the level of the knee joint. There is no well demarcated mature drainable fluid collection or abscess identified. There is no large knee joint effusion. There is a normal variant os trigonum. There is no tibiotalar joint effusion. IMPRESSION: 1. Periosteal reaction along the tibia extending from just below the level of the anterior tibial tubercle to the level of the distal tibial metaphysis, concerning for osteomyelitis in the given scenario. The periosteal reaction appears likely acute or subacute. There is no clearly identified cortical or aggressive bone destruction on CT. 2. Anterior skin defect as above without identified drainable fluid collection or abscess. 3. There is nonspecific subcutaneous edema as above. 4. No identified knee or tibiotalar joint effusion. Dictated by: Dictated on workstation # [id number]
--- NOTE | 2020-08-19 10:21 | Diagnostic Imaging Report ---
EXAMINATION: CT chest with intravenous contrast, CT abdomen and pelvis without and with intravenous contrast. TECHNIQUE: Pre and post intravenous contrast axial imaging of the abdomen and pelvis and post contrast axial imaging of the chest were performed. All CT scans use one or more of the following dose optimizing techniques: automated exposure control, MA and/or KvP adjustment based on patient size and exam type or iterative reconstruction. HISTORY: Colon cancer. COMPARISON: 03/19/2019 and 07/24/2018 FINDINGS: There is no edema or pneumonia. No pleural effusion. No pneumothorax. There are numerous 3 mm and smaller tiny nodules in the both upper lobes which are generally centrilobular. They appear similar in size and distribution to the prior exam. There is no axillary or supraclavicular lymphadenopathy. There is no mediastinal lymphadenopathy. Heart size is normal. There are no coronary artery calcifications. No pericardial effusion. Aorta is normal in caliber. The liver is normal without focal lesion. There is no biliary ductal dilation. Gallbladder is surgically absent. Pancreas is normal. Spleen is normal. Adrenal glands are normal. The kidneys are normal. There is no hydronephrosis. Urinary bladder is normal. Visualized bowel is normal in caliber without obstruction or inflammation. There is a small fat-containing ventral hernia and a 2nd small fat-containing umbilical hernia. There are surgical clips in the left groin with extensive stranding and scarring in the left groin. No free fluid or air. No abdominal or pelvic lymphadenopathy. Aorta is normal in caliber without aneurysm. There are no suspicious osseous lesions. IMPRESSION: 1. No metastatic disease in the chest, abdomen or pelvis. 2. Extensive scarring in the left groin with adjacent surgical clips likely representing a left groin lymphadenectomy. 3. Unchanged tiny bilateral upper lobe centrilobular predominant nodules likely related to prior infection or respiratory bronchiolitis. Dictated by: Dictated on workstation # [id number]
== END ==
LOC: RAD 08:27
PROVIDERS: ATTEND Internal Medicine Hematology & Oncology
DX: C43.72 Malignant melanoma of left lower limb, including hip (principal); M79.89 Other specified soft tissue disorders; R91.8 Other nonspecific abnormal finding of lung field; Z85.038 Personal history of other malignant neoplasm of large intestine
CPT/HCPCS: 71260; 73701; 74178

== ENCOUNTER → 2020-09-03 | Outpatient (CLI) | payer MEDICAID, OTHER ==
[~2020-09-03] MED LIST changes: -BARIUM SUSPENSION 2.1% (VANILLA SILQ) 450 ML PO ONE; -CATHETER FLUSH 10 ML SYR IV PRN; -HOLD METFORMIN - RECEIVED CONTRAST 20 ML VIAL IV SCH; -IOHEXOL 350 MG/ML 100 ML (OMNIPAQUE 350) VIAL IV ONE; -NS 100 ML (IVPB) BAG IV ONE
== END ==
LOC: WOUNDCARE 08:54
PROVIDERS: ATTEND Surgery
DX: I89.0 Lymphedema, not elsewhere classified (principal); I97.89 Other postprocedural complications and disorders of the circulatory system, not elsewhere classified; L97.222 Non-pressure chronic ulcer of left calf with fat layer exposed; S81.802A Unspecified open wound, left lower leg, initial encounter; C43.72 Malignant melanoma of left lower limb, including hip; C77.4 Secondary and unspecified malignant neoplasm of inguinal and lower limb lymph nodes; I87.2 Venous insufficiency (chronic) (peripheral); I96 Gangrene, not elsewhere classified
CPT/HCPCS: 11042; 11045

== ENCOUNTER 2020-09-16 15:28 | Outpatient (RCR) | payer MEDICAID, OTHER ==
[2020-08-06 10:21] LABS: BASOPHILS % (AUTO) 1 % (0-10); EOSINOPHILS # (AUTO) 0.1 10^3/uL (0.0-0.3); EOSINOPHILS % (AUTO) 2 % (0-10); HEMATOCRIT 38 % (40-54); HEMOGLOBIN 12.2 g/dL (13.3-17.7); LYMPHOCYTES # (AUTO) 1.3 10^3/uL (1.0-4.0); LYMPHOCYTES % (AUTO) 23 % (12-44); MEAN CORPUSCULAR HEMOGLOBIN 28 pg (25-34); MEAN CORPUSCULAR HGB CONC 32 g/dL (32-36); MEAN CORPUSCULAR VOLUME 89 fL (80-99); MEAN PLATELET VOLUME 9.2 fL (9.0-12.2); MONOCYTES # (AUTO) 0.6 10^3/uL (0.0-1.0); MONOCYTES % (AUTO) 10 % (0-12); NEUTROPHILS # (AUTO) 3.5 10^3/uL (1.8-7.8); NEUTROPHILS % (AUTO) 64 % (42-75); PLATELET COUNT 290 10^3/uL (130-400); WHITE BLOOD COUNT 5.6 10^3/uL (4.3-11.0)
[2020-08-06 10:36] LABS: ALANINE AMINOTRANSFERASE 11 U/L (0-55); ALBUMIN 3.6 GM/DL (3.2-4.5); ALKALINE PHOSPHATASE 76 U/L (40-136); BILIRUBIN,TOTAL 0.8 MG/DL (0.1-1.0); BUN/CREATININE RATIO 16; CALCIUM 9.1 MG/DL (8.5-10.1); CARBON DIOXIDE 29 MMOL/L (21-32); CHLORIDE 102 MMOL/L (98-107); CREATININE SERUM 0.75 MG/DL (0.60-1.30); GFR ESTIMATED > 60; GLUCOSE 104 MG/DL (70-105); POTASSIUM 3.5 MMOL/L (3.6-5.0); SODIUM 139 MMOL/L (135-145); TOTAL PROTEIN 6.7 GM/DL (6.4-8.2)
[2020-08-25 09:32] LABS: BASOPHILS # (AUTO) 0.1 10^3/uL (0.0-0.1); BASOPHILS % (AUTO) 1 % (0-10); EOSINOPHILS # (AUTO) 0.1 10^3/uL (0.0-0.3); EOSINOPHILS % (AUTO) 2 % (0-10); HEMATOCRIT 42 % (40-54); LYMPHOCYTES # (AUTO) 1.4 10^3/uL (1.0-4.0); LYMPHOCYTES % (AUTO) 19 % (12-44); MEAN CORPUSCULAR HEMOGLOBIN 28 pg (25-34); MEAN CORPUSCULAR HGB CONC 31 g/dL (32-36); MEAN CORPUSCULAR VOLUME 90 fL (80-99); MEAN PLATELET VOLUME 9.4 fL (9.0-12.2); MONOCYTES # (AUTO) 0.6 10^3/uL (0.0-1.0); MONOCYTES % (AUTO) 8 % (0-12); NEUTROPHILS # (AUTO) 5.2 10^3/uL (1.8-7.8); NEUTROPHILS % (AUTO) 71 % (42-75); PLATELET COUNT 347 10^3/uL (130-400); WHITE BLOOD COUNT 7.4 10^3/uL (4.3-11.0)
[2020-08-25 09:48] LABS: ALANINE AMINOTRANSFERASE 16 U/L (0-55); ALBUMIN 3.8 GM/DL (3.2-4.5); ALKALINE PHOSPHATASE 85 U/L (40-136); BILIRUBIN,TOTAL 0.3 MG/DL (0.1-1.0); BUN/CREATININE RATIO 19; CALCIUM 8.9 MG/DL (8.5-10.1); CARBON DIOXIDE 26 MMOL/L (21-32); CHLORIDE 104 MMOL/L (98-107); GFR ESTIMATED > 60; GLUCOSE 113 MG/DL (70-105); POTASSIUM 3.6 MMOL/L (3.6-5.0); SODIUM 139 MMOL/L (135-145)
[~2020-09-16 15:28] MED LIST changes: +FERRIC CARBOXYMALTOSE (CANCER) 750 MG in NS (IVPB) CANCER CENTER 250 ML IV SCH; +NS (IVPB) CANCER CENTER 250 ML IV SCH; +NS IV 500 ML (CANCER CENTER) IV SCH; +PEMBROLIZUMAB 200 MG in NS (IVPB) CANCER CENTER 50 ML IV SCH
[2020-09-16 15:52] LABS: BASOPHILS % (AUTO) 1 % (0-10); EOSINOPHILS # (AUTO) 0.2 10^3/uL (0.0-0.3); EOSINOPHILS % (AUTO) 3 % (0-10); HEMATOCRIT 41 % (40-54); LYMPHOCYTES # (AUTO) 2.1 10^3/uL (1.0-4.0); LYMPHOCYTES % (AUTO) 31 % (12-44); MEAN CORPUSCULAR HEMOGLOBIN 29 pg (25-34); MEAN CORPUSCULAR HGB CONC 31 g/dL (32-36); MEAN CORPUSCULAR VOLUME 91 fL (80-99); MEAN PLATELET VOLUME 9.3 fL (9.0-12.2); MONOCYTES # (AUTO) 0.7 10^3/uL (0.0-1.0); MONOCYTES % (AUTO) 10 % (0-12); NEUTROPHILS # (AUTO) 3.7 10^3/uL (1.8-7.8); NEUTROPHILS % (AUTO) 55 % (42-75); PLATELET COUNT 285 10^3/uL (130-400); WHITE BLOOD COUNT 6.7 10^3/uL (4.3-11.0)
[2020-09-16 16:08] LABS: ALANINE AMINOTRANSFERASE 16 U/L (0-55); ALBUMIN 3.6 GM/DL (3.2-4.5); ALKALINE PHOSPHATASE 92 U/L (40-136); BILIRUBIN,TOTAL 0.3 MG/DL (0.1-1.0); BUN/CREATININE RATIO 11; CALCIUM 8.4 MG/DL (8.5-10.1); CARBON DIOXIDE 31 MMOL/L (21-32); CHLORIDE 103 MMOL/L (98-107); CREATININE SERUM 0.72 MG/DL (0.60-1.30); GFR ESTIMATED > 60; GLUCOSE 99 MG/DL (70-105); POTASSIUM 3.4 MMOL/L (3.6-5.0); SODIUM 141 MMOL/L (135-145); TOTAL PROTEIN 6.8 GM/DL (6.4-8.2)
== END 2020-09-19 11:24 | disposition home or self-care (01) ==
LOC: ONC 15:28
PROVIDERS: ATTEND Internal Medicine Hematology & Oncology
DX: Z51.11 Encounter for antineoplastic chemotherapy (principal); C43.72 Malignant melanoma of left lower limb, including hip; D64.9 Anemia, unspecified; Z98.890 Other specified postprocedural states; Z92.21 Personal history of antineoplastic chemotherapy
CPT/HCPCS: 36415; 80053; 82728; 83540; 83550; 83615; 84443; 85025; 87040; 96365; 96413; 99213

== ENCOUNTER → 2020-09-17 | Outpatient (CLI) | payer MEDICAID, OTHER ==
[~2020-09-17] MED LIST changes: -FERRIC CARBOXYMALTOSE (CANCER) 750 MG in NS (IVPB) CANCER CENTER 250 ML IV SCH; -NS (IVPB) CANCER CENTER 250 ML IV SCH; -NS IV 500 ML (CANCER CENTER) IV SCH; -PEMBROLIZUMAB 200 MG in NS (IVPB) CANCER CENTER 50 ML IV SCH
== END ==
LOC: WOUNDCARE 08:59
PROVIDERS: ATTEND Surgery
DX: I89.0 Lymphedema, not elsewhere classified (principal); L97.222 Non-pressure chronic ulcer of left calf with fat layer exposed; I97.89 Other postprocedural complications and disorders of the circulatory system, not elsewhere classified; S81.802D Unspecified open wound, left lower leg, subsequent encounter; C43.72 Malignant melanoma of left lower limb, including hip; C77.4 Secondary and unspecified malignant neoplasm of inguinal and lower limb lymph nodes; I87.2 Venous insufficiency (chronic) (peripheral); T65.222A Toxic effect of tobacco cigarettes, intentional self-harm, initial encounter; I96 Gangrene, not elsewhere classified; F17.218 Nicotine dependence, cigarettes, with other nicotine-induced disorders
CPT/HCPCS: 11042; 11045; 97606

== ENCOUNTER → 2020-09-19 | Outpatient (CLI) | payer MEDICAID, OTHER | LOC: WOUNDCARE 09:00 | PROVIDERS: ATTEND Surgery | DX: B35.8 Other dermatophytoses (principal); I96 Gangrene, not elsewhere classified; I89.0 Lymphedema, not elsewhere classified; I97.89 Other postprocedural complications and disorders of the circulatory system, not elsewhere classified; L97.222 Non-pressure chronic ulcer of left calf with fat layer exposed; S81.802D Unspecified open wound, left lower leg, subsequent encounter; C43.72 Malignant melanoma of left lower limb, including hip; C77.4 Secondary and unspecified malignant neoplasm of inguinal and lower limb lymph nodes; I87.2 Venous insufficiency (chronic) (peripheral); T65.222A Toxic effect of tobacco cigarettes, intentional self-harm, initial encounter; F17.218 Nicotine dependence, cigarettes, with other nicotine-induced disorders | CPT/HCPCS: 99212 ==

== ENCOUNTER → 2020-09-26 | Outpatient (CLI) | payer MEDICAID, OTHER | LOC: WOUNDCARE 09:00 | PROVIDERS: ATTEND Surgery | DX: L03.115 Cellulitis of right lower limb (principal); I96 Gangrene, not elsewhere classified; I89.0 Lymphedema, not elsewhere classified; I97.89 Other postprocedural complications and disorders of the circulatory system, not elsewhere classified; L97.222 Non-pressure chronic ulcer of left calf with fat layer exposed; S81.802D Unspecified open wound, left lower leg, subsequent encounter; B35.8 Other dermatophytoses; C43.72 Malignant melanoma of left lower limb, including hip; C77.4 Secondary and unspecified malignant neoplasm of inguinal and lower limb lymph nodes; I87.2 Venous insufficiency (chronic) (peripheral); T65.222A Toxic effect of tobacco cigarettes, intentional self-harm, initial encounter; F17.218 Nicotine dependence, cigarettes, with other nicotine-induced disorders | CPT/HCPCS: 11042; 11045; 97606 ==

== ENCOUNTER → 2020-09-30 | Outpatient (CLI) | payer MEDICAID, OTHER | LOC: WOUNDCARE 08:50 | PROVIDERS: ATTEND Surgery | DX: I89.0 Lymphedema, not elsewhere classified (principal); I97.89 Other postprocedural complications and disorders of the circulatory system, not elsewhere classified; L97.222 Non-pressure chronic ulcer of left calf with fat layer exposed; S81.802D Unspecified open wound, left lower leg, subsequent encounter; C43.72 Malignant melanoma of left lower limb, including hip; C77.4 Secondary and unspecified malignant neoplasm of inguinal and lower limb lymph nodes; I87.2 Venous insufficiency (chronic) (peripheral); T65.222A Toxic effect of tobacco cigarettes, intentional self-harm, initial encounter; I96 Gangrene, not elsewhere classified; F17.218 Nicotine dependence, cigarettes, with other nicotine-induced disorders | CPT/HCPCS: 11042; 11045 ==

== ENCOUNTER → 2020-10-03 | Outpatient (CLI) | payer MEDICAID, OTHER | LOC: WOUNDCARE 08:55 | PROVIDERS: ATTEND Surgery | DX: S81.802A Unspecified open wound, left lower leg, initial encounter (principal); I89.0 Lymphedema, not elsewhere classified | CPT/HCPCS: 29581 ==

== ENCOUNTER → 2020-10-07 | Outpatient (CLI) | payer MEDICAID, OTHER | LOC: WOUNDCARE 08:10 | PROVIDERS: ATTEND Surgery | DX: I89.0 Lymphedema, not elsewhere classified (principal); I97.89 Other postprocedural complications and disorders of the circulatory system, not elsewhere classified; L97.222 Non-pressure chronic ulcer of left calf with fat layer exposed; S81.802D Unspecified open wound, left lower leg, subsequent encounter; C43.72 Malignant melanoma of left lower limb, including hip; C77.4 Secondary and unspecified malignant neoplasm of inguinal and lower limb lymph nodes; I87.2 Venous insufficiency (chronic) (peripheral); T65.222A Toxic effect of tobacco cigarettes, intentional self-harm, initial encounter; I96 Gangrene, not elsewhere classified; F17.218 Nicotine dependence, cigarettes, with other nicotine-induced disorders | CPT/HCPCS: 11042; 11045 ==

== ENCOUNTER → 2020-10-10 | Outpatient (CLI) | payer MEDICAID, OTHER | LOC: WOUNDCARE 09:29 | PROVIDERS: ATTEND Orthopaedic Surgery Hand Surgery | DX: S81.802A Unspecified open wound, left lower leg, initial encounter (principal); I89.0 Lymphedema, not elsewhere classified | CPT/HCPCS: 29581 ==

== ENCOUNTER → 2020-10-14 | Outpatient (CLI) | payer MEDICAID, OTHER | LOC: WOUNDCARE 13:19 | PROVIDERS: ATTEND Surgery | DX: I89.0 Lymphedema, not elsewhere classified (principal); I97.89 Other postprocedural complications and disorders of the circulatory system, not elsewhere classified; L97.522 Non-pressure chronic ulcer of other part of left foot with fat layer exposed; S81.802D Unspecified open wound, left lower leg, subsequent encounter; C43.72 Malignant melanoma of left lower limb, including hip; C77.4 Secondary and unspecified malignant neoplasm of inguinal and lower limb lymph nodes; I87.2 Venous insufficiency (chronic) (peripheral); T65.222A Toxic effect of tobacco cigarettes, intentional self-harm, initial encounter; I96 Gangrene, not elsewhere classified; F17.218 Nicotine dependence, cigarettes, with other nicotine-induced disorders | CPT/HCPCS: 11042; 11045 ==

== ENCOUNTER → 2020-10-17 | Outpatient (CLI) | payer MEDICAID | LOC: WOUNDCARE 08:52 | PROVIDERS: ATTEND Surgery | DX: S81.802A Unspecified open wound, left lower leg, initial encounter (principal); I89.0 Lymphedema, not elsewhere classified | CPT/HCPCS: 29581 ==

== ENCOUNTER → 2020-10-21 | Outpatient (CLI) | payer MEDICAID | LOC: WOUNDCARE 11:02 | PROVIDERS: ATTEND Surgery | DX: I89.0 Lymphedema, not elsewhere classified (principal); I97.89 Other postprocedural complications and disorders of the circulatory system, not elsewhere classified; L97.222 Non-pressure chronic ulcer of left calf with fat layer exposed; S81.802A Unspecified open wound, left lower leg, initial encounter; C43.72 Malignant melanoma of left lower limb, including hip; C77.4 Secondary and unspecified malignant neoplasm of inguinal and lower limb lymph nodes; I87.2 Venous insufficiency (chronic) (peripheral); T65.222A Toxic effect of tobacco cigarettes, intentional self-harm, initial encounter; I96 Gangrene, not elsewhere classified; F17.218 Nicotine dependence, cigarettes, with other nicotine-induced disorders | CPT/HCPCS: 11042; 11045 ==

== ENCOUNTER → 2020-10-21 | Outpatient (CLI) | payer MEDICAID, OTHER ==
--- NOTE | 2020-10-21 14:39 | Diagnostic Imaging Report ---
INDICATION: Malignant melanoma of the left lower limb with subsequent restaging. Serum blood glucose level at the time of injection is 117 mg/dL. Patient was administered 11.6 mCi F-18 FDG intravenously in left antecubital location and whole body PET imaging was performed. Noncontrast CT was also performed for attenuation correction and anatomic correlation. No prior PET/CT study is available for comparison. There is symmetric activity throughout the brain. Soft tissues of the neck are unremarkable. No mediastinal or hilar hypermetabolism is identified. No pulmonary parenchymal hypermetabolism is identified. There is physiologic activity throughout the gastrointestinal and genitourinary tracts of the abdomen and pelvis. Imaging through the lower extremities does show edema within the subcutaneous tissues of the left lower extremity. There is some hypermetabolism noted within the soft tissues overlying the anterior aspect of the tibia at the level of the mid shaft. No definite intraosseous hypermetabolism is identified. Activity within the soft tissues demonstrates an SUV max of approximately 4.3. IMPRESSION: Unremarkable whole body PET/CT study apart from uptake in the soft tissues overlying the mid shaft of the left tibia. No other suspicious foci are identified. Dictated by: Dictated on workstation # [id number]
== END ==
LOC: RAD 09:00
PROVIDERS: ATTEND Nurse Practitioner Adult Health
DX: C43.72 Malignant melanoma of left lower limb, including hip (principal)

== ENCOUNTER → 2020-10-28 | Outpatient (CLI) | payer MEDICAID | LOC: WOUNDCARE 09:02 | PROVIDERS: ATTEND Surgery | DX: C43.72 Malignant melanoma of left lower limb, including hip (principal); C77.4 Secondary and unspecified malignant neoplasm of inguinal and lower limb lymph nodes; I96 Gangrene, not elsewhere classified; I89.0 Lymphedema, not elsewhere classified; I97.89 Other postprocedural complications and disorders of the circulatory system, not elsewhere classified; S81.802D Unspecified open wound, left lower leg, subsequent encounter; I87.2 Venous insufficiency (chronic) (peripheral) | CPT/HCPCS: 11042; 11045 ==

== ENCOUNTER → 2020-10-31 | Outpatient (CLI) | payer MEDICAID | LOC: WOUNDCARE 09:57 | PROVIDERS: ATTEND Surgery | DX: S81.802A Unspecified open wound, left lower leg, initial encounter (principal); I89.0 Lymphedema, not elsewhere classified | CPT/HCPCS: 29581 ==

== ENCOUNTER → 2020-12-24 | Outpatient (CLI) | payer MEDICAID | LOC: WOUNDCARE 08:56 | PROVIDERS: ATTEND Family Medicine | DX: C43.72 Malignant melanoma of left lower limb, including hip (principal); I89.0 Lymphedema, not elsewhere classified; L97.222 Non-pressure chronic ulcer of left calf with fat layer exposed; G90.09 Other idiopathic peripheral autonomic neuropathy; Z72.0 Tobacco use | CPT/HCPCS: 11042; 11045 ==

== ENCOUNTER → 2020-12-26 | Outpatient (CLI) | payer MEDICAID | LOC: WOUNDCARE 11:47 | PROVIDERS: ATTEND Family Medicine | DX: S81.802A Unspecified open wound, left lower leg, initial encounter (principal); I89.0 Lymphedema, not elsewhere classified | CPT/HCPCS: 99212 ==

== ENCOUNTER → 2020-12-29 | Outpatient (CLI) | payer MEDICAID | LOC: WOUNDCARE 11:19 | PROVIDERS: ATTEND Family Medicine | DX: C43.72 Malignant melanoma of left lower limb, including hip (principal); I89.0 Lymphedema, not elsewhere classified; L97.222 Non-pressure chronic ulcer of left calf with fat layer exposed; G90.09 Other idiopathic peripheral autonomic neuropathy; I96 Gangrene, not elsewhere classified; Z72.0 Tobacco use | CPT/HCPCS: 11042; 11045 ==

== ENCOUNTER → 2021-01-01 | Outpatient (CLI) | payer MEDICAID | LOC: WOUNDCARE 15:08 | PROVIDERS: ATTEND Family Medicine | DX: S81.802A Unspecified open wound, left lower leg, initial encounter (principal); I89.0 Lymphedema, not elsewhere classified; J45.909 Unspecified asthma, uncomplicated; G62.9 Polyneuropathy, unspecified; F41.9 Anxiety disorder, unspecified | CPT/HCPCS: 29581 ==

== ENCOUNTER → 2021-01-05 | Outpatient (CLI) | payer MEDICAID | LOC: WOUNDCARE 10:54 | PROVIDERS: ATTEND Family Medicine | DX: I89.0 Lymphedema, not elsewhere classified (principal); I96 Gangrene, not elsewhere classified; C43.72 Malignant melanoma of left lower limb, including hip; L97.222 Non-pressure chronic ulcer of left calf with fat layer exposed; G90.09 Other idiopathic peripheral autonomic neuropathy; Z72.0 Tobacco use | CPT/HCPCS: 11042; 11045 ==

== ENCOUNTER → 2021-01-05 | Outpatient (RCR) | payer MEDICAID, OTHER ==
[~2021-01-05] MED LIST changes: +FERRIC CARBOXYMALTOSE (CANCER) 750 MG in NS (IVPB) CANCER CENTER 250 ML IV SCH; +FLU QUADRIvalent (3YOA+) 60 mcg/0.5 ml 2021-22(CANCER CTR) IM ONE; +NS (IVPB) CANCER CENTER 250 ML IV SCH; +NS IV 500 ML (CANCER CENTER) IV SCH; +PEMBROLIZUMAB 200 MG in NS (IVPB) CANCER CENTER 50 ML IV SCH
[2021-01-05 12:31] LABS: BASOPHILS % (AUTO) 1 % (0-10); EOSINOPHILS # (AUTO) 0.1 10^3/uL (0.0-0.3); EOSINOPHILS % (AUTO) 2 % (0-10); HEMATOCRIT 44 % (40-54); HEMOGLOBIN 13.8 g/dL (13.3-17.7); LYMPHOCYTES % (AUTO) 32 % (12-44); MEAN CORPUSCULAR HEMOGLOBIN 30 pg (25-34); MEAN CORPUSCULAR HGB CONC 31 g/dL (32-36); MEAN CORPUSCULAR VOLUME 94 fL (80-99); MONOCYTES # (AUTO) 0.6 10^3/uL (0.0-1.0); MONOCYTES % (AUTO) 10 % (0-12); NEUTROPHILS # (AUTO) 3.4 10^3/uL (1.8-7.8); NEUTROPHILS % (AUTO) 55 % (42-75); PLATELET COUNT 293 10^3/uL (130-400); WHITE BLOOD COUNT 6.2 10^3/uL (4.3-11.0)
[2021-01-05 12:53] LABS: BILIRUBIN,TOTAL 0.6 MG/DL (0.1-1.0); CALCIUM 8.9 MG/DL (8.5-10.1); CREATININE SERUM 0.74 MG/DL (0.60-1.30); POTASSIUM 3.7 MMOL/L (3.6-5.0); TOTAL PROTEIN 7.3 GM/DL (6.4-8.2)
== END | disposition home or self-care (01) ==
LOC: ONC 10-07 09:00
PROVIDERS: ATTEND Internal Medicine Hematology & Oncology
DX: C43.72 Malignant melanoma of left lower limb, including hip (principal); C77.3 Secondary and unspecified malignant neoplasm of axilla and upper limb lymph nodes; D50.9 Iron deficiency anemia, unspecified; Z98.890 Other specified postprocedural states; Z23 Encounter for immunization
CPT/HCPCS: 80053; 83615; 85025; 90471; 99213

== ENCOUNTER → 2021-01-19 | Outpatient (CLI) | payer MEDICAID ==
[~2021-01-19] MED LIST changes: -FERRIC CARBOXYMALTOSE (CANCER) 750 MG in NS (IVPB) CANCER CENTER 250 ML IV SCH; -FLU QUADRIvalent (3YOA+) 60 mcg/0.5 ml 2021-22(CANCER CTR) IM ONE; -NS (IVPB) CANCER CENTER 250 ML IV SCH; -NS IV 500 ML (CANCER CENTER) IV SCH; -PEMBROLIZUMAB 200 MG in NS (IVPB) CANCER CENTER 50 ML IV SCH
== END ==
LOC: WOUNDCARE 10:28
PROVIDERS: ATTEND Family Medicine
DX: C43.72 Malignant melanoma of left lower limb, including hip (principal); I96 Gangrene, not elsewhere classified; I89.0 Lymphedema, not elsewhere classified; L97.222 Non-pressure chronic ulcer of left calf with fat layer exposed; G90.09 Other idiopathic peripheral autonomic neuropathy; Z72.0 Tobacco use
CPT/HCPCS: 11042; 11045

== ENCOUNTER → 2021-01-23 | Outpatient (CLI) | payer MEDICAID | LOC: WOUNDCARE 10:21 | PROVIDERS: ATTEND Family Medicine | DX: S81.802A Unspecified open wound, left lower leg, initial encounter (principal); I89.0 Lymphedema, not elsewhere classified | CPT/HCPCS: 29581 ==

== ENCOUNTER → 2021-01-26 | Outpatient (CLI) | payer MEDICAID | LOC: WOUNDCARE 10:20 | PROVIDERS: ATTEND Family Medicine | DX: C43.72 Malignant melanoma of left lower limb, including hip (principal); I89.0 Lymphedema, not elsewhere classified; I96 Gangrene, not elsewhere classified; L97.222 Non-pressure chronic ulcer of left calf with fat layer exposed; G90.09 Other idiopathic peripheral autonomic neuropathy; Z72.0 Tobacco use | CPT/HCPCS: 11042; 11045 ==

== ENCOUNTER → 2021-02-10 | Outpatient (CLI) | payer MEDICAID | LOC: WOUNDCARE 10:26 | PROVIDERS: ATTEND Family Medicine | DX: C43.72 Malignant melanoma of left lower limb, including hip (principal); I96 Gangrene, not elsewhere classified; I89.0 Lymphedema, not elsewhere classified; L97.222 Non-pressure chronic ulcer of left calf with fat layer exposed; G90.09 Other idiopathic peripheral autonomic neuropathy; L03.116 Cellulitis of left lower limb; Z72.0 Tobacco use | CPT/HCPCS: 11042; 11045 ==

== ENCOUNTER → 2021-02-13 | Outpatient (CLI) | payer MEDICAID | LOC: WOUNDCARE 08:57 | PROVIDERS: ATTEND Family Medicine | DX: S81.802A Unspecified open wound, left lower leg, initial encounter (principal); I89.0 Lymphedema, not elsewhere classified | CPT/HCPCS: 29581 ==

== ENCOUNTER → 2021-02-16 | Outpatient (CLI) | payer MEDICAID | LOC: WOUNDCARE 10:47 | PROVIDERS: ATTEND Family Medicine | DX: I89.0 Lymphedema, not elsewhere classified (principal); C43.72 Malignant melanoma of left lower limb, including hip; L97.222 Non-pressure chronic ulcer of left calf with fat layer exposed; G90.09 Other idiopathic peripheral autonomic neuropathy; L03.116 Cellulitis of left lower limb; I96 Gangrene, not elsewhere classified; Z72.0 Tobacco use | CPT/HCPCS: 11042; 11045 ==

== ENCOUNTER → 2021-02-17 | Outpatient (CLI) | payer MEDICAID ==
[~2021-02-17] MED LIST changes: +BARIUM SUSPENSION 2.1% (VANILLA SILQ) 450 ML PO ONE; +CATHETER FLUSH 10 ML SYR IV PRN; +HOLD METFORMIN - RECEIVED CONTRAST 20 ML VIAL IV SCH; +IOHEXOL 350 MG/ML 100 ML (OMNIPAQUE 350) VIAL IV ONE; +NS 100 ML (IVPB) BAG IV ONE
--- NOTE | 2021-02-17 12:19 | Diagnostic Imaging Report ---
PROCEDURE: CT chest, abdomen, and pelvis with contrast. TECHNIQUE: Multiple contiguous axial images were obtained through the chest, abdomen, and pelvis after the administration of intravenous contrast. Auto Exposure Controls were utilized during the CT exam to meet ALARA standards for radiation dose reduction. INDICATION: Melanoma. COMPARISON: 08/19/2020. FINDINGS: CHEST: There are some tiny bilateral upper lobe predominantly apical centrilobular minute nodular densities which have increased from the prior exam, likely reflective of respiratory bronchiolitis. No consolidating pneumonia. No suspicious pulmonary nodule or findings felt suggestive of metastatic disease. There is no thoracic lymphadenopathy and no suspicious chest wall pathology. No effusion or pneumothorax. ABDOMEN/PELVIS: The gallbladder is absent. The liver, spleen, adrenals, and pancreas are unremarkable. No biliary dilatation. The unobstructed kidneys are normal. Fatty umbilical hernia, chronic. No herniation of viscus. No acute abdominal wall pathology. Noninflamed diverticulosis of the sigmoid, chronic. Some post surgical scarring in the fat of the left groin with adjacent surgical clips is stable and presumed sequelae of previous surgery. The pelvic sidewall is unremarkable. No abdominal/pelvic ileo-inguinal adenopathy. No mesenteric or retroperitoneal mass. No suspicious bony lesion. IMPRESSION: Probable bilateral upper lobe respiratory bronchiolitis, mildly increased from the prior, but no evidence for thoracic metastasis. The abdomen and pelvis show stable post operative scarring in the left groin without evidence for neoplastic recurrence or metastasis. Dictated by: Dictated on workstation # [id number]
--- NOTE | 2021-02-17 17:13 | Diagnostic Imaging Report ---
INDICATION: Melanoma in the left lower leg. TECHNIQUE: Patient was administered 26.8 mCi technetium-99m MDP intravenously, and whole body imaging was performed after a three-hour delay. COMPARISON: No prior bone scans are available for comparison. FINDINGS: There is normal uptake of activity by the axial and appendicular skeleton. There is uptake by the kidneys with excretion into the urinary bladder. Abnormal uptake is identified at the level of the mid left tibia. No other suspicious foci are seen. IMPRESSION: Abnormal uptake in the mid left tibia. While this could be on an infectious/inflammatory basis, the possibility of metastatic involvement cannot be entirely excluded. Dictated by: Dictated on workstation # [id number]
== END ==
LOC: CARD 11:16
PROVIDERS: ATTEND Nurse Practitioner Adult Health
DX: C43.72 Malignant melanoma of left lower limb, including hip (principal)
CPT/HCPCS: 71260; 74177; 78306

== ENCOUNTER → 2021-02-20 | Outpatient (CLI) | payer MEDICAID ==
[~2021-02-20] MED LIST changes: -BARIUM SUSPENSION 2.1% (VANILLA SILQ) 450 ML PO ONE; -CATHETER FLUSH 10 ML SYR IV PRN; -HOLD METFORMIN - RECEIVED CONTRAST 20 ML VIAL IV SCH; -IOHEXOL 350 MG/ML 100 ML (OMNIPAQUE 350) VIAL IV ONE; -NS 100 ML (IVPB) BAG IV ONE
== END ==
LOC: WOUNDCARE 08:07
PROVIDERS: ATTEND Family Medicine
DX: S81.802A Unspecified open wound, left lower leg, initial encounter (principal); I89.0 Lymphedema, not elsewhere classified
CPT/HCPCS: 29581

== ENCOUNTER → 2021-02-23 | Outpatient (CLI) | payer MEDICAID | LOC: WOUNDCARE 10:57 | PROVIDERS: ATTEND Family Medicine | DX: C43.72 Malignant melanoma of left lower limb, including hip (principal); I96 Gangrene, not elsewhere classified; I89.0 Lymphedema, not elsewhere classified; L97.222 Non-pressure chronic ulcer of left calf with fat layer exposed; G90.09 Other idiopathic peripheral autonomic neuropathy; Z72.0 Tobacco use | CPT/HCPCS: 11042; 11045 ==

== ENCOUNTER 2021-02-24 13:47 | Outpatient (RCR) | payer MEDICAID, OTHER | END 2021-03-06 | disposition home or self-care (01) | LOC: ONC 13:47 | PROVIDERS: ATTEND Internal Medicine Hematology & Oncology | DX: C43.72 Malignant melanoma of left lower limb, including hip (principal); C77.3 Secondary and unspecified malignant neoplasm of axilla and upper limb lymph nodes; D50.9 Iron deficiency anemia, unspecified; E66.9 Obesity, unspecified; F17.200 Nicotine dependence, unspecified, uncomplicated; Z98.890 Other specified postprocedural states | CPT/HCPCS: 99213 ==

== ENCOUNTER → 2021-03-11 | Outpatient (CLI) | payer MEDICAID | LOC: WOUNDCARE 09:31 | PROVIDERS: ATTEND Family Medicine | DX: I89.0 Lymphedema, not elsewhere classified (principal); C43.72 Malignant melanoma of left lower limb, including hip; L97.222 Non-pressure chronic ulcer of left calf with fat layer exposed; G90.09 Other idiopathic peripheral autonomic neuropathy; L03.116 Cellulitis of left lower limb; B37.2 Candidiasis of skin and nail; I96 Gangrene, not elsewhere classified; Z72.0 Tobacco use | CPT/HCPCS: 11042; 11045; 87070; 87077; 87205 ==

== ENCOUNTER → 2021-03-16 | Outpatient (CLI) | payer MEDICAID | LOC: WOUNDCARE 10:53 | PROVIDERS: ATTEND Family Medicine | DX: I89.0 Lymphedema, not elsewhere classified (principal); C43.72 Malignant melanoma of left lower limb, including hip; L97.222 Non-pressure chronic ulcer of left calf with fat layer exposed; G90.09 Other idiopathic peripheral autonomic neuropathy; B37.2 Candidiasis of skin and nail; I96 Gangrene, not elsewhere classified; Z72.0 Tobacco use | CPT/HCPCS: 11042; 11045 ==

== ENCOUNTER → 2021-03-24 | Outpatient (CLI) | payer MEDICAID | LOC: WOUNDCARE 08:54 | PROVIDERS: ATTEND Family Medicine | DX: I89.0 Lymphedema, not elsewhere classified (principal); C43.72 Malignant melanoma of left lower limb, including hip; L97.222 Non-pressure chronic ulcer of left calf with fat layer exposed; G90.09 Other idiopathic peripheral autonomic neuropathy; B37.2 Candidiasis of skin and nail; I96 Gangrene, not elsewhere classified; Z72.0 Tobacco use | CPT/HCPCS: 11042; 11045 ==

== ENCOUNTER → 2021-03-27 | Outpatient (CLI) | payer MEDICAID | LOC: WOUNDCARE 09:16 | PROVIDERS: ATTEND Family Medicine | DX: S81.802A Unspecified open wound, left lower leg, initial encounter (principal); I89.0 Lymphedema, not elsewhere classified | CPT/HCPCS: 29581 ==

== ENCOUNTER → 2021-03-30 | Outpatient (CLI) | payer MEDICAID | LOC: WOUNDCARE 10:41 | PROVIDERS: ATTEND Family Medicine | DX: I89.0 Lymphedema, not elsewhere classified (principal); C43.72 Malignant melanoma of left lower limb, including hip; L97.222 Non-pressure chronic ulcer of left calf with fat layer exposed; G90.09 Other idiopathic peripheral autonomic neuropathy; Z72.0 Tobacco use | CPT/HCPCS: 11042; 11045 ==

== ENCOUNTER → 2021-04-02 | Outpatient (CLI) | payer MEDICAID | LOC: WOUNDCARE 08:20 | PROVIDERS: ATTEND Family Medicine | DX: S81.802A Unspecified open wound, left lower leg, initial encounter (principal); I89.0 Lymphedema, not elsewhere classified | CPT/HCPCS: 29581 ==

== ENCOUNTER → 2021-04-07 | Outpatient (CLI) | payer MEDICAID | LOC: WOUNDCARE 09:05 | PROVIDERS: ATTEND Family Medicine | DX: C43.72 Malignant melanoma of left lower limb, including hip (principal); I89.0 Lymphedema, not elsewhere classified; I96 Gangrene, not elsewhere classified; L97.222 Non-pressure chronic ulcer of left calf with fat layer exposed; G90.09 Other idiopathic peripheral autonomic neuropathy; Z72.0 Tobacco use | CPT/HCPCS: 11042; 11045 ==

== ENCOUNTER → 2021-04-13 | Outpatient (CLI) | payer MEDICAID | LOC: WOUNDCARE 10:48 | PROVIDERS: ATTEND Family Medicine | DX: I89.0 Lymphedema, not elsewhere classified (principal); C43.72 Malignant melanoma of left lower limb, including hip; L97.222 Non-pressure chronic ulcer of left calf with fat layer exposed; G90.09 Other idiopathic peripheral autonomic neuropathy; B37.2 Candidiasis of skin and nail; I96 Gangrene, not elsewhere classified; Z72.0 Tobacco use | CPT/HCPCS: 11042; 11045 ==

== ENCOUNTER → 2021-04-20 | Outpatient (CLI) | payer MEDICAID | LOC: WOUNDCARE 10:47 | PROVIDERS: ATTEND Family Medicine | DX: I89.0 Lymphedema, not elsewhere classified (principal); C43.72 Malignant melanoma of left lower limb, including hip; L97.222 Non-pressure chronic ulcer of left calf with fat layer exposed; G90.09 Other idiopathic peripheral autonomic neuropathy; B37.2 Candidiasis of skin and nail; I96 Gangrene, not elsewhere classified; Z72.0 Tobacco use | CPT/HCPCS: 11042 ==

== ENCOUNTER → 2021-04-28 | Outpatient (CLI) | payer MEDICAID | LOC: WOUNDCARE 10:58 | PROVIDERS: ATTEND Family Medicine | DX: I96 Gangrene, not elsewhere classified (principal); I89.0 Lymphedema, not elsewhere classified; C43.72 Malignant melanoma of left lower limb, including hip; L97.222 Non-pressure chronic ulcer of left calf with fat layer exposed; G90.09 Other idiopathic peripheral autonomic neuropathy; B37.2 Candidiasis of skin and nail; Z72.0 Tobacco use | CPT/HCPCS: 11042 ==

== ENCOUNTER → 2021-05-05 | Outpatient (CLI) | payer MEDICAID | LOC: WOUNDCARE 11:02 | PROVIDERS: ATTEND Family Medicine | DX: I89.0 Lymphedema, not elsewhere classified (principal); C43.72 Malignant melanoma of left lower limb, including hip; L97.222 Non-pressure chronic ulcer of left calf with fat layer exposed; G90.09 Other idiopathic peripheral autonomic neuropathy; B37.2 Candidiasis of skin and nail; I96 Gangrene, not elsewhere classified; Z72.0 Tobacco use | CPT/HCPCS: 11042 ==

== ENCOUNTER → 2021-05-12 | Outpatient (CLI) | payer MEDICAID | LOC: WOUNDCARE 10:45 | PROVIDERS: ATTEND Family Medicine | DX: I89.0 Lymphedema, not elsewhere classified (principal); C43.72 Malignant melanoma of left lower limb, including hip; L97.222 Non-pressure chronic ulcer of left calf with fat layer exposed; G90.09 Other idiopathic peripheral autonomic neuropathy; B37.2 Candidiasis of skin and nail; I96 Gangrene, not elsewhere classified; Z72.0 Tobacco use | CPT/HCPCS: 11042 ==

== ENCOUNTER → 2021-05-25 | Outpatient (CLI) | payer MEDICAID | LOC: WOUNDCARE 10:45 | PROVIDERS: ATTEND Family Medicine | DX: I89.0 Lymphedema, not elsewhere classified (principal); C43.72 Malignant melanoma of left lower limb, including hip; L97.222 Non-pressure chronic ulcer of left calf with fat layer exposed; G90.09 Other idiopathic peripheral autonomic neuropathy; B37.2 Candidiasis of skin and nail; I96 Gangrene, not elsewhere classified; Z72.0 Tobacco use | CPT/HCPCS: 11042 ==

== ENCOUNTER → 2021-06-01 | Outpatient (CLI) | payer MEDICAID | LOC: WOUNDCARE 10:51 | PROVIDERS: ATTEND Family Medicine | DX: L97.222 Non-pressure chronic ulcer of left calf with fat layer exposed (principal); C43.72 Malignant melanoma of left lower limb, including hip; G90.09 Other idiopathic peripheral autonomic neuropathy; B37.2 Candidiasis of skin and nail; I89.0 Lymphedema, not elsewhere classified; I96 Gangrene, not elsewhere classified; Z72.0 Tobacco use | CPT/HCPCS: 11042 ==

== ENCOUNTER → 2021-06-08 | Outpatient (CLI) | payer MEDICAID | LOC: WOUNDCARE 10:30 | PROVIDERS: ATTEND Family Medicine | DX: L97.222 Non-pressure chronic ulcer of left calf with fat layer exposed (principal); C43.72 Malignant melanoma of left lower limb, including hip; I89.0 Lymphedema, not elsewhere classified; G90.09 Other idiopathic peripheral autonomic neuropathy; B37.2 Candidiasis of skin and nail; I96 Gangrene, not elsewhere classified; Z72.0 Tobacco use | CPT/HCPCS: 11042 ==

== ENCOUNTER → 2021-06-15 | Outpatient (CLI) | payer MEDICAID | LOC: WOUNDCARE 10:12 | PROVIDERS: ATTEND Family Medicine | DX: I89.0 Lymphedema, not elsewhere classified (principal); C43.72 Malignant melanoma of left lower limb, including hip; I96 Gangrene, not elsewhere classified; L97.222 Non-pressure chronic ulcer of left calf with fat layer exposed; G90.09 Other idiopathic peripheral autonomic neuropathy; B37.2 Candidiasis of skin and nail; Z72.0 Tobacco use | CPT/HCPCS: 11042 ==

== ENCOUNTER → 2021-06-29 | Outpatient (CLI) | payer MEDICAID | LOC: WOUNDCARE 10:48 | PROVIDERS: ATTEND Family Medicine | DX: L97.222 Non-pressure chronic ulcer of left calf with fat layer exposed (principal); C43.72 Malignant melanoma of left lower limb, including hip; I89.0 Lymphedema, not elsewhere classified; G90.09 Other idiopathic peripheral autonomic neuropathy; R31.0 Gross hematuria; Z72.0 Tobacco use; I96 Gangrene, not elsewhere classified | CPT/HCPCS: 11042 ==

== ENCOUNTER → 2021-06-30 | Outpatient (CLI) | payer MEDICAID ==
--- NOTE | 2021-06-30 15:23 | Diagnostic Imaging Report ---
Indication: Melanoma. The patient was administered 26.5 mCi technetium 99m MDP intravenously and whole-body imaging was performed after a 3 hour delay. Correlation is made with prior whole body bone scan from 02/17/2021. Normal uptake of activity by the axial and appendicular skeleton is noted. There is uptake by the kidneys with excretion into the urinary bladder. Abnormal uptake involving the mid left tibia is again noted and unchanged. No other suspicious foci are identified. IMPRESSION: Stable whole body bone scan since exam from 02/17/2021 with continued uptake in the mid shaft of the left tibia. Dictated by: Dictated on workstation # [id number]
== END ==
LOC: CARD 11:00
PROVIDERS: ATTEND Nurse Practitioner Adult Health
DX: C43.72 Malignant melanoma of left lower limb, including hip (principal); L98.499 Non-pressure chronic ulcer of skin of other sites with unspecified severity
CPT/HCPCS: 78306

== ENCOUNTER 2021-11-18 06:30 | Outpatient (CLI) | payer MEDICARE, MEDICAID ==
[~2021-11-18] VITALS: Ht 177.8 cm; Wt 130.5 kg
[2021-11-18] MEDS ORDERED: CARV25TA PO (11:47)
[2021-11-18] MEDS ORDERED: FINA5TAB6 PO (11:47)
[2021-11-18] MEDS ORDERED: FURO20TA4 PO (11:47)
[2021-11-18] MEDS ORDERED: OMEP40CA6 PO (11:47)
[2021-11-18] MEDS ORDERED: TMSL.4C PO (11:47)
[2021-11-18] MEDS ORDERED: POTA-177 PO (11:47)
[2021-11-18] MEDS ORDERED: GABA-486 PO (11:47)
[2021-11-18] MEDS ORDERED: OXYC10TA7 PO (11:47)
[2021-11-18] MEDS ORDERED: FLUT1BLS3 IH (11:47)
[2021-11-18] MEDS ORDERED: GABA300C PO (11:47)
== END 2021-11-18 11:53 | disposition home or self-care (01) ==
LOC: PREOP 06:30
PROVIDERS: ATTEND Surgery
DX: Z01.818 Encounter for other preprocedural examination (principal)

== ENCOUNTER 2021-11-24 11:54 | Day surgery (SDC) | payer MEDICARE, MEDICAID ==
[~2021-11-24] VITALS: Ht 177 cm; Wt 130.5 kg
[~2021-11-24 11:54] MED LIST changes: +CARV25TA PO; +FINA5TAB6 PO; +FLUT1BLS3 IH; +FURO20TA4 PO; +GABA-486 PO; +GABA300C PO; +OMEP40CA6 PO; +OXYC10TA7 PO; +POTA-177 PO; +TMSL.4C PO
[2021-11-24] MEDS ORDERED: LACTATED RINGERS 1,000 ML IV STA (12:01)
[2021-11-24] MEDS ORDERED: LACTATED RINGERS 1,000 ML IV ONE (12:12)
[2021-11-24] MEDS ORDERED: HURRICAINE EXT TUBE (BENZOCAINE) XX PRN (12:15)
[2021-11-24 12:18] VITALS: BP 147/94
--- NOTE | 2021-11-24 13:24 | Progress Note-Pre Operative ---
Pre-Operative Progress Note Date of Available H&P: Nov 13, 2021 Date H&P Reviewed: Nov 24, 2021 Time H&P Reviewed: 13:24 History & Physical: H&P Reviewed, Patient Examed, No changes noted Pre-Operative Diagnosis: iron def anemia JOSE CUMMINGS DO Nov 24, 2021 13:24
[2021-11-24] MEDS ORDERED: PROPOFOL INJECTION 50 ML IV ONE ×3 (13:53→14:45)
[2021-11-24 15:10] VITALS: BP 145/90
--- NOTE | 2021-11-24 15:13 | Discharge Inst-Simple/Standard ---
Discharge Inst-Standard Patient Instructions/Follow Up Plan of Care/Instructions/FU: 2 weeks Darci Activity as Tolerated: Yes Discharge Diet: Regular Diet (high fiber) JOSE CUMMINGS DO Nov 24, 2021 15:13
[2021-11-24 15:15] VITALS: BP 139/83
[2021-11-24 15:40] VITALS: BP 151/95
[2021-11-24 15:48] VITALS: BP 151/95
--- NOTE | 2021-11-24 22:45 | OPERATIVE REPORT ---
DATE OF SERVICE: 11/24/2021 PREOPERATIVE DIAGNOSIS: Iron deficiency anemia. POSTOPERATIVE DIAGNOSES: Normal EGD, colon polyps, diverticulosis. PROCEDURES: EGD, colonoscopy with hot biopsy polypectomy x2 and snare polypectomy x7 Araceli inking of the descending colon polyp. SURGEON: Jose Bejarano DO ANESTHESIA: Per CAPTION WRITER. ESTIMATED BLOOD LOSS: None. COMPLICATIONS: None. INDICATIONS: The patient is a 46-year-old male with iron deficiency anemia. He understands risks and benefits of procedure and wishes to proceed. Consent was signed in the chart. DESCRIPTION OF PROCEDURE: The patient was taken to the endoscopy suite, placed in left lateral recumbent position. Timeout was performed. Scope was inserted in mouth, down the esophagus, stomach and into the duodenum without difficulty. No polyps, masses or ulcerations within the duodenum. Scope was slowly retracted back to stomach where it was further insufflated. No polyps, masses or ulcerations. Scope was slowly retracted back into the stomach where it was further insufflated. No polyps, masses or ulcerations. Scope was retroflexed noting no other pathology. Scope was returned to its normal position, slowly withdrawn to distal esophagus. No polyps, masses or ulcerations. Scope was slowly retracted back until completely removed noting no other pathology. Digital rectal exam was performed. No palpable polyps, masses or ulcerations, some internal hemorrhoids. Scope was inserted in the rectum, advanced all the way to the cecum with minimal difficulty. Prep was adequate with irrigation and suction. Scope was then slowly retracted back. No polyps, masses or ulcerations in the cecum. In the ascending colon, small polyp was present, which hot biopsy polypectomy was performed. Scope was then continuously retracted back into the transverse colon which polyp was present, which snare polypectomy was performed. This was obtained. Scope was then continuously retracted back into the splenic flexure where two larger polyps were present. Snare polypectomies were performed. Scope was then continuously retracted back into the descending colon where a larger polyp was present, which snare polypectomy was performed. Just distal to this area, 1 mL of Araceli ink was injected, so would be able to visualize for reexamination later. Specimen was then suctioned and withdrawn, obtained for specimen. Scope was reinserted and advanced all the way back to the tattoo. Scope was then continuously retracted back. In the sigmoid colon, minimal diverticulosis present. Also, three polyps, which snare polypectomy was performed and obtained. Scope was then continuously retracted back to the rectum where it was also retroflexed noting no other pathology. Scope was returned to its normal position, slowly withdrawn until completely removed. The patient tolerated the procedure well without any complications, taken to recovery room in stable condition. RECOMMENDATIONS: The patient will need followup on biopsies in a couple of weeks. He will need repeat colonoscopy in one year due to the number of polyps and larger polyps to make sure these have been eradicated and make sure no other polyps were present. Any issues before that would be seen, would reevaluate at that time. Job ID: [id number] DocumentID: [id number] Dictated Date: 11/24/2021 15:17:37 Kst Operator Date: 11/24/2021 22:43:57 Dictated By: JOSE BEJARANO DO
== END 2021-11-24 15:48 | disposition home or self-care (01) ==
LOC: ENDO 11:54
PROVIDERS: ATTEND Surgery
DX: D12.2 Benign neoplasm of ascending colon (principal); D12.3 Benign neoplasm of transverse colon; D12.4 Benign neoplasm of descending colon; K63.5 Polyp of colon; D50.9 Iron deficiency anemia, unspecified; K57.30 Diverticulosis of large intestine without perforation or abscess without bleeding